=== PATIENT | female | born 1945 | race Caucasian/White ===

== ENCOUNTER → 2016-10-11 | Outpatient (CLI) | payer OTHER ==
[~2016-10-11] MED LIST: ACET-1256 PO; ALBINS/ INH; ALBU0.5N2 NEB; ALBUAER INH; ALBUAER PO; ALPR-411 PO; AMB5 PO; CALC500C70 PO; CHOL100010 PO; CHOL2000 PO; CLTP PO; CYAN100020 PO; DILT120C68 PO; DIPH25CA65 PO; DLTCD/240 PO; DOCU-94 PO; DRGTP12 TD; DULO-24 PO; FURO-85 PO; GUAI1TAB68 PO; HYDR-4717 PO; HYDR100T12 PO; HYDR200T5 PO; LDDP5 TD; MOME200A INH; MULT-506 PO; PRD/1 PO; PRD20 PO; PRVIN525X INH; RANI150T3 PO; SNK PO; TPRSR/25 PO; ULT50X PO; VLTG EXT; VNTHFA/IN INH
[2016-10-11 18:21] LABS: BLOOD UREA NITROGEN 35 mg/dl (7-18); BUN/CREATININE RATIO 24.6 (10-20); CALCIUM 8.6 mg/dl (8.5-10.1); CARBON DIOXIDE 25 mmol/L (21-32); CHLORIDE 104 mmol/L (98-107); GLUCOSE 123 mg/dl (70-99); POTASSIUM 3.5 mmol/L (3.5-5.1); SODIUM 139 mmol/L (136-145)
[2016-10-11 18:22] LABS: PHOSPHORUS 3.4 mg/dl (2.5-4.9)
--- NOTE | 2016-10-17 08:50 | CODING QUERY MEDICAL NECESSITY ---
SUPPORTING DIAGNOSIS NEEDED A supporting diagnosis is required for the test/procedure performed on this patient in order for us to be reimbursed by the patient's insurance. Please provide a supporting diagnosis for the following test/procedure listed below next to the test name along with your signature. *If there is no additional diagnosis for this patient that would support the following test/procedure please document that below next to the test/procedure. Test(s)/Procedure(s) that require a supporting diagnosis: * VIT D 25 HYDROXY DIAGNOSIS: * DOS: 10/11/16 Provider Signature: Date: Thank you Maite Velarde Health Information Management Once completed, please kindly fax back to [phone] For questions please call [phone]
== END | disposition home or self-care (01) ==
LOC: C.LAB1850 14:04
PROVIDERS: ATTEND Internal Medicine Nephrology
DX: E87.1 Hypo-osmolality and hyponatremia (principal); E55.9 Vitamin D deficiency, unspecified

== ENCOUNTER → 2016-10-22 | Outpatient (CLI) | payer OTHER ==
[~2016-10-22] MED LIST changes: +OPTIRAY 320 IV PRN
--- NOTE | 2016-10-22 14:31 | DIAGNOSTIC IMAGING REPORT ---
CT ANGIOGRAPHY OF THE CHEST, PULMONARY EMBOLUS PROTOCOL CLINICAL HISTORY: New onset shortness of breath. Ovarian cancer. COMPARISON STUDY: Chest CT July 27, 2014. TECHNIQUE: Following IV administration of 75 mL of Optiray-320, helical axial images of the chest were obtained utilizing the pulmonary embolus protocol. Maximal intensity projections and sagittal and coronal reformats were viewed on an independent 3D workstation. IV contrast was administered without complication. CT DOSE: 253.41 mGycm FINDINGS: No pulmonary emboli are identified. The heart is moderately enlarged. There is no pericardial effusion. There are no enlarged thoracic lymph nodes. There is a trace right pleural effusion. Associated airspace opacity likely reflects atelectasis. The central airways are patent. There is no pneumothorax. Bony thorax is unremarkable. Mild elevation of the right hemidiaphragm is unchanged. A few hepatic cysts are again noted. There is mild dilatation within visualized portions of the left collecting system. A small hiatal hernia is noted. IMPRESSION: 1. No pulmonary emboli identified. 2. Trace right pleural effusion. 3. No consolidation to suggest pneumonia. 4. Mild dilatation of visualized portions of the left renal collecting system, a nonspecific finding. This could be correlated with left flank pain. Electronically signed by: Dayton Downs M.D. 10/22/2016 2:29 PM Dictated Date/Time: 10/22/2016 2:20 PM
== END | disposition home or self-care (01) ==
LOC: C.CTS 13:23
PROVIDERS: ATTEND Nurse Practitioner
DX: C56.9 Malignant neoplasm of unspecified ovary (principal)

== ENCOUNTER 2016-10-23 13:30 | Observation (INO) | payer OTHER ==
[~2016-10-23] VITALS: Ht 157.5 cm; Wt 61.8 kg
[2016-10-23] VITALS (7 sets, daily range): BP systolic 130–154; BP diastolic 61–76; PULSE 74–79; TEMP 36.3–37.1; O2SAT 93–96; Ht 157.5 cm; Wt 61.8 kg
[~2016-10-23 13:30] MED LIST changes: -ALBINS/ INH; -AMB5 PO; -CALC500C70 PO; -CHOL2000 PO; -DLTCD/240 PO; -DRGTP12 TD; -GUAI1TAB68 PO; -HYDR100T12 PO; -LDDP5 TD; -OPTIRAY 320 IV PRN; -PRD20 PO; -PRVIN525X INH; -SNK PO; -TPRSR/25 PO; -ULT50X PO; -VLTG EXT; -VNTHFA/IN INH
[2016-10-23] MEDS ORDERED: VNTHFA/IN INH (13:59)
[2016-10-23] MEDS ORDERED: ALBINS/ INH (13:59)
[2016-10-23] MEDS ORDERED: CALC500C70 PO (13:59)
[2016-10-23] MEDS ORDERED: CHOL2000 PO (14:04)
[2016-10-23] MEDS ORDERED: PRVIN525X INH (14:04)
--- NOTE | 2016-10-23 15:21 | EMERGENCY ROOM VISIT NOTE ---
History Report prepared by Lavon: Fazal Santos Under the Supervision of: Dr. Jairo Lutz M.D. First contact with patient: 14:30 Chief Complaint: SHORTNESS OF BREATH Stated Complaint: SOB, EDEMA TREMORS Nursing Triage Summary: Triage Note: pt reports she has gained 6 lbs over 3 weeks. pt reports bilat leg edema. pt reports increased shortness of breath over the past several days. pt reports hx of copd. pt reports she is being treated for ovarian cancer - had chemo yesterday. pt reports she also had a ct scan of her chest yesterday to look for a clot and it was negative. History of Present Illness The patient is a 71 year old female who presents to the Emergency Room with complaints of worsening shortness of breath starting about 3 weeks ago. The patient also complains of worsening lower extremity edema. She also reports shakiness. She has a history of COPD. She has been using Albuterol and nebulizer treatment without relief. Her dose of Lasix was recently increased. The patient has one kidney on the left. She has stage IV ovarian cancer. She received chemotherapy yesterday. Her PCP referred her to the Emergency Room. The patient denies chest pain, abdominal pain, or any other complaints. Source of History: patient Onset: about 3 weeks ago Position: other (global) Quality: other (shortness of breath) Timing: worsening Modifying Factors (Relieving): other (Albuterol and nebulizer treatment without relief) Associated Symptoms: No abdominal pain, No chest pain Review of Systems See HPI for pertinent positives & negatives. A total of 10 systems reviewed and were otherwise negative. 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 Surgical Problems: (1) No pertinent past surgical history Family History FH: cancer Hypertension Kidney disease Social History Smoking Status: Never Smoker Alcohol Use: occasionally Marital Status: Housing Status: lives with significant other Occupation Status: unemployed Current/Historical Medications Scheduled Calcium/Vitamin D (Os-Corky 500 Plus D), 2 TAB PO BID Cholecalciferol (Vitamin D3), 1 CAP PO DAILY Cyanocobalamin (Vitamin B12), 1 TAB PO DAILY Diltiazem Hcl Ext Rel (Tiazac), 240 MG PO DAILY Duloxetine HCl (Cymbalta), 20 MG PO BID Furosemide (Lasix), 20 MG PO 3XWK Furosemide (Lasix), 40 MG PO 4XWK Hydralazine Hcl (Apresoline), 75 MG PO QID Hydroxychloroquine Sulfate (Plaquenil), 400 MG PO DAILY Multivitamin (Multivitamin), 1 TABLET PO DAILY Prednisone (Prednisone), 5 MG PO DAILY Ranitidine Hcl (Zantac), 150 MG PO DAILY Scheduled PRN Acetaminophen (Tylenol), 1,000 MG PO for Pain Albuterol Hfa (Ventolin Hfa), 2 PUFFS INH Q6H PRN for Shortness of Breath Albuterol Sulf (Albuterol Sulfate), 1 INHA INH UD PRN for Shortness of Breath Alprazolam (Xanax), 0.5 MG PO DAILY PRN for Anxiety Allergies Coded Allergies: Gemcitabine (Verified Allergy, Severe, drug induced rash, 09/28/16) Lanolin (Verified Allergy, Intermediate, RASH, 09/28/16) Latex (Verified Allergy, Intermediate, RASH, 09/28/16) Chlorhexidine (Verified Allergy, Mild, rash, 09/28/16) Codeine (Verified Allergy, Unknown, grits teeth, 10/23/16) Lactose (Verified Allergy, Unknown, GI SYMPTOMS, 10/23/16) Penicillins (Verified Allergy, Unknown, `, 09/28/16) Adhesives (Verified Adverse Reaction, Intermediate, RASH, 09/28/16) Physical Exam Vital Signs Date Time Temp Pulse Resp B/P Pulse Ox O2 Delivery O2 Flow Rate FiO2 10/23/16 18:50 36.3 78 20 131/75 96 10/23/16 18:35 80 10/23/16 18:33 36.3 79 20 135/72 95 10/23/16 17:59 85 20 132/80 96 Room Air 10/23/16 16:38 78 20 120/62 96 Room Air 10/23/16 15:59 96 Room Air 10/23/16 15:59 96 Room Air 10/23/16 14:35 76 16 129/69 94 Room Air 10/23/16 14:35 94 Room Air 10/23/16 14:32 74 10/23/16 13:40 36.6 79 22 149/82 90 Room Air Physical Exam GENERAL: Patient is a healthy-appearing well-nourished HEAD: Normocephalic atraumatic EYES: Ocular movements intact pupils equal and react to light OROPHARYNX mucous membranes are moist no exudates present no erythema or edema present NECK: Supple no nuchal rigidity CHEST: Good equal expansion LUNGS: Clear and equal to auscultation CARDIAC: Normal S1 and S2 ABDOMEN: Soft nontender no guarding BACK: No CVA tenderness RECTAL: Brown stool, heme negative. EXTREMITIES: No pain upon palpation normal muscle strength in all groups no clubbing cyanosis or edema NEURO: Patient is following commands is answering questions appropriately. Alert and oriented x3 Cranial Nerves 2-12 grossly intact Medical Decision & Procedures ER Provider Diagnostic Interpretation: X-ray results as stated below per my interpretation and radiologist interpretation. US results as stated below per my review and radiologist interpretation: BILATERAL LOWER EXTREMITY VENOUS DOPPLER CLINICAL HISTORY: Bilateral leg swelling. COMPARISON STUDY: Right lower extremity venous Doppler September 09, 2012. TECHNIQUE: Sonography of the deep venous system of the bilateral lower extremity was performed. Compression and augmentation were evaluated. FINDINGS: The bilateral common femoral, superficial femoral and popliteal veins were compressible. Augmentation was normal. Flow was shown within the deep calf vessels. A 10 x 3 x 4.2 cm left popliteal fluid collection with low level internal echoes likely reflects a large popliteal cyst. IMPRESSION: 1. No evidence of deep venous thrombus within the bilateral lower extremities. 2. 10 x 3 x 4.2 cm left popliteal fluid collection. This likely reflects a large popliteal cyst. Electronically signed by: Dayton Downs M.D. 10/23/2016 5:33 PM Dictated Date/Time: 10/23/2016 5:31 PM CHEST ONE VIEW PORTABLE CLINICAL HISTORY: Shortness of breath. COMPARISON STUDY: 06/25/2016 FINDINGS: The heart is normal in size. There is mild elevation right hemidiaphragm. There is no focal pulmonary consolidation. There is no failure. There are no pleural effusions.[ A left-sided A-Port catheter is visualized. IMPRESSION: Mild elevation of the right hemidiaphragm. No evidence of focal pulmonary consolidation. Electronically signed by: Zain Lai M.D. 10/23/2016 3:21 PM Dictated Date/Time: 10/23/2016 3:20 PM Laboratory Results Test 10/23/16 00:00 10/23/16 15:45 10/23/16 16:08 10/23/16 18:00 Urine Color YELLOW Urine Appearance CLEAR (CLEAR) Urine pH 5.0 (4.5-7.5) Urine Specific [place] 1.011 (1.000-1.030) Urine Protein 1+ (NEG) Urine Glucose (UA) NEG (NEG) Urine Ketones NEG (NEG) Urine Occult Blood NEG (NEG) Urine Nitrite NEG (NEG) Urine Bilirubin NEG (NEG) Urine Urobilinogen NEG (NEG) Urine Leukocyte Esterase NEG (NEG) Urine WBC (Auto) 1-5 /hpf (0-5) Urine RBC (Auto) 0-4 /hpf (0-4) Urine Hyaline Casts (Auto) 1-5 /lpf (0-5) Urine Epithelial Cells (Auto) 5-10 /lpf (0-5) Urine Bacteria (Auto) NEG (NEG) Immature Granulocyte % (Auto) 0.3 % White Blood Count 6.26 K/uL (4.8-10.8) Red Blood Count 2.75 M/uL (4.2-5.4) Hemoglobin 8.7 g/dL (12.0-16.0) Hematocrit 25.0 % (37-47) Mean Corpuscular Volume 90.9 fL (80-100) Mean Corpuscular Hemoglobin 31.6 pg (25-34) Mean Corpuscular Hemoglobin Concent 34.8 g/dl (32-36) Platelet Count 271 K/uL (130-400) Mean Platelet Volume 8.7 fL (7.4-10.4) Neutrophils (%) (Auto) 83.5 % Lymphocytes (%) (Auto) 7.3 % Monocytes (%) (Auto) 8.9 % Eosinophils (%) (Auto) 0.0 % Basophils (%) (Auto) 0.0 % Neutrophils # (Auto) 5.22 K/uL (1.4-6.5) Lymphocytes # (Auto) 0.46 K/uL (1.2-3.4) Monocytes # (Auto) 0.56 K/uL (0.11-0.59) Eosinophils # (Auto) 0.00 K/uL (0-0.5) Basophils # (Auto) 0.00 K/uL (0-0.2) Immature Granulocyte # (Auto) 0.02 K/uL (0.00-0.02) Red Blood Cell Morphology Unremarkable Total Bilirubin 0.2 mg/dl (0.2-1) Aspartate Amino Transf (AST/SGOT) 32 U/L (15-37) Alanine Aminotransferase (ALT/SGPT) 45 U/L (12-78) Alkaline Phosphatase 56 U/L (45-117) Total Creatine Kinase 171 U/L (26-192) Creatine Kinase MB 6.1 ng/ml (0.5-3.6) Creatine Kinase MB Ratio 3.6 (0-3.0) Troponin I 0.044 ng/ml (0-0.045) Pro-B-Type Natriuretic Peptide 3302 pg/ml (0-900) Total Protein 5.8 gm/dl (6.4-8.2) Albumin 3.0 gm/dl (3.4-5.0) Globulin 2.8 gm/dl (2.5-4.0) Albumin/Globulin Ratio 1.1 (0.9-2) Bedside Hemoglobin 7.8 g/dl (12.0-16.0) Bedside Hematocrit 23 % (37-47) Bedside Sodium 132 mEq/L (135-144) Bedside Potassium 4.2 mEq/L (3.3-5.0) Bedside Chloride 99 mEq/L (101-112) Bedside Total CO2 22 mEq/l (24-31) Bedside Blood Urea Nitrogen 32 mg/dl (7-18) Bedside Creatinine 1.7 mg/dl (0.6-1.3) Bedside Glucose (other) 101 mg/dl (70-99) Bedside Ionized Calcium (Babak) 1.05 mmol/l (1.12-1.32) Influenza Type A (RT-PCR) Neg for Influ A (NEG) Influenza Type B (RT-PCR) Neg for Influ B (NEG) Labs reviewed by ED physician. ECG Indication: SOB/dyspnea Rate (beats per minute): 75 Rhythm: normal sinus Findings: no acute ischemic change, no ectopy ED Course 1430: Past medical records reviewed. The patient was evaluated in room B05. A complete history and physical examination was performed. 1950: Upon reexamination the patient is resting comfortably. I discussed results and treatment plan with the patient. She verbalizes agreement and understanding. [facility] The patient will be evaluated for further management. Medical Decision Differential diagnosis: Etiologies such as infections, reactive airway disease, pneumonia, pneumothorax , COPD, CHF, cardiac ischemia, pulmonary embolism, musculoskeletal, gastrointestinal, as well as others were entertained. This is a 71-year-old female who presents emergency department complaining of increasing shortness of breath. The patient was sent in by her cancer doctor who also ordered a CAT scan of the chest yesterday which was negative for PE. I will note that the patient needed a blood transfusion 3 weeks ago and her hemoglobin has been declining. She is heme-negative on rectal exam. I did discuss the case with the patient's cancer doctor who felt that the patient can be discharged home. I did discuss the case with the hospitalist service because the patient is adamantly very angry about being sent home. For this reason the patient was admitted to the hospitalist service. Blood consent was obtained and signed by the patient. The patient was ordered 2 units of packed red blood cells. Consults Time Called: 1944 Consulting Physician[facility] Returned Call: [address] Velarde from the [facility]. Impression Primary Impression: Symptomatic anemia Additional Impression: Dyspnea Critical Care I have personally spent greater than 30 minutes of critical care time in the direct management of this patient. This includes bedside care, interpretation of diagnostic studies, and testing, discussion with consultants, patient, and family members, and other required patient management activities. This 30 minutes is in excess of all separately billable procedures. Scribe Attestation The scribe's documentation has been prepared under my direction and personally reviewed by me in its entirety. I confirm that the note above accurately reflects all work, treatment, procedures, and medical decision making performed by me. Departure Information Dispostion Being Evaluated By Hospitalist Referrals Krzysztof Crocker MD (PCP) Patient Instructions [facility] Problem Qualifiers Additional Impression: Dyspnea Dyspnea type: dyspnea on exertion Qualified Codes: R06.09 - Other forms of dyspnea
[2016-10-23 16:22] LABS: MEAN CELL VOLUME 90.9 fL (80-100); MEAN CORPUSCULAR HEMOGLOBIN 31.6 pg (25-34); MEAN CORPUSCULAR HGB CONC 34.8 g/dl (32-36); MEAN PLATELET VOLUME 8.7 fL (7.4-10.4); PLATELET COUNT 271 K/uL (130-400); RED BLOOD COUNT 2.75 M/uL (4.2-5.4); WHITE BLOOD COUNT 6.26 K/uL (4.8-10.8)
[2016-10-23 16:24] LABS: ISTAT CREATININE 1.7 mg/dl (0.6-1.3); ISTAT HEMOGLOBIN 7.8 g/dl (12.0-16.0); ISTAT IONIZED CALCIUM 1.05 mmol/l (1.12-1.32)
[2016-10-23 16:32] LABS: BUN/CREATININE RATIO 19.9 (10-20); CALCIUM 8.5 mg/dl (8.5-10.1); CREATININE 1.7 mg/dl (0.60-1.20); POTASSIUM 4.2 mmol/L (3.5-5.1)
[2016-10-23 16:38] LABS: ALB/GLOB RATIO 1.1 (0.9-2); CKMB/CK RATIO 3.6 (0-3.0)
[2016-10-23 17:03] LABS: COMPLETE YES; IG% 0.3 %; LYMPH % 7.3 %; LYMPH ABS # 0.46 K/uL (1.2-3.4); MONO % 8.9 %; NEUT % 83.5 %
--- NOTE | 2016-10-23 17:35 | DIAGNOSTIC IMAGING REPORT ---
BILATERAL LOWER EXTREMITY VENOUS DOPPLER CLINICAL HISTORY: Bilateral leg swelling. COMPARISON STUDY: Right lower extremity venous Doppler September 09, 2012. TECHNIQUE: Sonography of the deep venous system of the bilateral lower extremity was performed. Compression and augmentation were evaluated. FINDINGS: The bilateral common femoral, superficial femoral and popliteal veins were compressible. Augmentation was normal. Flow was shown within the deep calf vessels. A 10 x 3 x 4.2 cm left popliteal fluid collection with low level internal echoes likely reflects a large popliteal cyst. IMPRESSION: 1. No evidence of deep venous thrombus within the bilateral lower extremities. 2. 10 x 3 x 4.2 cm left popliteal fluid collection. This likely reflects a large popliteal cyst. Electronically signed by: Dayton Downs M.D. 10/23/2016 5:33 PM Dictated Date/Time: 10/23/2016 5:31 PM
[2016-10-23] MEDS ORDERED: ACETAMINOPHEN 325 MG TAB PO PRN (19:00)
[2016-10-23] MEDS ORDERED: ALBUTEROL HFA 8 GM INHALER INH PRN (19:00)
[2016-10-23] MEDS ORDERED: MAGNESIUM HYDROXIDE SUSP 30 ML UDC PO PRN (19:00)
[2016-10-23] MEDS ORDERED: ALBUTEROL 0.5% NEB SOLN 2.5 MG/0.5 ML VIAL INH PRN (19:00)
[2016-10-23] MEDS ORDERED: POLYETHYLENE (MIRALAX) 17 GM PACK PO PRN (19:00)
[2016-10-23] MEDS ORDERED: ALUMINUM/MAGNESIUM/SIMETH (MAALOX MAX) 30 ML UDC PO PRN (19:00)
[2016-10-23] MEDS ORDERED: ONDANSETRON INJ 2 MG/ML 2 ML VIAL IV PRN (19:00)
[2016-10-23] MEDS ORDERED: ALPRAZOLAM 0.5 MG TAB PO PRN (19:00)
--- NOTE | 2016-10-23 19:31 | History and Physical ---
History & Physical Date & Time of Service: Oct 23, 2016 at 18:52 Chief Complaint: Sob, Edema Tremors Primary Care Physician: Krzysztof Crocker MD History of Present Illness Source: patient, caregiver Patient is a pleasant 71 y/o female, with PMHx of HTN, CKD stage III, anemia, serous adenocarcinoma of gynecological origin, COPD/asthma, chronic lower extremity edema, GERD, and RA, who presented to the ED because of worsening SOB at rest. Patient admits to chronic SOB but states that today SOB is occurring at rest. Patient saw Dr. Joyner recently, and was prescribed Dulera x4 weeks. It was also discussed with patient that the cause of her SOB could be to metastatic disease. Patient was unhappy with her care from Dr. Joyner and refuses to follow-up with him. She states she did try Dulera with no improvement in her symptoms. Patient also complains of worsening bilateral lower extremity edema. Per patient edema is starting to travel up her legs. However, patient states her legs look better than baseline for her currently. Patient has been receiving chemotherapy x5 years now for gynecological adenocarcinoma. Her last treatment was yesterday (10/22). According to patient, she received chemo ~3 weeks ago and required 2 units PRBC here in the ED after treatment- she was not admitted at that time. She states her symptoms are "way" worse than any other time she was told she was anemic. +tremor- ongoing issue, seems worse today. +lightheadedness. Patient denies any fever, chills, sweats, dizziness, vision changes, CP, palpitations, wheezing, cough, abdominal pain, nausea, vomiting, diarrhea, urinary symptoms, melena, numbness/tingling, weakness, muscle/joint pain, depression, active bleeding, or new skin discoloration/changes. Past Medical/Surgical History 1. Anemia 2. Serous adenocarcinoma 3. COPD/asthma 4. Anxiety 5. Stage III CKD 6. HTN 7. Chronic lower extremity edema, bilateral 8. RA 9. GERD Family History FH: cancer Hypertension Kidney disease Social History Smoking Status: Former Smoker Marital Status: Housing status: lives with family Occupational Status: unemployed Immunizations History of Influenza Vaccine: Yes History of Tetanus Vaccine?: unknown History of Pneumococcal: Yes History of Hepatitis B Vaccine: No Multi-Drug Resistant Organisms History of MDRO: No Allergies Coded Allergies: Gemcitabine (Verified Allergy, Severe, drug induced rash, 09/28/16) Lanolin (Verified Allergy, Intermediate, RASH, 09/28/16) Latex (Verified Allergy, Intermediate, RASH, 09/28/16) Chlorhexidine (Verified Allergy, Mild, rash, 09/28/16) Codeine (Verified Allergy, Unknown, grits teeth, 10/23/16) Lactose (Verified Allergy, Unknown, GI SYMPTOMS, 10/23/16) Penicillins (Verified Allergy, Unknown, `, 09/28/16) Adhesives (Verified Adverse Reaction, Intermediate, RASH, 09/28/16) Home Medications Scheduled Calcium/Vitamin D (Os-Corky 500 Plus D), 2 TAB PO BID Cholecalciferol (Vitamin D3), 1 CAP PO DAILY Cyanocobalamin (Vitamin B12), 1 TAB PO DAILY Diltiazem Hcl Ext Rel (Tiazac), 240 MG PO DAILY Duloxetine HCl (Cymbalta), 20 MG PO BID Furosemide (Lasix), 20 MG PO 3XWK Furosemide (Lasix), 40 MG PO 4XWK Hydralazine Hcl (Apresoline), 75 MG PO QID Hydroxychloroquine Sulfate (Plaquenil), 400 MG PO DAILY Multivitamin (Multivitamin), 1 TABLET PO DAILY Prednisone (Prednisone), 5 MG PO DAILY Ranitidine Hcl (Zantac), 150 MG PO DAILY Scheduled PRN Acetaminophen (Tylenol), 1,000 MG PO for Pain Albuterol Hfa (Ventolin Hfa), 2 PUFFS INH Q6H PRN for Shortness of Breath Albuterol Sulf (Albuterol Sulfate), 1 INHA INH UD PRN for Shortness of Breath Alprazolam (Xanax), 0.5 MG PO DAILY PRN for Anxiety Physical Exam Vital Signs Date Time Temp Pulse Resp B/P Pulse Ox O2 Delivery O2 Flow Rate FiO2 10/23/16 18:50 36.3 78 20 131/75 96 10/23/16 18:35 80 10/23/16 18:33 36.3 79 20 135/72 95 10/23/16 17:59 85 20 132/80 96 Room Air 10/23/16 16:38 78 20 120/62 96 Room Air 10/23/16 15:59 96 Room Air 10/23/16 15:59 96 Room Air 10/23/16 14:35 76 16 129/69 94 Room Air 10/23/16 14:35 94 Room Air 10/23/16 14:32 74 10/23/16 13:40 36.6 79 22 149/82 90 Room Air General Appearance: no apparent distress Head: normocephalic, atraumatic Eyes: normal inspection, PERRL ENT: hearing grossly normal Neck: supple Respiratory/Chest: lungs clear, no respiratory distress, no accessory muscle use Cardiovascular: regular rate, rhythm, normal peripheral pulses Abdomen/GI: normal bowel sounds, non tender, soft Back: normal inspection Extremities/Musculoskelatal: no calf tenderness, + swelling (+2 pitting edema of bilteral lower extremity from knee to distal foot ) Neurologic/Psych: alert, normal mood/affect, oriented x 3, + pertinent finding (tremor ) Skin: normal color, warm/dry, no rash Diagnostics Laboratory Results Results Past 24 Hours Test 10/23/16 15:45 10/23/16 16:08 10/23/16 18:00 Range/Units White Blood Count 6.26 4.8-10.8 K/uL Red Blood Count 2.75 4.2-5.4 M/uL Hemoglobin 8.7 12.0-16.0 g/dL Hematocrit 25.0 37-47 % Mean Corpuscular Volume 90.9 80-100 fL Mean Corpuscular Hemoglobin 31.6 25-34 pg Mean Corpuscular Hemoglobin Concent 34.8 32-36 g/dl Platelet Count 271 130-400 K/uL Mean Platelet Volume 8.7 7.4-10.4 fL Neutrophils (%) (Auto) 83.5 % Lymphocytes (%) (Auto) 7.3 % Monocytes (%) (Auto) 8.9 % Eosinophils (%) (Auto) 0.0 % Basophils (%) (Auto) 0.0 % Neutrophils # (Auto) 5.22 1.4-6.5 K/uL Lymphocytes # (Auto) 0.46 1.2-3.4 K/uL Monocytes # (Auto) 0.56 0.11-0.59 K/uL Eosinophils # (Auto) 0.00 0-0.5 K/uL Basophils # (Auto) 0.00 0-0.2 K/uL RDW Standard Deviation 52.1 36.4-46.3 fL RDW Coefficient of Variation 15.6 11.5-14.5 % Immature Granulocyte % (Auto) 0.3 % Immature Granulocyte # (Auto) 0.02 0.00-0.02 K/uL Red Blood Cell Morphology Unremarkable Sodium Level 136 136-145 mmol/L Potassium Level 4.2 3.5-5.1 mmol/L Chloride Level 99 98-107 mmol/L Carbon Dioxide Level 22 21-32 mmol/L Anion Gap 15.0 16.0 16-25 mmol/L Blood Urea Nitrogen 34 7-18 mg/dl Creatinine 1.70 0.60-1.20 mg/dl Est Creatinine Clear Calc Drug Dose 25.7 ml/min Estimated GFR () 34.1 Estimated GFR (Non- 29.4 BUN/Creatinine Ratio 19.9 10-20 Random Glucose 98 70-99 mg/dl Calcium Level 8.5 8.5-10.1 mg/dl Total Bilirubin 0.2 0.2-1 mg/dl Aspartate Amino Transf (AST/SGOT) 32 15-37 U/L Alanine Aminotransferase (ALT/SGPT) 45 12-78 U/L Alkaline Phosphatase 56 45-117 U/L Total Creatine Kinase 171 26-192 U/L Creatine Kinase MB 6.1 0.5-3.6 ng/ml Creatine Kinase MB Ratio 3.6 0-3.0 Troponin I 0.044 0-0.045 ng/ml Pro-B-Type Natriuretic Peptide 3302 0-900 pg/ml Total Protein 5.8 6.4-8.2 gm/dl Albumin 3.0 3.4-5.0 gm/dl Globulin 2.8 2.5-4.0 gm/dl Albumin/Globulin Ratio 1.1 0.9-2 Bedside Hemoglobin 7.8 12.0-16.0 g/dl Bedside Hematocrit 23 37-47 % Bedside Sodium 132 135-144 mEq/L Bedside Potassium 4.2 3.3-5.0 mEq/L Bedside Chloride 99 101-112 mEq/L Bedside Total CO2 22 24-31 mEq/l Bedside Blood Urea Nitrogen 32 7-18 mg/dl Bedside Creatinine 1.7 0.6-1.3 mg/dl Bedside Glucose (other) 101 70-99 mg/dl Bedside Ionized Calcium (Babak) 1.05 1.12-1.32 mmol/l Microbiology Results 10/23/16 Blood Culture, Received Pending 10/23/16 Blood Culture, Received Pending Diagnostic Radiology CHEST ONE VIEW PORTABLE CLINICAL HISTORY: Shortness of breath. COMPARISON STUDY: 06/25/2016 FINDINGS: The heart is normal in size. There is mild elevation right hemidiaphragm. There is no focal pulmonary consolidation. There is no failure. There are no pleural effusions.[ A left-sided A-Port catheter is visualized. IMPRESSION: Mild elevation of the right hemidiaphragm. No evidence of focal pulmonary consolidation. Electronically signed by: Zain Lai M.D. 10/23/2016 3:21 PM Dictated Date/Time: 10/23/2016 3:20 PM The status of this report is Signed. Draft = Not yet reviewed or approved by Radiologist. Signed = Reviewed and approved by Radiologist. BILATERAL LOWER EXTREMITY VENOUS DOPPLER CLINICAL HISTORY: Bilateral leg swelling. COMPARISON STUDY: Right lower extremity venous Doppler September 09, 2012. TECHNIQUE: Sonography of the deep venous system of the bilateral lower extremity was performed. Compression and augmentation were evaluated. FINDINGS: The bilateral common femoral, superficial femoral and popliteal veins were compressible. Augmentation was normal. Flow was shown within the deep calf vessels. A 10 x 3 x 4.2 cm left popliteal fluid collection with low level internal echoes likely reflects a large popliteal cyst. IMPRESSION: 1. No evidence of deep venous thrombus within the bilateral lower extremities. 2. 10 x 3 x 4.2 cm left popliteal fluid collection. This likely reflects a large popliteal cyst. Electronically signed by: Dayton Downs M.D. 10/23/2016 5:33 PM Dictated Date/Time: 10/23/2016 5:31 PM The status of this report is Signed. Draft = Not yet reviewed or approved by Radiologist. Signed = Reviewed and approved by Radiologist. EKG ROCCO SHELTON ID:[id number] 23-OCT-2016 16:18:28 [facility] Normal sinus rhythm Incomplete right bundle branch block Borderline ECG When compared with ECG of 29-JUN-2016 00:13, Incomplete right bundle branch block is now Present Confirmed by RADHIKA MARTÍNEZ ([id number]) on 10/23/2016 7:10:02 PM 25mm/s 10mm/mV 150Hz 8.0 SP2 12SL 241 HD LEANNE: 12 Referred by: Referred Self Confirmed By: RADHIKA MARTÍNEZ Vent. rate 75 BPM ID interval 184 ms QRS duration 118 ms QT/QTc 436/486 ms P-R-T axes 75 -8 1945 (71 yr) Female 1lb Room:B05 Loc:15 Drain Tile Machine Operator:Karoline Morgan ind: Impression Assessment and Plan 71 y/o female, with PMHx of HTN, CKD stage III, anemia, serous adenocarcinoma, COPD/asthma, chronic lower extremity edema, GERD, and RA, who presented to the ED because of worsening SOB at rest. Anemia, likely secondary to chemotherapy, with hgb of 8.7 - Admit to tele observation - Transfuse 1 unit PRBC - Stool heme occult negative in ED - Pending blood cultures - Follow CBC and PRP - Influenza pending - Of note, patient received chemotherapy ~3 weeks ago and required 2 units PRBC. COPD/asthma: - Continue Ventolin and DuoNebs PRN - Patient followed with Dr. Joyner who recommended trying Dulera x4 weeks. Patient states she saw no improvement in symptoms. She refuses to see Dr. Joyner as she was not happy with his care. - CT on 10/22- No pulmonary emboli identified. Trace right pleural effusion. No consolidation to suggest pneumonia. Mild dilatation of visualized portions of the left renal collecting system, a nonspecific finding. - CXR on 10/23- Mild elevation of the right hemidiaphragm. No evidence of focal pulmonary consolidation. CKD stage III- acquired single kidney: - Kidney function stable - Follow PRP - Follows with Dr. Lo Serous carcinoma of gynecologic origin: - Follows with Dr. Louis - Continue Plaquenil - Receiving chemotherapy x5 years, last treatment was on 10/23. HTN: - Continue Hydralazine 75 mg PO QID - Continue Diltiazem 240 mg PO daily Chronic lower extremity edema, bilateral: - Currently better than baseline per patient - Continue Lasix 40 mg PO 4XWK and 20 mg PO 3XWK - Bilateral lower extremity U/S- No evidence of deep venous thrombus within the bilateral lower extremities. 10 x 3 x 4.2 cm left popliteal fluid collection. This likely reflects a large popliteal cyst. - ECHO on 06/26/16- Left ventricular systolic function is normal. No regional wall motion abnormalities noted. Ejection Fraction = 60-65%. There is mild concentric left ventricular hypertrophy. Grade I diastolic dysfunction, ( abnormal relaxation pattern). No significant valvular pathology. - Follows with cardiology, Dr. Ortez RA: - Continue Prednisone 5 mg PO PRN for pain Anxiety: - Continue Cymbalta 20 mg PO BID - Continue Xanax 0.5 mg PO PRN GERD: - Continue Zantac 150 mg PO daily GI Prophylaxis: - Maalox PRN - IV Zofran PRN - Colace and/or Milk of Mag PRN DVT prophylaxis: - Anticoagulation contraindicated due to anemia - RUBEN and SCDs Code Status: - LEVEL I FULL Dispo: - Lives at home with . Has home health Saturday-Saturday 9-5 Level of Care Telemetry Resuscitation Status FULL RESUSCITATION VTE Prophylaxis VTE Risk Assessment Done? Y/N: Yes Risk Level: Moderate Given or contraindicated: T.E.D. Stockings, SCD's, Contraindicated
[2016-10-23] MEDS ORDERED: IV FLUIDS COMPLETED PRN (19:45)
[2016-10-23 20:13] LABS: INFLUENZA A PCR Neg for Influ A (NEG); INFLUENZA B PCR Neg for Influ B (NEG)
[2016-10-23 20:40] LABS: URINE APPEARANCE CLEAR (CLEAR); URINE BILIRUBIN NEG (NEG); URINE COLOR YELLOW; URINE NITRITE NEG (NEG); URINE SPECIFIC GRAVITY 1.011 (1.000-1.030); UROBILINOGEN NEG (NEG)
[2016-10-23 20:45] LABS: MANUAL MICROSCOPIC REQUIRED? NO; REVIEW REQ? NO
[2016-10-23] MEDS: DULOXETINE HCL 20 MG CAP PO SCH (21:26)
[2016-10-23] MEDS: CALCIUM 600MG + VIT D 400 IU TAB PO SCH (21:26)
[2016-10-23] MEDS ORDERED: NURSING VERBAL MED ORDER ONE (21:30)
[2016-10-23] MEDS ORDERED: ALBUTEROL 0.083% NEBU SOLN 3 ML VIAL INH PRN (22:00)
[2016-10-24] VITALS (7 sets, daily range): BP systolic 106–135; BP diastolic 67–75; PULSE 68–88; TEMP 36.5–37; O2SAT 88–95
[2016-10-24 05:32] LABS: HEMATOCRIT 26.4 % (37-47); MEAN CELL VOLUME 90.7 fL (80-100); MEAN CORPUSCULAR HGB CONC 35.2 g/dl (32-36); MEAN PLATELET VOLUME 8.4 fL (7.4-10.4); PLATELET COUNT 236 K/uL (130-400); RED BLOOD COUNT 2.91 M/uL (4.2-5.4)
[2016-10-24 06:07] LABS: BUN/CREATININE RATIO 21.7 (10-20); CALCIUM 8.1 mg/dl (8.5-10.1); CREATININE 1.6 mg/dl (0.60-1.20); POTASSIUM 4.3 mmol/L (3.5-5.1)
[2016-10-24] MEDS ORDERED: MULTIVITAMIN TAB PO SCH (09:00)
[2016-10-24] MEDS ORDERED: DILTIAZEM HCL 120 MG EXT REL CAP PO SCH (09:00)
[2016-10-24] MEDS ORDERED: HYDROXYCHLOROQUINE SULFATE 200 MG TAB PO SCH (09:00)
[2016-10-24] MEDS ORDERED: FUROSEMIDE 20 MG TAB PO SCH (09:00)
[2016-10-24] MEDS ORDERED: RANITIDINE HCL 150 MG TAB PO SCH (09:00)
[2016-10-24] MEDS: CALCIUM 600MG + VIT D 400 IU TAB PO SCH (09:55)
[2016-10-24] MEDS: DULOXETINE HCL 20 MG CAP PO SCH (09:56)
--- NOTE | 2016-10-24 10:26 | Discharge Instructions ---
Discharge Instructions Admission Reason for Admission: Symptomatic Anemia Discharge Discharge Diagnosis / Problem: Symptomatic anemia Discharge Goals Goal(s): Decrease discomfort, Diagnostic testing, Therapeutic intervention Activity Recommendations Activity Limitations: resume your previous activity (as tolerated) . Instructions / Follow-Up Instructions / Follow-Up You were admitted to the hospital for overnight observation due to worsening shortness of breath and fatigue. Your hemoglobin was found to be low at 8.7, whereas your baseline level appears to be around 10, indicating acute on chronic symptomatic anemia. Your stool was checked for blood, which was negative. Your shortness of breath was worked up to rule out other causes besides anemia. A CT of your chest did not show any pulmonary emboli (clots in your lungs) or pneumonia. A recent echocardiogram (ultrasound of your heart) did not show any significant abnormalities. An ultrasound of your legs was negative for clots. Your anemia and symptoms are likely caused by your chemotherapy, and you will need to follow up with oncology as an outpatient. You did receive 1 unit of blood while in the hospital, which improved your hemoglobin to 9.3. Your vital signs have remained stable. No changes have been made to your medications, so please continue to take these as prescribed. Please follow up with your oncologist as soon as possible regarding your hospital stay. Please seek medical attention if you experience fevers, chills, sweats, chest pain, severe shortness of breath, nausea, vomiting, red hot painful extremities , lightheadedness or loss of consciousness. Current Hospital Diet Patient's current hospital diet: Regular Diet Discharge Diet Recommended Diet: Regular Diet Pending Studies Studies pending at discharge: yes List of pending studies: Blood cultures Medical Emergencies . Who to Call and When: Medical Emergencies: If at any time you feel your situation is an emergency, please call 911 immediately. . Non-Emergent Contact Non-Emergency issues call your: Primary Care Provider, Oncologist Call Non-Emergent contact if: you have a fever, you have any medication questions . Past History Medical & Surgical History: (1) Symptomatic anemia (2) Shortness of breath (3) Serous adenocarcinoma . "Provider Documentation" section prepared by Jennifer Webb. VTE Core Measure Inpt VTE Proph given/why not?: Pinky Raza, JAMES's
--- NOTE | 2016-10-24 11:11 | Discharge Summary ---
Discharge Summary Admission Date: Oct 23, 2016 at 18:52 Discharge Date: Oct 24, 2016 Discharge Disposition: Home with services Principal Diagnosis: Symptomatic anemia Problems/Secondary Diagnoses: (1) Anemia Status: Chronic Immunizations: Have You Had Influenza Vaccine: Yes History of Tetanus Vaccine?: unknown History of Pneumococcal: Yes History of Hepatitis B Vaccine: No (Jennifer Webb, GERMAN) Medication Reconciliation Continued Medications: Acetaminophen (Tylenol) 500 Mg Tab 1000 MG PO PRN for Pain, TAB Albuterol Hfa (Ventolin Hfa) 200 Puffs/84321 Mcg Aers 2 PUFFS INH Q6H PRN for Shortness of Breath, #1 INHALER Albuterol Sulf (Albuterol Sulfate) 2.5 Mg/0.5 Ml Nebu 1 INHA INH UD PRN for Shortness of Breath Alprazolam (Xanax) 0.5 Mg Tab 0.5 MG PO DAILY PRN for Anxiety, TAB Calcium/Vitamin D (Os-Corky 500 Plus D) Tab 2 TAB PO BID, TAB Cholecalciferol (Vitamin D3) 2,000 Unit Cap 1 CAP PO DAILY for 90 Days, #90 CAP 3 Refills Cyanocobalamin (Vitamin B12) 1,000 Mcg Tab 1 TAB PO DAILY Diltiazem Hcl Ext Rel (Tiazac) 120 Mg Capcr 240 MG PO DAILY, CAP Duloxetine HCl (Cymbalta) 20 Mg Cap 20 MG PO BID for 30 Days, #60 CAP Furosemide (Lasix) 20 Mg Tab 20 MG PO 3XWK, TAB mon, wed, fri Furosemide (Lasix) 20 Mg Tab 40 MG PO 4XWK, TAB sat, , sat, sun Hydralazine Hcl (Apresoline) 50 Mg Tab 75 MG PO QID, TAB Hydroxychloroquine Sulfate (Plaquenil) 200 Mg Tab 400 MG PO DAILY, TAB Multivitamin (Multivitamin) Tab 1 TABLET PO DAILY, 0 Refills Prednisone (Prednisone) 1 Mg Tab 5 MG PO DAILY for joint pain, TAB Ranitidine Hcl (Zantac) 150 Mg Tab 150 MG PO DAILY, TAB Referrals At Discharge Follow up Referrals: Oncology/Hematology Referral - First Available with Clarisa Johnson CRNP Discharge Exam The patient reports feeling slightly better today than yesterday. She states that she still has shortness of breath at rest as well as with exertion, but states that it has improved somewhat since she first arrived. She was able to walk around in the hallway this morning with less difficulty compared to yesterday. The swelling in her legs is unchanged. The patient states that she is ready to go home and that she will go see her oncologist, Clarisa Johnson, later today. Review of Systems: Constitutional: + fatigue, No chills, No fever, No sweats, No weakness Eyes: No diplopia, No eye pain, No worsening of vision ENT: No hearing loss, No sore throat, No trouble swallowing Respiratory: + dyspnea on exertion, + shortness of breath, No cough, No wheezing Cardiovascular: No chest pain, No claudication, No palpitations Abdomen: No nausea, No pain, No vomiting Musculoskeletal: No calf pain, No joint pain, No muscle pain Genitourinary - Female: No dysuria, No hematuria, No urinary retention Neurologic: + numbness/tingling (chronic in LLE), No paralysis, No weakness Integumentary: No color change, No itch, No rash Physical Exam: General Appearance: WD/WN, no apparent distress, + pertinent finding ( appears chronically ill) Eyes: normal inspection, PERRL, EOMI ENT: normal ENT inspection, hearing grossly normal, pharynx normal Neck: supple, no JVD, trachea midline Respiratory/Chest: lungs clear, normal breath sounds, no respiratory distress, + decreased breath sounds Cardiovascular: regular rate, rhythm, no gallop, no murmur Abdomen / GI: normal bowel sounds, non tender, soft Extremities: normal inspection, no calf tenderness, + swelling (2+ pitting edema of lower extremities from ankles to knees with minimal swelling in distal thighs bilaterally) Neurologic/Psychiatric: alert, normal mood/affect, oriented x 3 Skin: normal color, warm/dry, no rash (Jennifer Webb ., EKATERINA-C) Hospital Course 71 y/o female with a history of HTN, CKD stage III, anemia, serous adenocarcinoma, COPD/asthma, chronic lower extremity edema, GERD, and RA, who presented to the ED on 10/24 with worsening SOB at rest. Pt has history of symptomatic anemia following chemotherapy treatments, at times requiring blood transfusions. Last treatment 10/22. CTA done one day prior to arrival negative for PE and pneumonia. CXR no acute disease. EKG no ischemic changes. Anemia, likely secondary to chemotherapy, with hgb of 8.7 - Admit to tele observation - Transfuse 1 unit PRBC - Stool heme occult negative in ED - Pending blood cultures - Influenza negative - Of note, patient received chemotherapy ~3 weeks ago and required 2 units PRBC at that time. -Hgb 9.3 10/24 after receiving blood COPD/asthma: - Continue Ventolin and DuoNebs PRN - Patient followed with Dr. Joyner who recommended trying Dulera x4 weeks. Patient states she saw no improvement in symptoms. She refuses to see Dr. Joyner as she was not happy with his care. - CT on 10/22- No pulmonary emboli identified. Trace right pleural effusion. No consolidation to suggest pneumonia. Mild dilatation of visualized portions of the left renal collecting system, a nonspecific finding. - CXR on 10/23- Mild elevation of the right hemidiaphragm. No evidence of focal pulmonary consolidation. CKD stage III- acquired single kidney: - Kidney function stable. Baseline creatinine around 1.5, was 1.7 upon arrival - Creatinine improved to 1.6 on 10/24 - Follows with Dr. Lo Serous carcinoma of gynecologic origin: - Follows with Dr. Louis and GERA Leija - Continue Plaquenil - Receiving chemotherapy x5 years, last treatment was on 10/22. - Pt states that she has already called Clarisa Johnson and will see her later today after discharge HTN: - Continue Hydralazine 75 mg PO QID - Continue Diltiazem 240 mg PO daily Chronic lower extremity edema, bilateral: - Currently better than baseline per patient - Continue Lasix 40 mg PO 4XWK and 20 mg PO 3XWK - Bilateral lower extremity U/S- No evidence of deep venous thrombus within the bilateral lower extremities. 10 x 3 x 4.2 cm left popliteal fluid collection. This likely reflects a large popliteal cyst. - ECHO on 06/26/16- Left ventricular systolic function is normal. No regional wall motion abnormalities noted. Ejection Fraction = 60-65%. There is mild concentric left ventricular hypertrophy. Grade I diastolic dysfunction, ( abnormal relaxation pattern). No significant valvular pathology. - Follows with cardiology, Dr. Ortez RA: - Continue Prednisone 5 mg PO PRN for pain Anxiety: - Continue Cymbalta 20 mg PO BID - Continue Xanax 0.5 mg PO PRN GERD: - Continue Zantac 150 mg PO daily GI Prophylaxis: - Maalox PRN - IV Zofran PRN - Colace and/or Milk of Mag PRN DVT prophylaxis: - RUBEN and SCDs Code Status: - LEVEL I FULL Dispo: - Lives at home with who has dementia and cannot drive. Has home health Saturday-Saturday 9-5. Pt medically stable for discharge, home health caregiver at bedside to take pt home. Total Time Spent: Greater than 30 minutes This includes examination of the patient, discharge planning, medication reconciliation, and communication with other providers. (Jennifer Webb PA-C) Discharge Instructions Please refer to the electronic Patient Visit Report (Discharge Instructions) for additional information. (Jennifer Webb PA-C) Additional Copies To Clarisa Johnson CRNP; Krzysztof Crocker MD Reviewed: Pt Seen/Exam by Me (Migdalia Maya DO) History Pt states her SOB is at baseline and LE swelling is still present, but improved. Tolerating PO without issue. Would like to go home. Denies chest pain. Agree with HPI/ROS as noted. (Migdalia Maya DO) General Appearance: WD/WN, no apparent distress Respiratory: normal breath sounds, no respiratory distress Cardiovascular: normal peripheral pulses, regular rate, rhythm Gastrointestinal: non tender, soft Extremities: non-tender, pedal edema (1+ pitting) Neurologic/Psychiatric: alert, normal mood/affect Skin Characteristics: normal color, warm/dry (Migdalia Maya DO) Assessment/Plan Agree with plan as outlined above Hb improved s/p PRBC b/l LE US neg for DVT CTA day prior to admission was neg Flu neg Ongoing chemo Advised pt to establish with new pulm provider and CM was helping her to schedule with Dr. Carcamo at pt's preference (Migdalia Maya DO)
[2016-10-25] MEDS ORDERED: FUROSEMIDE 20 MG TAB PO SCH (09:00)
[2016-11-21] MEDS ORDERED: HYDR100T12 PO (12:18)
[2017-01-05] MEDS ORDERED: SNK PO (13:01)
[2017-01-05] MEDS ORDERED: LDDP5 TD (13:01)
[2017-01-05] MEDS ORDERED: GUAI1TAB68 PO (13:01)
[2017-01-05] MEDS ORDERED: AMB5 PO (13:01)
[2017-01-05] MEDS ORDERED: DRGTP12 TD (13:01)
[2017-01-05] MEDS ORDERED: PRD20 PO (13:01)
[2017-01-05] MEDS ORDERED: ULT50X PO (13:01)
[2017-01-05] MEDS ORDERED: VLTG EXT (13:01)
== END 2016-10-24 12:41 | disposition home or self-care (01) ==
LOC: ENRESERVTM → ENRESERVDT → C.EDB 13:31 → C.2T 18:52
PROVIDERS: ADMIT Internal Medicine; ATTEND Family Medicine
DX: D64.81 Anemia due to antineoplastic chemotherapy (principal); C56.9 Malignant neoplasm of unspecified ovary; N18.3 Chronic kidney disease, stage 3 (moderate); J44.9 Chronic obstructive pulmonary disease, unspecified; I12.9 Hypertensive chronic kidney disease with stage 1 through stage 4 chronic kidney disease, or unspecified chronic kidney disease; K21.9 Gastro-esophageal reflux disease without esophagitis; M06.9 Rheumatoid arthritis, unspecified; F41.9 Anxiety disorder, unspecified; Z84.1 Family history of disorders of kidney and ureter; Z82.49 Family history of ischemic heart disease and other diseases of the circulatory system; Z90.5 Acquired absence of kidney; Z87.891 Personal history of nicotine dependence

== ENCOUNTER → 2016-11-13 | Outpatient (CLI) | payer OTHER ==
[~2016-11-13] MED LIST changes: -ALBU0.5N2 NEB; -ALBUAER INH; -ALBUAER PO; +AMB5 PO; +CALC500C70 PO; -CHOL100010 PO; +CHOL2000 PO; -CLTP PO; -DIPH25CA65 PO; +DLTCD/240 PO; +DRGTP12 TD; +GUAI1TAB68 PO; +HYDR100T12 PO; +LDDP5 TD; -MOME200A INH; +PRD20 PO; +PRVIN525X INH; +SNK PO; +TPRSR/25 PO; +ULT50X PO; +VLTG EXT; +VNTHFA/IN INH
--- NOTE | 2016-11-13 11:33 | DIAGNOSTIC IMAGING REPORT ---
ULTRASOUND KIDNEYS AND BLADDER CLINICAL HISTORY: Elevated serum creatinine. History of ovarian cancer and right nephrectomy. COMPARISON STUDY: Abdominal CT dated 06/24/2015. Abdominal ultrasound dated 06/27/2016. Chest CT dated 10/22/2016. TECHNIQUE: Real-time, grayscale, and color flow sonography of the kidneys and bladder is performed. Images are reviewed in the transverse and longitudinal planes. FINDINGS: Kidneys: The right kidney is surgically absent. No soft tissue lesion is seen in the right renal fossa. The left kidney demonstrates mild cortical atrophy and measures 12.0 x 5.6 x 4.4 cm. There is mild left-sided hydronephrosis. This is likely related to obstruction secondary to a large solid and cystic mass lesion in the left periaortic region. This measures approximately 10 x 10 x 9.5 cm. No shadowing renal calculi are identified. There is no sonographic evidence of solid left renal mass lesion. No perinephric fluid is identified. Bladder: The bladder is normal as visualized. The left jet was not seen. IMPRESSION: 1. The right kidney is surgically absent. 2. There is mild left-sided hydronephrosis, likely related to a large obstructing mass lesion. Follow-up with urology is recommended. 3. The periaortic mass lesion is solid and cystic, and was also seen on the 06/27/2016 ultrasound. This is of indeterminant etiology and could potentially represent peritoneal disease from ovarian cancer or possibly necrotic lymphadenopathy. 4. The bladder was normal as visualized. Electronically signed by: Luca Douglas M.D. 11/13/2016 11:32 AM Dictated Date/Time: 11/13/2016 11:25 AM
== END | disposition home or self-care (01) ==
LOC: C.ULTR 10:31
PROVIDERS: ATTEND Nurse Practitioner
DX: C56.9 Malignant neoplasm of unspecified ovary (principal); Z90.5 Acquired absence of kidney; N13.2 Hydronephrosis with renal and ureteral calculous obstruction

== ENCOUNTER → 2016-11-16 | Outpatient (CLI) | payer OTHER ==
[2016-11-16 17:09] LABS: BLOOD UREA NITROGEN 32 mg/dl (7-18); BUN/CREATININE RATIO 13.5 (10-20); CALCIUM 9.4 mg/dl (8.5-10.1); CARBON DIOXIDE 27 mmol/L (21-32); CHLORIDE 98 mmol/L (98-107); GLUCOSE 109 mg/dl (70-99); PHOSPHORUS 4.1 mg/dl (2.5-4.9); POTASSIUM 3.3 mmol/L (3.5-5.1); SODIUM 138 mmol/L (136-145)
== END | disposition home or self-care (01) ==
LOC: C.LAB1850 15:47
PROVIDERS: ATTEND Internal Medicine Nephrology
DX: N13.30 Unspecified hydronephrosis (principal)

== ENCOUNTER → 2016-11-20 | Outpatient (CLI) | payer OTHER | END | disposition home or self-care (01) | LOC: C.LABSPEC 10:47 | PROVIDERS: ATTEND Urology | DX: N13.30 Unspecified hydronephrosis (principal) ==

== ENCOUNTER 2016-11-22 09:29 | Day surgery (SDC) | payer OTHER ==
[2016-11-21 12:18] VITALS: BMI 23.0
[~2016-11-22] VITALS: Ht 158.8 cm; Wt 60.0 kg
[~2016-11-22 09:29] MED LIST changes: +ACETAMINOPHEN 325 MG TAB ONE; +ACETAMINOPHEN 325 MG TAB PO SCH; -AMB5 PO; -DLTCD/240 PO; -DOCU-94 PO; -DRGTP12 TD; -GUAI1TAB68 PO; -HYDR-4717 PO; -LDDP5 TD; +LEVOFLOXACIN 250MG / D5W IV SCH; -PRD/1 PO; -PRD20 PO; -SNK PO; +SODIUM CHLORIDE 0.9% 1000ML 1,000 ML IV SCH; -TPRSR/25 PO; -ULT50X PO; -VLTG EXT
[2016-11-22 09:40] VITALS: BP 146/69; PULSE 75; TEMP 36.8; O2SAT 97; BMI 23.0
[2016-11-22 10:21] VITALS: Ht 158.8 cm; Wt 60.0 kg
[2016-11-22 10:29] LABS: HEMATOCRIT 30.7 % (37-47); MEAN CORPUSCULAR HEMOGLOBIN 30.5 pg (25-34); MEAN PLATELET VOLUME 8.5 fL (7.4-10.4); PLATELET COUNT 279 K/uL (130-400); RED BLOOD COUNT 3.41 M/uL (4.2-5.4); WHITE BLOOD COUNT 6.29 K/uL (4.8-10.8)
[2016-11-22 10:32] LABS: MEAN CORPUSCULAR HGB CONC 33.9 g/dl (32-36)
[2016-11-22 10:33] VITALS: BP 146/69; PULSE 75; TEMP 36.9
[2016-11-22 10:51] LABS: BUN/CREATININE RATIO 20.4 (10-20); CALCIUM 8.4 mg/dl (8.5-10.1); CREATININE 1.9 mg/dl (0.60-1.20); POTASSIUM 3.6 mmol/L (3.5-5.1)
[2016-11-22] MEDS ORDERED: MIDAZOLAM HCL 1 MG/ML 2ML VIAL ONE (11:19)
[2016-11-22] MEDS ORDERED: FENTANYL CITRATE INJ 50 MCG/1 ML 2 ML VIAL ONE (11:20)
--- NOTE | 2016-11-22 11:40 | History & Physical Bridge Note ---
H&P Re-Evaluation Bridge Note: I have examined the patient, reviewed the History & Physical and in the interval since the performance of the History & Physical I have noted the following changes of clinical significance: No changes noted
[2016-11-22] MEDS ORDERED: PROPOFOL IV EMULSION 10 MG/ML 20 ML VIAL IV ONE (11:46)
[2016-11-22] MEDS ORDERED: LIDOCAINE HCL 2% 2 ML VIAL (20MG/ML) ONE (11:46)
[2016-11-22] MEDS ORDERED: ONDANSETRON INJ 2 MG/ML 2 ML VIAL ONE (12:31)
[2016-11-22] MEDS ORDERED: CONRAY 60% 50 ML VIAL INSTIL ONE (12:59)
--- NOTE | 2016-11-22 12:59 | DIAGNOSTIC IMAGING REPORT ---
FLUOROSCOPIC IMAGES FROM LEFT RETROGRADE EXAM CLINICAL HISTORY: Stent insertion COMPARISON STUDY: Renal ultrasound November 13, 2016. Fluoroscopy time: 33 seconds. FINDINGS: 2 fluoroscopic images from a left retrograde exam demonstrate moderate left hydronephrosis with caliber change at the left ureteropelvic junction with apparent mass effect upon the renal pelvis and proximal left ureter. The second image demonstrates placement of a ureteral stent. The proximal aspect of the stent is within the left renal pelvis. The distal aspect was not imaged. IMPRESSION: Fluoroscopic images from left retrograde exam with ureteral stent insertion. Electronically signed by: Dayton Downs M.D. 11/22/2016 12:57 PM Dictated Date/Time: 11/22/2016 12:55 PM
--- NOTE | 2016-11-22 13:13 | [facility] Post Operative Brief Note ---
Immediate Operative Summary Operative Date Nov 22, 2016. Pre-Operative Diagnosis Left Ureteral Obstruction Post-Operative Diagnosis Left Ureteral Obstruction Procedure(s) Performed Left Cystoscopy; Stent Surgeon Dr. Mallory Supervisor Edging Surgeon(s) none Estimated Blood Loss 0ml Findings proximal ureteral obstruction Specimens none per surgeon Drains 5 by 26 cm stent Disposition Recovery Room / PACU
--- NOTE | 2016-11-22 13:14 | Discharge Instructions ---
Discharge Instructions Visit Reason for Visit: Hydronephrosis Discharge Discharge Diagnosis / Problem: left hydronephrosis Discharge Goals Goal(s): Decrease discomfort, Improve function, Improve disease control Activity Recommendations Activity Limitations: resume your previous activity Anesthesia . Post Anesthesia Instructions: If you have had General Anesthesia or IV Sedation: * Do not drive today. * Resume driving when surgeon permits. * Do not make important decisions or sign legal documents today. * Call surgeon for: 1. Temperature elevations greater than 101 degrees F. 2. Uncontrollable pain. 3. Excessive bleeding. 4. Persistent nausea and vomiting. 5. Medication intolerance (nausea, vomiting or rash). * For nausea and vomiting use only clear liquids such as: tea, soda, bouillon until nausea subsides, then gradually increase diet as tolerated. * If you have any concerns or questions, call your surgeon's office. If physician is unavailable and it is an emergency, call 911 or go to the nearest emergency room. . Diet Recommendations Recommended Home Diet: resume previous diet Procedures Procedures Performed: Left Cystoscopy; Stent Medical Emergencies . Who to Call and When: Medical Emergencies: If at any time you feel your situation is an emergency, please call 911 immediately. . Non-Emergent Contact Non-Emergency issues call your: Oncologist, Urologist . . "Provider Documentation" section prepared by Roberto Mallory.
--- NOTE | 2016-11-22 13:32 | OPERATIVE REPORT ---
DATE OF OPERATION: 11/22/2016 PREOPERATIVE DIAGNOSIS: Left ureteral obstruction, solitary kidney. POSTOPERATIVE DIAGNOSIS: Same. PROCEDURES PERFORMED: Cystoscopy, left stent placement. SURGEON: Dr. Mallory. ANESTHESIA: Sedation. INDICATIONS: The patient is a 71-year-old female with longstanding cancer who has an abdominal mass that is obstructing the left ureter. She had previously a right nephrectomy, presents now with a slowly rising creatinine, for stent placement to prevent renal failure. DESCRIPTION OF THE PROCEDURE: The patient was taken to the cystoscopy suite where sedation was given. She had been given preoperative Levaquin and had Venodyne stockings placed. She was placed in dorsal lithotomy position and prepped and draped in usual sterile fashion. A 22-Angolan cystoscope was passed per urethra. There was no evidence of any abnormalities of the bladder. Left ureteral orifice was gaping, a 5-Angolan open-ended catheter was placed into this and retrograde was attempted. There was clearly obstruction in the proximal ureter, above the iliac crest which prevented contrast from easily going beyond this. For this reason, I had to pass a dual-flex guidewire through the open-ended catheter up into what I perceived to be the renal pelvis. I advanced the 5-Angolan open-ended catheter over this and then injected contrast into the renal pelvis. After this had been done, the mass appeared to be pushing the proximal ureter laterally and proximally. I initially attempted to place a 5 x 24 cm stent as the patient was quite short but because of the amount of stretching of the ureter, I had to replace this with a 5 x 26 cm stent. At the end of the procedure, patient's bladder was emptied and she was transferred to the recovery room in stable condition. There was contrast in the proximal renal pelvis which confirmed the position of the stent. There was a good curl in the renal pelvis and a good curl in the bladder. I attest to the content of the Intraoperative Record and any orders documented therein. Any exceptio ns are noted below.
--- NOTE | 2016-11-22 13:33 | Anesthesiology Progress Note ---
Anesthesia Post Op Note Date & Time Nov 22, 2016 at 13:34 Vital Signs Pain Intensity: 0 Vital Signs Past 12 Hours Date Time Temp Pulse Resp B/P Pulse Ox O2 Delivery O2 Flow Rate FiO2 11/22/16 13:26 36.8 81 17 141/66 97 Nasal Cannula 2 11/22/16 13:14 134/68 11/22/16 13:13 83 21 94 11/22/16 13:13 83 21 11/22/16 13:09 136/67 11/22/16 13:08 82 20 98 11/22/16 13:08 83 20 11/22/16 13:04 127/73 11/22/16 13:03 81 16 11/22/16 13:03 80 16 98 11/22/16 12:59 134/64 11/22/16 12:58 84 21 11/22/16 12:58 84 21 96 11/22/16 12:58 36.7 83 12 113/60 19 Nasal Cannula 2 11/22/16 10:33 36.9 75 20 146/69 11/22/16 10:21 Room Air 11/22/16 09:40 36.8 75 20 146/69 97 Room Air Notes Mental Status: alert / awake / arousable, participated in evaluation Pt Amnestic to Procedure: Yes Nausea / Vomiting: adequately controlled Pain: adequately controlled Airway Patency, RR, SpO2: stable & adequate BP & HR: stable & adequate Hydration State: stable & adequate Anesthetic Complications: no major complications apparent
[2016-11-22] MEDS ORDERED: EpHEDrine SULFATE INJ 50 MG/ML AMP IV PRN (13:45)
[2016-11-22] MEDS ORDERED: ATROPINE SULFATE 0.1 MG/ML 5ML SYR IV PRN (13:45)
[2016-11-22 13:47] VITALS: BP 138/65; PULSE 81; TEMP 36.9; O2SAT 90
[2016-11-22 14:15] VITALS: BP 167/74; PULSE 90; TEMP 36.9; O2SAT 94
[2016-11-22 14:35] VITALS: BP 164/72; PULSE 88; TEMP 36.7; O2SAT 92
[2016-11-22] MEDS ORDERED: CONRAY 30% 150ML BOTTLE INSTIL ONE (15:13)
[2017-01-05] MEDS ORDERED: LDDP5 TD (13:01)
[2017-01-05] MEDS ORDERED: SNK PO (13:01)
[2017-01-05] MEDS ORDERED: AMB5 PO (13:01)
[2017-01-05] MEDS ORDERED: PRD20 PO (13:01)
[2017-01-05] MEDS ORDERED: DRGTP12 TD (13:01)
[2017-01-05] MEDS ORDERED: GUAI1TAB68 PO (13:01)
[2017-01-05] MEDS ORDERED: ULT50X PO (13:01)
[2017-01-05] MEDS ORDERED: VLTG EXT (13:01)
== END 2016-11-22 14:43 | disposition home or self-care (01) ==
LOC: C.ACU 09:29
PROVIDERS: ATTEND Urology
DX: N20.0 Calculus of kidney (principal); N13.5 Crossing vessel and stricture of ureter without hydronephrosis

== ENCOUNTER → 2016-12-04 | Outpatient (CLI) | payer OTHER ==
[~2016-12-04] MED LIST changes: -ACETAMINOPHEN 325 MG TAB ONE; -ACETAMINOPHEN 325 MG TAB PO SCH; +AMB5 PO; +DLTCD/240 PO; +DOCU-94 PO; +DRGTP12 TD; +GUAI1TAB68 PO; +LDDP5 TD; -LEVOFLOXACIN 250MG / D5W IV SCH; +PRD20 PO; +SNK PO; -SODIUM CHLORIDE 0.9% 1000ML 1,000 ML IV SCH; +TPRSR/25 PO; +ULT50X PO; +VLTG EXT
== END | disposition home or self-care (01) ==
LOC: C.LABSPEC 16:51
PROVIDERS: ATTEND Urology
DX: N13.30 Unspecified hydronephrosis (principal); R31.29 Other microscopic hematuria

== ENCOUNTER → 2016-12-17 | Outpatient (CLI) | payer OTHER ==
--- NOTE | 2016-12-17 16:59 | DIAGNOSTIC IMAGING REPORT ---
CT SCAN OF THE ABDOMEN AND PELVIS WITHOUT CONTRAST CLINICAL HISTORY: KIDNEY DISEASE OVARIAN CARCINOMA. HISTORY OF RIGHT NEPHRECTOMY. COMPARISON STUDY: 06/24/2017 TECHNIQUE: CT scan of the abdomen and pelvis was performed from the lung bases to the proximal femurs. Images are reviewed in the axial, sagittal, and coronal planes. IV contrast was not administered for this examination. CT DOSE: 316.77 mGycm FINDINGS: Lower chest: There are right basilar atelectatic changes. There is elevation of the right hemidiaphragm. Liver: There is a 12 mm left lobe hepatic cyst. Gallbladder: Unremarkable. Spleen: Normal in size and attenuation. Pancreas: Unremarkable. Adrenal glands: Unremarkable. Kidneys: The right kidney is absent. There is mild left-sided hydronephrosis. There is residual a left-sided nephroureteral stent. Bowel: Evaluation the bowel is limited given the lack of intravenous and oral contrast. There are no transition zones indicate bowel obstruction. There is colonic diverticulosis. There are no acute peridiverticular inflammatory changes. There are postsurgical changes within the bowel. There is fecal retention. Peritoneum: There is no intraperitoneal free air or abdominal ascites. Vasculature: The abdominal aorta is normal in course and caliber. Adenopathy: There is a 13 cm retroperitoneal left para-aortic mass, likely representing metastatic adenopathy. Pelvic viscera: The uterus appears surgically absent. Skeletal structures: No destructive osseous lesions are seen. IMPRESSION: 1. Somewhat limited study given the absence of intravenous and oral contrast 2. 13 cm retroperitoneal (aortic mass, likely representing metastatic adenopathy. 3. Left-sided nephroureteral stent. Mild left-sided hydronephrosis 4. No evidence of bowel obstruction. No evidence of free air. Fecal retention. Electronically signed by: Zain Lai M.D. 12/17/2016 4:58 PM Dictated Date/Time: 12/17/2016 4:52 PM
== END | disposition home or self-care (01) ==
LOC: C.CTS 16:25
PROVIDERS: ATTEND Nurse Practitioner Family
DX: N18.3 Chronic kidney disease, stage 3 (moderate) (principal); C56.9 Malignant neoplasm of unspecified ovary; D63.8 Anemia in other chronic diseases classified elsewhere; D48.9 Neoplasm of uncertain behavior, unspecified; N28.9 Disorder of kidney and ureter, unspecified; E53.8 Deficiency of other specified B group vitamins; G58.9 Mononeuropathy, unspecified

== ENCOUNTER 2016-12-31 16:45 | Inpatient (IN) | payer OTHER ==
[~2016-12-31] VITALS: Ht 157.5 cm; Wt 64.0 kg
[~2016-12-31 16:45] MED LIST changes: -AMB5 PO; -DLTCD/240 PO; -DOCU-94 PO; -DRGTP12 TD; -GUAI1TAB68 PO; -LDDP5 TD; -PRD20 PO; -SNK PO; -TPRSR/25 PO; -ULT50X PO; -VLTG EXT
[2016-12-31] MEDS ORDERED: TPRSR/25 PO (17:18)
[2016-12-31] MEDS ORDERED: DLTCD/240 PO (17:18)
[2016-12-31] MEDS ORDERED: DOCU-94 PO (17:19)
--- NOTE | 2016-12-31 18:06 | EMERGENCY ROOM VISIT NOTE ---
History First contact with patient: 17:12 Chief Complaint: SHORTNESS OF BREATH Nursing Triage Summary: Pt was receiving chemo therapy this am. Pt became short of breath around 1030 this morning. Pt then went to cancer center to receive a blood transfusion. Pt received 1 bag out of the2 bags of blood. Pts SOB worsened. A chest xray was done and the doctor wanted the pt seen in the ED. Pt Pulse ox is 92% on room air. Pt has bilateral wheezing. Pts BP is also elevated. History of Present Illness The patient is a 71 year old female with hx of ovarian cancer on chemotherapy, Hx of ureteral obstruction due to malignancy s/p nephrectomy who presents to the Emergency Room with complaints of acute worsening of SOB. Patient went to chemotherapy this morning, followed by transfusion. Following Transfusion of 1 bag, patient became increasingly short of breath. Dr. Freedman was notified by nurse and CXR was ordered showing Rt Pleural effusion, and Rt LL opacity. Patient also reports cough <1wk and Left LE pain in addition to ongoing fatigue , weakness, lightheadedness + N/V and chronic LE Edema . She denies CP, Palpitation, syncope, fevers/chills. Review of Systems See HPI for pertinent positives & negatives. A total of 10 systems reviewed and were otherwise negative. 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 Surgical Problems: (1) No pertinent past surgical history Family History FH: cancer Hypertension Kidney disease Social History Smoking Status: Former Smoker Alcohol Use: occasionally Marital Status: Housing Status: lives with significant other Occupation Status: unemployed Current/Historical Medications Scheduled Calcium/Vitamin D (Os-Corky 500 Plus D), 2 TAB PO BID Cholecalciferol (Vitamin D3), 1 CAP PO QAM Cyanocobalamin (Vitamin B12), 1 TAB PO QAM Diltiazem Hcl (Diltiazem Cd), 240 MG PO BID Docusate Sodium (Colace), 1 CAP PO DAILY Duloxetine HCl (Cymbalta), 20 MG PO BID Furosemide (Lasix), 20 MG PO 3XWK Furosemide (Lasix), 40 MG PO 4XWK Hydralazine Hcl (Apresoline), 75 MG PO QID Hydroxychloroquine Sulfate (Plaquenil), 200 MG PO BID Metoprolol Succinate (Metoprolol Succinate ER), 12.5 MG PO QAM Multivitamin (Multivitamin), 1 TABLET PO QAM Ranitidine Hcl (Zantac), 150 MG PO QAM Scheduled PRN Albuterol Hfa (Ventolin Hfa), 2 PUFFS INH Q6H PRN for Shortness of Breath Albuterol Sulf (Albuterol Sulfate), 1 INHA INH UD PRN for Shortness of Breath Alprazolam (Xanax), 0.5 MG PO DAILY PRN for Anxiety Allergies Coded Allergies: Gemcitabine (Verified Allergy, Severe, drug induced rash, 12/31/16) Lanolin (Verified Allergy, Intermediate, RASH, 12/31/16) Latex (Verified Allergy, Intermediate, RASH, 12/31/16) Chlorhexidine (Verified Allergy, Mild, rash, 12/31/16) Penicillins (Verified Allergy, Mild, WHEN SHE WAS YOUNG, 12/31/16) Codeine (Verified Allergy, Unknown, grits teeth, 12/31/16) Lactose (Verified Allergy, Unknown, GI SYMPTOMS, 12/31/16) Adhesives (Verified Adverse Reaction, Intermediate, RASH, 12/31/16) Physical Exam Vital Signs Date Time Temp Pulse Resp B/P Pulse Ox O2 Delivery O2 Flow Rate FiO2 01/01/17 00:07 78 18 184/93 96 Nasal Cannula 2.0 12/31/16 22:43 75 12/31/16 22:12 82 20 171/110 95 Nasal Cannula 2.0 12/31/16 19:56 88 24 200/94 94 3.0 12/31/16 18:59 83 20 190/101 94 Nasal Cannula 2.0 12/31/16 17:47 92 Room Air 12/31/16 17:47 92 Room Air 12/31/16 17:00 92 Room Air 12/31/16 17:00 36.7 84 22 184/103 92 Room Air Medical Decision & Procedures Laboratory Results 12/31/16 18:30 Red Blood Count 2.82, Mean Corpuscular Volume 91.5, Mean Corpuscular Hemoglobin 31.2, Mean Corpuscular Hemoglobin Concent 34.1, Mean Platelet Volume 8.1, Neutrophils (%) (Auto) 94.3, Lymphocytes (%) (Auto) 4.4, Monocytes (%) (Auto) 0.8, Eosinophils (%) (Auto) 0.0, Basophils (%) (Auto) 0.1, Neutrophils # (Auto) 7.13, Lymphocytes # (Auto) 0.33, Monocytes # (Auto) 0.06, Eosinophils # (Auto) 0.00, Basophils # (Auto) 0.01 12/31/16 18:30 Test 12/31/16 18:30 12/31/16 18:44 White Blood Count 7.56 K/uL (4.8-10.8) Red Blood Count 2.82 M/uL (4.2-5.4) Hemoglobin 8.8 g/dL (12.0-16.0) Hematocrit 25.8 % (37-47) Mean Corpuscular Volume 91.5 fL (80-100) Mean Corpuscular Hemoglobin 31.2 pg (25-34) Mean Corpuscular Hemoglobin Concent 34.1 g/dl (32-36) Platelet Count 361 K/uL (130-400) Mean Platelet Volume 8.1 fL (7.4-10.4) Neutrophils (%) (Auto) 94.3 % Lymphocytes (%) (Auto) 4.4 % Monocytes (%) (Auto) 0.8 % Eosinophils (%) (Auto) 0.0 % Basophils (%) (Auto) 0.1 % Neutrophils # (Auto) 7.13 K/uL (1.4-6.5) Lymphocytes # (Auto) 0.33 K/uL (1.2-3.4) Monocytes # (Auto) 0.06 K/uL (0.11-0.59) Eosinophils # (Auto) 0.00 K/uL (0-0.5) Basophils # (Auto) 0.01 K/uL (0-0.2) RDW Standard Deviation 51.6 fL (36.4-46.3) RDW Coefficient of Variation 15.4 % (11.5-14.5) Immature Granulocyte % (Auto) 0.4 % Immature Granulocyte # (Auto) 0.03 K/uL (0.00-0.02) Red Blood Cell Morphology Unremarkable Prothrombin Time 10.4 SECONDS (9.0-12.0) Prothromb Time International Ratio 1.0 (0.9-1.1) Activated Partial Thromboplast Time 21.2 SECONDS (21.0-31.0) Partial Thromboplastin Ratio 0.8 Anion Gap 9.0 mmol/L (3-11) Est Creatinine Clear Calc Drug Dose 27.3 ml/min Estimated GFR () 36.7 Estimated GFR (Non- 31.6 BUN/Creatinine Ratio 17.7 (10-20) Calcium Level 8.1 mg/dl (8.5-10.1) Total Bilirubin 0.3 mg/dl (0.2-1) Aspartate Amino Transf (AST/SGOT) 34 U/L (15-37) Alanine Aminotransferase (ALT/SGPT) 33 U/L (12-78) Alkaline Phosphatase 71 U/L (45-117) Total Creatine Kinase 95 U/L (26-192) Creatine Kinase MB 2.6 ng/ml (0.5-3.6) Creatine Kinase MB Ratio 2.7 (0-3.0) Troponin I 0.039 ng/ml (0-0.045) Pro-B-Type Natriuretic Peptide 3866 pg/ml (0-900) Total Protein 6.0 gm/dl (6.4-8.2) Albumin 2.6 gm/dl (3.4-5.0) Globulin 3.4 gm/dl (2.5-4.0) Albumin/Globulin Ratio 0.8 (0.9-2) Urine Color YELLOW Urine Appearance CLOUDY (CLEAR) Urine pH 5.0 (4.5-7.5) Urine Specific [place] 1.021 (1.000-1.030) Urine Protein 2+ (NEG) Urine Glucose (UA) NEG (NEG) Urine Ketones NEG (NEG) Urine Occult Blood 2+ (NEG) Urine Nitrite NEG (NEG) Urine Bilirubin NEG (NEG) Urine Urobilinogen NEG (NEG) Urine Leukocyte Esterase SMALL (NEG) Urine WBC (Auto) 10-30 /hpf (0-5) Urine RBC (Auto) >30 /hpf (0-4) Urine Hyaline Casts (Auto) 5-10 /lpf (0-5) Urine Epithelial Cells (Auto) >30 /lpf (0-5) Urine Bacteria (Auto) NEG (NEG) Urine Renal Epithelial Cells 0-5 /lpf (0-5) Medications Administered Medications (Trade) Dose Ordered Sig/Sascha Route Start Time Stop Time Status Last Admin Dose Admin Levofloxacin (Levaquin / D5W) 750 mg NOW STAT IV 12/31/16 18:17 12/31/16 18:18 DC 12/31/16 18:57 750 MG Acetaminophen (Tylenol Tab) 1,000 mg NOW STAT PO 12/31/16 21:54 12/31/16 21:55 DC 12/31/16 22:09 1,000 MG Medical Decision Differential diagnoses includes but is not limited to pneumonia, bronchitis, COPD/Asthma exacerbation, pneumothorax, pulmonary embolism, congestive heart failure, acute coronary syndrome 71 yo F w. hx of Ovarian Cancer currently on Chemotherapy , Hx of nephrectomy secondary to ureteral obstruction, COPD/Asthma ,Anemia, Chronic LE Edema p/w acute worsening of SOB following transfusion in Cancer center, and Left LE Pain , CXR from Cancer clinic CBC H/H: 8.8/25.8 (range:7.7-12.3), WBC ct 7.56 BMP BUN 28, Cr 1.6 ProBnp 3866 ( 3302) EKG: Echo in 05/2016: * Left ventricular systolic function is normal. * No regional wall motion abnormalities noted. * Ejection Fraction = 60-65%. * There is mild concentric left ventricular hypertrophy. * Grade I diastolic dysfunction, (abnormal relaxation pattern). UA: 2+ occult blood small Leukocyte esterase, 5-10 Hyaline casts Dyspnea: -Suspected Pneumonia vs. Pleural Effusion vs. COPD exacerbation vs. PE -Given Levofloxacin 750 mg dose for cover Pneumonia -Cardiac marker negatives, Elevated BNP, so cardiomyopathy, CHF should be considered in Differential -Doppler U/S performed on LLE but was negative. CT PE study was considered but due to Cr of 1.6, it was not attempted -Patient was later admitted to inpatient service after discussion with Dr. Beck Impression Primary Impression: Acute dyspnea Departure Information Dispostion Admitted as an inpatient Referrals Krzysztof Crocker MD (PCP) Patient Instructions My [facility] Resident Tracking Resident Involvement: Resident Care Provided Care Provided: Adult ED
[2016-12-31] MEDS ORDERED: LEVAQUIN 750MG / 150ML D5W IV STA (18:17)
[2016-12-31 18:39] LABS: BASO % 0.1 %; BASO ABS # 0.01 K/uL (0-0.2); HEMATOCRIT 25.8 % (37-47); IG% 0.4 %; LYMPH % 4.4 %; LYMPH ABS # 0.33 K/uL (1.2-3.4); MEAN CELL VOLUME 91.5 fL (80-100); MEAN CORPUSCULAR HEMOGLOBIN 31.2 pg (25-34); MEAN CORPUSCULAR HGB CONC 34.1 g/dl (32-36); MEAN PLATELET VOLUME 8.1 fL (7.4-10.4); MONO % 0.8 %; NEUT % 94.3 %; PLATELET COUNT 361 K/uL (130-400); RED BLOOD COUNT 2.82 M/uL (4.2-5.4); WHITE BLOOD COUNT 7.56 K/uL (4.8-10.8)
[2016-12-31 18:49] LABS: PARTIAL THROMBOPLASTIN RATIO 0.8; PROTHROMBIN TIME (PATIENT) 10.4 SECONDS (9.0-12.0)
[2016-12-31 19:07] LABS: URINE APPEARANCE CLOUDY (CLEAR); URINE BILIRUBIN NEG (NEG); URINE COLOR YELLOW; URINE EPITHELIAL CELL AUTO >30 /lpf (0-5); URINE NITRITE NEG (NEG); URINE SPECIFIC GRAVITY 1.021 (1.000-1.030); UROBILINOGEN NEG (NEG)
[2016-12-31 19:09] LABS: MANUAL MICROSCOPIC REQUIRED? NO; REVIEW REQ? YES
[2016-12-31 19:15] LABS: COMPLETE YES
[2016-12-31 19:21] LABS: ALB/GLOB RATIO 0.8 (0.9-2); BUN/CREATININE RATIO 17.7 (10-20); CALCIUM 8.1 mg/dl (8.5-10.1); CKMB/CK RATIO 2.7 (0-3.0); CREATININE 1.6 mg/dl (0.60-1.20); POTASSIUM 4.7 mmol/L (3.5-5.1)
--- NOTE | 2016-12-31 20:39 | DIAGNOSTIC IMAGING REPORT ---
LEFT LOWER EXTREMITY VENOUS DOPPLER CLINICAL HISTORY: Left leg pain. COMPARISON STUDY: Bilateral lower extremity venous Doppler October 23, 2016. TECHNIQUE: Sonography of the deep venous system of the left lower extremity was performed. Compression and augmentation were evaluated. FINDINGS: The left common femoral, superficial femoral and popliteal veins were compressible. Augmentation was normal. Flow was shown within the deep calf vessels. Note was made of a 9.8 cm complex left popliteal fluid collection which is similar to exam of October 23, 2016. This contains low level echoes or debris. IMPRESSION: 1. No evidence of deep venous thrombus within the left lower extremity. 2. No change in the suspected complex large left popliteal cyst since ultrasound of October 23, 2016. Electronically signed by: Dayton Downs M.D. 12/31/2016 8:38 PM Dictated Date/Time: 12/31/2016 8:37 PM
[2016-12-31] MEDS ORDERED: ACETAMINOPHEN 500 MG TAB PO STA (21:54)
--- NOTE | 2016-12-31 22:41 | DIAGNOSTIC IMAGING REPORT ---
RIGHT LOWER EXTREMITY VENOUS DOPPLER CLINICAL HISTORY: Right leg swelling. COMPARISON STUDY: Bilateral lower extremity venous Doppler October 23, 2016. TECHNIQUE: Sonography of the deep venous system of the right lower extremity was performed. Compression and augmentation were evaluated. FINDINGS: The right common femoral, superficial femoral and popliteal veins were compressible. Augmentation was normal. Flow was shown within the deep calf vessels. IMPRESSION: No evidence of deep venous thrombus within the right lower extremity. Electronically signed by: Dayton Downs M.D. 12/31/2016 10:39 PM Dictated Date/Time: 12/31/2016 10:39 PM
[2017-01-01] VITALS (8 sets, daily range): BP systolic 128–164; BP diastolic 64–79; PULSE 66–78; TEMP 36.6–37; O2SAT 91–98; Ht 157.5 cm; Wt 64.0 kg
--- NOTE | 2017-01-01 00:13 | EMERGENCY ROOM VISIT NOTE ---
History Report prepared by Lavon: Debbie Galloway Under the Supervision of: Dr. Jorge Fox M.D. First contact with patient: 17:11 Chief Complaint: SHORTNESS OF BREATH Nursing Triage Summary: Pt was receiving chemo therapy this am. Pt became short of breath around 1030 this morning. Pt then went to cancer center to receive a blood transfusion. Pt received 1 bag out of the2 bags of blood. Pts SOB worsened. A chest xray was done and the doctor wanted the pt seen in the ED. Pt Pulse ox is 92% on room air. Pt has bilateral wheezing. Pts BP is also elevated. History of Present Illness The patient is a 71 year old female who presents to the Emergency Room with complaints of worsening shortness of breath that started this morning. She states that she has been experiencing shortness of breath for "quite some time. " She has ovarian cancer. Cancer has also been found in a lymph node in her neck as well as a lymph node on her left arterial artery. The patient states that she received chemotherapy this morning followed by a blood transfusion. She was supposed to receive 2 bags of blood during the transfusion, but after the first one her shortness of breath worsened. The patient received a chest x- ray at that time, which revealed a pleural effusion so they advised her to come into the ED for further evaluation. The patient states that she has received blood transfusions in the past without any complications. She is also experiencing a cough that started about one week ago. Additionally, she is experiencing fatigue and generalized weakness. She adds that her lower extremities are edematous, but that is somewhat chronic. Pt denies LOC, headache, fevers, chills, diaphoresis, visual changes, neck pain, chest pain, nausea, vomiting, abdominal pain, back pain, melena, hematochezia, urinary symptoms, numbness, lymphadenopathy, rash, or other complaints. She denies any history of blood clots and adds that she is checked for them regularly. The patient also denies any history of heart problems. Source of History: patient Onset: this morning Position: chest Quality: other (shortness of breath) Timing: worsening Associated Symptoms: + cough, + fatigue, + weakness (generalized) Note: lower extremity edema Review of Systems See HPI for pertinent positives and negatives. A total of ten systems were reviewed and were otherwise negative. 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 Surgical Problems: (1) No pertinent past surgical history Family History FH: cancer Hypertension Kidney disease Social History Smoking Status: Former Smoker Alcohol Use: occasionally Marital Status: Housing Status: lives with significant other Occupation Status: unemployed Current/Historical Medications Scheduled Calcium/Vitamin D (Os-[place]y 500 Plus D), 2 TAB PO BID Cholecalciferol (Vitamin D3), 1 CAP PO QAM Cyanocobalamin (Vitamin B12), 1 TAB PO QAM Diltiazem Hcl (Diltiazem Cd), 240 MG PO BID Docusate Sodium (Colace), 1 CAP PO DAILY Duloxetine HCl (Cymbalta), 20 MG PO BID Furosemide (Lasix), 20 MG PO 3XWK Furosemide (Lasix), 40 MG PO 4XWK Hydralazine Hcl (Apresoline), 75 MG PO QID Hydroxychloroquine Sulfate (Plaquenil), 200 MG PO BID Metoprolol Succinate (Metoprolol Succinate ER), 12.5 MG PO QAM Multivitamin (Multivitamin), 1 TABLET PO QAM Ranitidine Hcl (Zantac), 150 MG PO QAM Scheduled PRN Albuterol Hfa (Ventolin Hfa), 2 PUFFS INH Q6H PRN for Shortness of Breath Albuterol Sulf (Albuterol Sulfate), 1 INHA INH UD PRN for Shortness of Breath Alprazolam (Xanax), 0.5 MG PO DAILY PRN for Anxiety Allergies Coded Allergies: Gemcitabine (Verified Allergy, Severe, drug induced rash, 12/31/16) Lanolin (Verified Allergy, Intermediate, RASH, 12/31/16) Latex (Verified Allergy, Intermediate, RASH, 12/31/16) Chlorhexidine (Verified Allergy, Mild, rash, 12/31/16) Penicillins (Verified Allergy, Mild, WHEN SHE WAS YOUNG, 12/31/16) Codeine (Verified Allergy, Unknown, grits teeth, 12/31/16) Lactose (Verified Allergy, Unknown, GI SYMPTOMS, 12/31/16) Adhesives (Verified Adverse Reaction, Intermediate, RASH, 12/31/16) Physical Exam Vital Signs Date Time Temp Pulse Resp B/P Pulse Ox O2 Delivery O2 Flow Rate FiO2 01/01/17 00:07 78 18 184/93 96 Nasal Cannula 2.0 12/31/16 22:43 75 12/31/16 22:12 82 20 171/110 95 Nasal Cannula 2.0 12/31/16 19:56 88 24 200/94 94 3.0 12/31/16 18:59 83 20 190/101 94 Nasal Cannula 2.0 12/31/16 17:47 92 Room Air 12/31/16 17:47 92 Room Air 12/31/16 17:00 92 Room Air 12/31/16 17:00 36.7 84 22 184/103 92 Room Air Physical Exam GENERAL: Awake, alert, dyspneic-appearing, in no distress HENT: Normocephalic, atraumatic. Oropharynx unremarkable. EYES: Pale conjunctiva. Sclera non-icteric. NECK: Supple. No nuchal rigidity. FROM. No JVD. RESPIRATORY: Clear to auscultation. CARDIAC: Regular rate, normal rhythm. Extremities warm and well perfused. Pulses equal. ABDOMEN: Soft, non-distended. No tenderness to palpation. No rebound or guarding. No masses. RECTAL: Deferred. MUSCULOSKELETAL: Chest examination reveals no tenderness. The back is symmetrical on inspection without obvious abnormality. There is no CVA tenderness to palpation. No joint edema. LOWER EXTREMITIES: Calves are equal size bilaterally and non-tender. 2+ pitting edema. No discoloration. NEURO: Normal sensorium. No sensory or motor deficits noted. SKIN: No rash or jaundice noted. Medical Decision & Procedures ER Provider Diagnostic Interpretation: US results as stated below per my review and radiologist interpretation LEFT LOWER EXTREMITY VENOUS DOPPLER IMPRESSION: 1. No evidence of deep venous thrombus within the left lower extremity. 2. No change in the suspected complex large left popliteal cyst since ultrasound of October 23, 2016. Electronically signed by: Dayton Downs M.D. 12/31/2016 8:38 PM Dictated Date/Time: 12/31/2016 8:37 PM RIGHT LOWER EXTREMITY VENOUS DOPPLER IMPRESSION: No evidence of deep venous thrombus within the right lower extremity. Electronically signed by: Dayton Downs M.D. 12/31/2016 10:39 PM Dictated Date/Time: 12/31/2016 10:39 PM Laboratory Results 12/31/16 18:30 Red Blood Count 2.82, Mean Corpuscular Volume 91.5, Mean Corpuscular Hemoglobin 31.2, Mean Corpuscular Hemoglobin Concent 34.1, Mean Platelet Volume 8.1, Neutrophils (%) (Auto) 94.3, Lymphocytes (%) (Auto) 4.4, Monocytes (%) (Auto) 0.8, Eosinophils (%) (Auto) 0.0, Basophils (%) (Auto) 0.1, Neutrophils # (Auto) 7.13, Lymphocytes # (Auto) 0.33, Monocytes # (Auto) 0.06, Eosinophils # (Auto) 0.00, Basophils # (Auto) 0.01 12/31/16 18:30 Test 12/31/16 18:30 12/31/16 18:44 White Blood Count 7.56 K/uL (4.8-10.8) Red Blood Count 2.82 M/uL (4.2-5.4) Hemoglobin 8.8 g/dL (12.0-16.0) Hematocrit 25.8 % (37-47) Mean Corpuscular Volume 91.5 fL (80-100) Mean Corpuscular Hemoglobin 31.2 pg (25-34) Mean Corpuscular Hemoglobin Concent 34.1 g/dl (32-36) Platelet Count 361 K/uL (130-400) Mean Platelet Volume 8.1 fL (7.4-10.4) Neutrophils (%) (Auto) 94.3 % Lymphocytes (%) (Auto) 4.4 % Monocytes (%) (Auto) 0.8 % Eosinophils (%) (Auto) 0.0 % Basophils (%) (Auto) 0.1 % Neutrophils # (Auto) 7.13 K/uL (1.4-6.5) Lymphocytes # (Auto) 0.33 K/uL (1.2-3.4) Monocytes # (Auto) 0.06 K/uL (0.11-0.59) Eosinophils # (Auto) 0.00 K/uL (0-0.5) Basophils # (Auto) 0.01 K/uL (0-0.2) RDW Standard Deviation 51.6 fL (36.4-46.3) RDW Coefficient of Variation 15.4 % (11.5-14.5) Immature Granulocyte % (Auto) 0.4 % Immature Granulocyte # (Auto) 0.03 K/uL (0.00-0.02) Red Blood Cell Morphology Unremarkable Prothrombin Time 10.4 SECONDS (9.0-12.0) Prothromb Time International Ratio 1.0 (0.9-1.1) Activated Partial Thromboplast Time 21.2 SECONDS (21.0-31.0) Partial Thromboplastin Ratio 0.8 Anion Gap 9.0 mmol/L (3-11) Est Creatinine Clear Calc Drug Dose 27.3 ml/min Estimated GFR () 36.7 Estimated GFR (Non- 31.6 BUN/Creatinine Ratio 17.7 (10-20) Calcium Level 8.1 mg/dl (8.5-10.1) Total Bilirubin 0.3 mg/dl (0.2-1) Aspartate Amino Transf (AST/SGOT) 34 U/L (15-37) Alanine Aminotransferase (ALT/SGPT) 33 U/L (12-78) Alkaline Phosphatase 71 U/L (45-117) Total Creatine Kinase 95 U/L (26-192) Creatine Kinase MB 2.6 ng/ml (0.5-3.6) Creatine Kinase MB Ratio 2.7 (0-3.0) Troponin I 0.039 ng/ml (0-0.045) Pro-B-Type Natriuretic Peptide 3866 pg/ml (0-900) Total Protein 6.0 gm/dl (6.4-8.2) Albumin 2.6 gm/dl (3.4-5.0) Globulin 3.4 gm/dl (2.5-4.0) Albumin/Globulin Ratio 0.8 (0.9-2) Urine Color YELLOW Urine Appearance CLOUDY (CLEAR) Urine pH 5.0 (4.5-7.5) Urine Specific [place] 1.021 (1.000-1.030) Urine Protein 2+ (NEG) Urine Glucose (UA) NEG (NEG) Urine Ketones NEG (NEG) Urine Occult Blood 2+ (NEG) Urine Nitrite NEG (NEG) Urine Bilirubin NEG (NEG) Urine Urobilinogen NEG (NEG) Urine Leukocyte Esterase SMALL (NEG) Urine WBC (Auto) 10-30 /hpf (0-5) Urine RBC (Auto) >30 /hpf (0-4) Urine Hyaline Casts (Auto) 5-10 /lpf (0-5) Urine Epithelial Cells (Auto) >30 /lpf (0-5) Urine Bacteria (Auto) NEG (NEG) Urine Renal Epithelial Cells 0-5 /lpf (0-5) Laboratory results reviewed by me Medications Administered Medications (Trade) Dose Ordered Sig/Sascha Route Start Time Stop Time Status Last Admin Dose Admin Levofloxacin (Levaquin / D5W) 750 mg NOW STAT IV 12/31/16 18:17 12/31/16 18:18 DC 12/31/16 18:57 750 MG Acetaminophen (Tylenol Tab) 1,000 mg NOW STAT PO 12/31/16 21:54 12/31/16 21:55 DC 12/31/16 22:09 1,000 MG ECG Indication: SOB/dyspnea Rate (beats per minute): 79 Rhythm: sinus rhythm Findings: nonspecific-ST abn, T-wave inversion (Anterior), left axis deviation , other (low voltage QRS) ED Course 1716: The family practice medical doctor, Dr. Javi Contreras, evaluated the patient. We discussed his findings and potential treatment plans. 1749: The patient was evaluated in room B7. A complete history and physical exam was performed. 1816: Ordered Levofloxacin 750 mg IV 3: I reassessed the patient. She was resting comfortably and waiting to go to ultrasound. 1937: Dr. Contreras reevaluated the patient. She is still resting comfortably. 2146: Upon reexamination, the patient was resting comfortably. I discussed the test results and treatment plan with her. The patient will be evaluated for further management. 2153: Ordered Tylenol Tab 1000 mg PO 2211: Discussed the patient's case with Dr. Andres Yeboah [facility]. The patient will be evaluated for further treatment and disposition. Medical Decision Triage Nursing notes reviewed. The patient's presentation and history were concerning for shortness of breath. Etiologies such as pneumonia, COPD, reactive airway disease, CHF, cardiac ischemia, pulmonary embolism, pneumothorax, musculoskeletal, infections, gastrointestinal, as well as others were entertained. The patient was evaluated. She was pale. She did have a moderate anemia. She received 1 unit of blood. She has had worsening symptoms with her breathing and a cough recently. Chest imaging was concerning for pleural effusion but also possible pneumonia. She had cultures and blood work obtained. IV Levaquin was started. Ultrasound imaging was performed. She had bilateral ultrasound of the legs performed and these were negative for DVT. Her BNP is mildly elevated so that does raise some concerns about a cardiac etiology. Her creatinine is mildly elevated at 1.[address] PE study could not be performed. The patient's LFTs and cardiac markers were negative. The patient was reassessed and was doing relatively well under the circumstances. Further evaluation and management will be necessary. Consultation was made with internal medicine. The patient was evaluated in the Emergency Room for further treatment. The patient was seen and examined with Dr. Contreras, resident physician. We discussed the case and treatments ordered, reviewed the results, and determine the disposition. Please refer to the resident's note for additional details. I have been directly involved with the management and disposition as well as independently evaluated the patient as documented in this note. The chart was completed utilizing [employer] Speech voice recognition software. Grammatical errors, random word insertions, pronoun errors, and incomplete sentences are an occasional consequence of this system due to software limitations, ambient noise, and hardware issues. Any formal questions or concerns about the content, text, or information contained within the body of this dictation should be directly addressed to the physician for clarification. Consults Time Called: -- Consulting Physician: Dr. Andres MURRAY Returned Call: [phone] Discussed the patient's case with Dr. Andres MURRAY. The patient will be evaluated for further treatment and disposition. Impression Primary Impression: Pneumonia Additional Impressions: Anemia Primary cancer of ovary with widespread metastatic disease Bilateral lower extremity edema Scribe Attestation The scribe's documentation has been prepared under my direction and personally reviewed by me in its entirety. I confirm that the note above accurately reflects all work, treatment, procedures, and medical decision making performed by me. Departure Information Dispostion Being Evaluated By Hospitalist Referrals Krzysztof Crocker MD (PCP) Patient Instructions My [facility] Problem Qualifiers Primary Impression: Pneumonia Pneumonia type: due to unspecified organism Additional Impressions: Anemia Anemia type: unspecified type Qualified Codes: D64.9 - Anemia, unspecified
[2017-01-01] MEDS ORDERED: ALPRAZOLAM 0.5 MG TAB PO PRN (01:15)
[2017-01-01] MEDS ORDERED: ZOLPIDEM TARTRATE 5 MG TAB PO PRN (01:15)
[2017-01-01] MEDS ORDERED: NITROGLYCERIN 0.4 MG SL PER TAB CHARGE SL PRN (01:15)
[2017-01-01] MEDS ORDERED: VANCOMYCIN INJ 1,000 MG in SODIUM CHLORIDE 0.9% 250ML 250 ML IV STA (01:20)
[2017-01-01] MEDS ORDERED: LEVALBUTEROL 1.25MG/0.5ML NEB INH PRN (01:30)
[2017-01-01] MEDS ORDERED: IPRATROPIUM BROMIDE NEB SOLN 0.02% 2.5 ML VIAL INH PRN (01:30)
[2017-01-01] MEDS ORDERED: LEVOFLOXACIN / D5W 500 MG in PREMIXED IN D5W 100 ML IV SCH (01:30)
[2017-01-01] MEDS ORDERED: VANCOMYCIN INJ 1,350 MG in SODIUM CHLORIDE 0.9% 250ML 250 ML IV SCH (02:00)
[2017-01-01] MEDS ORDERED: LEVALBUTEROL/IPRATROPIUM NEB INH SCH (03:00)
[2017-01-01] MEDS ORDERED: INVANZ~PHARMACY CONSULT IN PROGRESS PRN (03:15)
[2017-01-01] MEDS ORDERED: LEVOFLOXACIN CONSULT ACTIVE PRN (03:15)
[2017-01-01] MEDS: IPRATROPIUM BROMIDE NEB SOLN 0.02% 2.5 ML VIAL INH SCH ×4 (03:24→19:11)
[2017-01-01] MEDS: LEVALBUTEROL 1.25MG/0.5ML NEB INH SCH ×4 (03:24→19:11)
[2017-01-01] MEDS ORDERED: TRAMADOL HCL 50 MG TAB PO STA (03:43)
[2017-01-01] MEDS ORDERED: NURSING VERBAL MED ORDER ONE (03:45)
[2017-01-01] MEDS ORDERED: TRAMADOL HCL 50 MG TAB ONE (03:49)
[2017-01-01] MEDS ORDERED: ERTAPENEM IV 1 GM in SODIUM CHLOR 0.9% AD-VAN 50ML 50 ML IV SCH (04:00)
[2017-01-01] MEDS: ERTAPENEM IV 500 MG in SODIUM CHLORIDE 0.9% 50 ML IV SCH (04:10)
[2017-01-01] MEDS: DULOXETINE HCL 20 MG CAP PO SCH ×3 (04:49→20:06)
[2017-01-01] MEDS: GUAIFENESIN 200 MG TAB PO SCH ×2 (05:20→17:15)
--- NOTE | 2017-01-01 05:28 | History and Physical ---
History & Physical Date & Time of Service: Jan 01, 2017 at 05:10 Chief Complaint: Anemia,Pneumonia Primary Care Physician: Krzysztof Crocker MD History of Present Illness Source: patient, family The patient is a 71-year-old female who reports chronic shortness of breath over the past year, [facility] for chemotherapy followed by a planned blood transfusion of 2 units packed red blood cells, but was stopped after the first unit due to worsening shortness of breath. A chest x-ray at that time revealed a pleural effusion, and the patient was advised to come to the emergency department for further evaluation. She also complains of fatigue and generalized weakness. She has tolerated transfusions in the past without incident. Past Medical/Surgical History Medical Problems: (1) Anemia Status: Chronic (2) Ovarian cancer Status: Chronic (3) Serous adenocarcinoma Status: Chronic (4) Shortness of breath Status: Chronic Family History FH: cancer Hypertension Kidney disease Social History Smoking Status: Unknown if Ever Smoked Smokeless Tobacco Use: No Alcohol Use: none Drug Use: none Marital Status: Housing status: lives with family Occupational Status: unemployed Immunizations History of Influenza Vaccine: Yes History of Tetanus Vaccine?: unknown History of Pneumococcal: Yes History of Hepatitis B Vaccine: No Multi-Drug Resistant Organisms History of MDRO: No Allergies Coded Allergies: Gemcitabine (Verified Allergy, Severe, drug induced rash, 12/31/16) Lanolin (Verified Allergy, Intermediate, RASH, 12/31/16) Latex (Verified Allergy, Intermediate, RASH, 12/31/16) Chlorhexidine (Verified Allergy, Mild, rash, 12/31/16) Penicillins (Verified Allergy, Mild, WHEN SHE WAS YOUNG, 12/31/16) Codeine (Verified Allergy, Unknown, grits teeth, 12/31/16) Lactose (Verified Allergy, Unknown, GI SYMPTOMS, 12/31/16) Adhesives (Verified Adverse Reaction, Intermediate, RASH, 12/31/16) Home Medications Scheduled Calcium/Vitamin D (Os-Corky 500 Plus D), 2 TAB PO BID Cholecalciferol (Vitamin D3), 1 CAP PO QAM Cyanocobalamin (Vitamin B12), 1 TAB PO QAM Diltiazem Hcl (Diltiazem Cd), 240 MG PO BID Docusate Sodium (Colace), 1 CAP PO DAILY Duloxetine HCl (Cymbalta), 20 MG PO BID Furosemide (Lasix), 20 MG PO 3XWK Furosemide (Lasix), 40 MG PO 4XWK Hydralazine Hcl (Apresoline), 75 MG PO QID Hydroxychloroquine Sulfate (Plaquenil), 200 MG PO BID Metoprolol Succinate (Metoprolol Succinate ER), 12.5 MG PO QAM Multivitamin (Multivitamin), 1 TABLET PO QAM Ranitidine Hcl (Zantac), 150 MG PO QAM Scheduled PRN Albuterol Hfa (Ventolin Hfa), 2 PUFFS INH Q6H PRN for Shortness of Breath Albuterol Sulf (Albuterol Sulfate), 1 INHA INH UD PRN for Shortness of Breath Alprazolam (Xanax), 0.5 MG PO DAILY PRN for Anxiety Review of Systems The patient denies chest pain, palpitations, lower extremity swelling, vision change, hearing change, sore throat, fevers, chills, sweats, weight change, nausea, vomiting, abdominal pain, pelvic pain, blood in urine or stool, dysuria , urinary frequency or urgency, lightheadedness, dizziness, headache, memory loss, rash, imbalance, focal weakness, numbness or tingling in arms or legs, arthralgias or myalgias, back or neck pain, night sweats, or allergy symptoms. The review of systems is otherwise negative other than for that already noted above, and at least 10 systems have been reviewed. Physical Exam Vital Signs Date Time Temp Pulse Resp B/P Pulse Ox O2 Delivery O2 Flow Rate FiO2 01/01/17 03:24 66 16 98 Nasal Cannula 3.0 01/01/17 02:44 36.6 74 22 164/64 97 Nasal Cannula 2.0 01/01/17 02:07 73 18 160/98 94 Nasal Cannula 2.0 01/01/17 00:07 78 18 184/93 96 Nasal Cannula 2.0 12/31/16 22:43 75 12/31/16 22:12 82 20 171/110 95 Nasal Cannula 2.0 12/31/16 19:56 88 24 200/94 94 3.0 12/31/16 18:59 83 20 190/101 94 Nasal Cannula 2.0 12/31/16 17:47 92 Room Air 12/31/16 17:47 92 Room Air 12/31/16 17:00 92 Room Air 12/31/16 17:00 36.7 84 22 184/103 92 Room Air The patient is awake, well-developed and adequately nourished, alert and oriented 3, normocephalic and atraumatic, lying in bed and is mildly short of breath while talking. HEENT--PERRL, EOMI, mucous membranes and oropharynx dry. Neck--supple, no JVD or bruits, thyroid normal, trachea midline, no adenopathy. Heart--normal S1 and S2, no extra beats, no murmurs, rubs or gallops. Lungs--decreased breath sounds at the bases bilaterally, no respiratory distress , no accessory muscle use. Abdomen--normal bowel sounds and soft, nontender and nondistended, no hernias or masses, no organomegaly. Extremities--no cyanosis, clubbing. Trace bilateral pitting edema. There are good distal pulses b/l. Dermatologic--normal skin turgor, normal color, warm and dry, no abnormal lymph nodes, no rash. Neurologic--cranial nerves II through XII grossly intact, motor and sensory examination normal. Rheumatologic--normal range of motion, nontender, muscles and joints. Psychiatric--normal affect. Diagnostics Laboratory Results Results Past 24 Hours Test 12/31/16 18:30 12/31/16 18:44 Range/Units White Blood Count 7.56 4.8-10.8 K/uL Red Blood Count 2.82 4.2-5.4 M/uL Hemoglobin 8.8 12.0-16.0 g/dL Hematocrit 25.8 37-47 % Mean Corpuscular Volume 91.5 80-100 fL Mean Corpuscular Hemoglobin 31.2 25-34 pg Mean Corpuscular Hemoglobin Concent 34.1 32-36 g/dl Platelet Count 361 130-400 K/uL Mean Platelet Volume 8.1 7.4-10.4 fL Neutrophils (%) (Auto) 94.3 % Lymphocytes (%) (Auto) 4.4 % Monocytes (%) (Auto) 0.8 % Eosinophils (%) (Auto) 0.0 % Basophils (%) (Auto) 0.1 % Neutrophils # (Auto) 7.13 1.4-6.5 K/uL Lymphocytes # (Auto) 0.33 1.2-3.4 K/uL Monocytes # (Auto) 0.06 0.11-0.59 K/uL Eosinophils # (Auto) 0.00 0-0.5 K/uL Basophils # (Auto) 0.01 0-0.2 K/uL RDW Standard Deviation 51.6 36.4-46.3 fL RDW Coefficient of Variation 15.4 11.5-14.5 % Immature Granulocyte % (Auto) 0.4 % Immature Granulocyte # (Auto) 0.03 0.00-0.02 K/uL Red Blood Cell Morphology Unremarkable Prothrombin Time 10.4 9.0-12.0 SECONDS Prothromb Time International Ratio 1.0 0.9-1.1 Activated Partial Thromboplast Time 21.2 21.0-31.0 SECONDS Partial Thromboplastin Ratio 0.8 Sodium Level 140 136-145 mmol/L Potassium Level 4.7 3.5-5.1 mmol/L Chloride Level 106 98-107 mmol/L Carbon Dioxide Level 25 21-32 mmol/L Anion Gap 9.0 3-11 mmol/L Blood Urea Nitrogen 28 7-18 mg/dl Creatinine 1.60 0.60-1.20 mg/dl Est Creatinine Clear Calc Drug Dose 27.3 ml/min Estimated GFR () 36.7 Estimated GFR (Non- 31.6 BUN/Creatinine Ratio 17.7 10-20 Random Glucose 154 70-99 mg/dl Calcium Level 8.1 8.5-10.1 mg/dl Total Bilirubin 0.3 0.2-1 mg/dl Aspartate Amino Transf (AST/SGOT) 34 15-37 U/L Alanine Aminotransferase (ALT/SGPT) 33 12-78 U/L Alkaline Phosphatase 71 45-117 U/L Total Creatine Kinase 95 26-192 U/L Creatine Kinase MB 2.6 0.5-3.6 ng/ml Creatine Kinase MB Ratio 2.7 0-3.0 Troponin I 0.039 0-0.045 ng/ml Pro-B-Type Natriuretic Peptide 3866 0-900 pg/ml Total Protein 6.0 6.4-8.2 gm/dl Albumin 2.6 3.4-5.0 gm/dl Globulin 3.4 2.5-4.0 gm/dl Albumin/Globulin Ratio 0.8 0.9-2 Urine Color YELLOW Urine Appearance CLOUDY CLEAR Urine pH 5.0 4.5-7.5 Urine Specific Warren 1.021 1.000-1.030 Urine Protein 2+ NEG Urine Glucose (UA) NEG NEG Urine Ketones NEG NEG Urine Occult Blood 2+ NEG Urine Nitrite NEG NEG Urine Bilirubin NEG NEG Urine Urobilinogen NEG NEG Urine Leukocyte Esterase SMALL NEG Urine WBC (Auto) 10-30 0-5 /hpf Urine RBC (Auto) >30 0-4 /hpf Urine Hyaline Casts (Auto) 5-10 0-5 /lpf Urine Epithelial Cells (Auto) >30 0-5 /lpf Urine Bacteria (Auto) NEG NEG Urine Renal Epithelial Cells 0-5 0-5 /lpf Microbiology Results 12/31/16 Blood Culture, Received Pending 12/31/16 Blood Culture, Received Pending Diagnostic Radiology Patient Name: ROCCO SHELTON Unit Number: [id number] Dictated: 12/31/162036 Transcribed: 12/31/162036 CELIO Printed Date/Time: [~ rep prt dt]/[~ rep prt tm] [~ rep ct labl] - [~ rep ct ivnm] [facility] [place] [address] Dictated: 12/31/162036 Transcribed: 12/31/162036 CELIO Printed Date/Time: [~ rep prt dt]/[~ rep prt tm] [~ rep ct labl] - [~ rep ct ivnm] LEFT LOWER EXTREMITY VENOUS DOPPLER CLINICAL HISTORY: Left leg pain. COMPARISON STUDY: Bilateral lower extremity venous Doppler October 23, 2016. TECHNIQUE: Sonography of the deep venous system of the left lower extremity was performed. Compression and augmentation were evaluated. FINDINGS: The left common femoral, superficial femoral and popliteal veins were compressible. Augmentation was normal. Flow was shown within the deep calf vessels. Note was made of a 9.8 cm complex left popliteal fluid collection which is similar to exam of October 23, 2016. This contains low level echoes or debris. IMPRESSION: 1. No evidence of deep venous thrombus within the left lower extremity. 2. No change in the suspected complex large left popliteal cyst since ultrasound of October 23, 2016. Electronically signed by: Dayton Downs M.D. 12/31/2016 8:38 PM Dictated Date/Time: 12/31/2016 8:37 PM The status of this report is Signed. Draft = Not yet reviewed or approved by Radiologist. Signed = Reviewed and approved by Radiologist. <AttendingPhy></AttendingPhy> <FamilyPhy>Krzysztof Crocker MD</FamilyPhy> < PrimaryPhy>Krzysztof Crocker MD</PrimaryPhy> <UnitNumber>[id number]</UnitNumber > <VisitNumber>[id number]</VisitNumber> <PatientName>ROCCO SHELTON</ PatientName> <DateOfBirth>1945</DateOfBirth> <Location>[facility]B</Location> < ServiceDate>12/31/16</ServiceDate> <MNE>ESINDI</MNE> <OrderingPhy>Javi Contreras MD</OrderingPhy> <OrderingPhyMNE>f rep ord dr li</OrderingPhyMNE> < DictatingPhyMNE>f rep dict dr li</DictatingPhyMNE> <CCListMNE>f rep ct mne</ CCListMNE> <AdmittingPhyMNE>f pt admit dr li</AdmittingPhyMNE> <AttendingPhyMNE >f pt attend dr li</AttendingPhyMNE> <ConsultingPhyMNE>f pt consult dr il</ConsultingPhyMNE> <FamilyPhyMNE>f pt fam dr li</FamilyPhyMNE> <OtherPhyMNE>f pt other dr li</OtherPhyMNE> < PrimaryPhyMNE>f pt prim care dr li</PrimaryPhyMNE> <ReferringPhyMNE>f pt referring dr li</ReferringPhyMNE> Patient Name: ROCCO SHELTON Unit Number: [id number] Dictated: 12/31/162238 Transcribed: 12/31/162238 CELIO Printed Date/Time: [~ rep prt dt]/[~ rep prt tm] [~ rep ct labl] - [~ rep ct ivnm] [facility] [place] [address] Dictated: 12/31/162238 Transcribed: 12/31/162238 CELIO Printed Date/Time: [~ rep prt dt]/[~ rep prt tm] [~ rep ct labl] - [~ rep ct ivnm] RIGHT LOWER EXTREMITY VENOUS DOPPLER CLINICAL HISTORY: Right leg swelling. COMPARISON STUDY: Bilateral lower extremity venous Doppler October 23, 2016. TECHNIQUE: Sonography of the deep venous system of the right lower extremity was performed. Compression and augmentation were evaluated. FINDINGS: The right common femoral, superficial femoral and popliteal veins were compressible. Augmentation was normal. Flow was shown within the deep calf vessels. IMPRESSION: No evidence of deep venous thrombus within the right lower extremity. Electronically signed by: Dayton Downs M.D. 12/31/2016 10:39 PM Dictated Date/Time: 12/31/2016 10:39 PM The status of this report is Signed. Draft = Not yet reviewed or approved by Radiologist. Signed = Reviewed and approved by Radiologist. <AttendingPhy></AttendingPhy> <FamilyPhy>Krzysztof Crocker MD</FamilyPhy> < PrimaryPhy>Krzysztof Crocker MD</PrimaryPhy> <UnitNumber>[id number]</UnitNumber > <VisitNumber>[id number]</VisitNumber> <PatientName>NIKITAROCCO</ PatientName> <DateOfBirth>1945</DateOfBirth> <Location>[facility]</Location> < ServiceDate>12/31/16</ServiceDate> <MNE>ESINDI</MNE> <OrderingPhy>Jorge Fox MD</OrderingPhy> <OrderingPhyMNE>f rep ord dr li</OrderingPhyMNE> < DictatingPhyMNE>f rep dict dr li</DictatingPhyMNE> <CCListMNE>f rep ct guillermo</ CCListMNE> <AdmittingPhyMNE>f pt admit dr li</AdmittingPhyMNE> <AttendingPhyMNE >f pt attend dr li</AttendingPhyMNE> <ConsultingPhyMNE>f pt consult dr li</ConsultingPhyMNE> <FamilyPhyMNE>f pt fam dr li</FamilyPhyMNE> <OtherPhyMNE>f pt other dr li</OtherPhyMNE> < PrimaryPhyMNE>f pt prim care dr li</PrimaryPhyMNE> <ReferringPhyMNE>f pt referring dr li</ReferringPhyMNE> Patient Name: ROCCO SHELTON Unit Number: [id number] Dictated: 12/31/161641 Transcribed: 12/31/161641 JA Printed Date/Time: [~ rep prt dt]/[~ rep prt tm] [~ rep ct labl] - [~ rep ct ivnm] [facility] Radiology Department [place], [place] [id number] Dictated: 12/31/161641 Transcribed: 12/31/161641 JA Printed Date/Time: [~ rep prt dt]/[~ rep prt tm] [~ rep ct labl] - [~ rep ct ivnm] [~ rep ct add3]] CHEST ONE VIEW PORTABLE CLINICAL HISTORY: Increased shortness of breath. Ovarian cancer. COMPARISON STUDY: Chest CT October 22, 2016 and chest radiograph October 23, 2016. FINDINGS: A left subclavian Vhyrtu-l-Oncq is in place. A small right pleural effusion is present. Right hilar fullness is noted. There is pulmonary vascular congestion with possible mild edema. IMPRESSION: 1. Small right pleural effusion with hazy right basilar opacity which may reflect atelectasis or consolidation. 2. Pulmonary vascular congestion with suspected mild pulmonary edema. 3. Right hilar fullness which is likely due to pulmonary vessels. Electronically signed by: Dayton Downs M.D. 12/31/2016 4:44 PM Dictated Date/Time: 12/31/2016 4:42 PM The status of this report is Signed. Draft = Not yet reviewed or approved by Radiologist. Signed = Reviewed and approved by Radiologist. <AttendingPhy>Clarisa Johnson CRNP</AttendingPhy> <FamilyPhy>Krzysztof Crocker MD </FamilyPhy> <PrimaryPhy>Krzysztof Crocker MD</PrimaryPhy> <UnitNumber> [id number]</UnitNumber> <VisitNumber>[id number]</VisitNumber> <PatientName> ROCCO SHELTON</PatientName> <DateOfBirth>1945</DateOfBirth> <Location> C.MTU</Location> <ServiceDate>12/31/16</ServiceDate> <MNE>ESINDI</MNE> < OrderingPhy>Helio Freedman P. D.O.</OrderingPhy> <OrderingPhyMNE>f rep ord dr li</OrderingPhyMNE> <DictatingPhyMNE>f rep dict dr li</DictatingPhyMNE> < CCListMNE>f rep ct michaele</CCListMNE> <AdmittingPhyMNE>f pt admit dr li</ AdmittingPhyMNE> <AttendingPhyMNE>f pt attend dr li</AttendingPhyMNE> <ConsultingPhyMNE>f pt consult dr li</ConsultingPhyMNE> <FamilyPhyMNE>f pt fam dr li</FamilyPhyMNE> <OtherPhyMNE>f pt other dr li</OtherPhyMNE> < PrimaryPhyMNE>f pt prim care dr li</PrimaryPhyMNE> <ReferringPhyMNE>f pt referring dr li</ReferringPhyMNE> EKG EKG shows normal sinus rhythm at 79 bpm, left axis deviation, incomplete right bundle branch block, premature supraventricular complexes. Impression Assessment and Plan Pneumonia involving right lower lobe, pleural effusion, hypoxia--the patient will be admitted to the oncology suite. She'll be placed on vancomycin IV per renal dosing, ertapenem 1 g IV daily, levofloxacin 500 mg IV every 24 hours, guaifenesin extended release 600 mg by mouth twice a day, Xopenex with Atrovent nebulizers to use every 6 hours while awake to 2 hours when necessary, and Pulmicort Respules 0.5 mg inhaled twice a day. Nasal cannula 2 L O2 titrated to keep pulse ox greater than or equal to 92%. Bilateral lower extremities were negative for DVT. Due to her creatinine of 1.6, the CT angiography of chest cannot be ordered to assess her pulmonary embolism, so therefore, a ventilation/perfusion scan will be ordered for the morning. Hypertension/venous insufficiency/chronic kidney disease stage III--continue metoprolol succinate ER 12.5 mg by mouth every morning, hydralazine 75 mg by mouth 4 times a day, diltiazem CD 240 mg by mouth twice a day. We will hold furosemide. Arthritis--continue hydroxychloroquine sulfate 200 mg by mouth twice a day, and duloxetine 20 mg by mouth twice a day. GERD--continue ranitidine 150 mg by mouth every morning. Vitamin B12 deficiency--continue supplement daily. Anxiety--continue alprazolam 0.5 mg by mouth daily when necessary. 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 Y/N: Yes Risk Level: Moderate Given or contraindicated: SCD's Social Service Consult Cancer Patient Under [place]
[2017-01-01] MEDS: BUDESONIDE 0.5 MG/2 ML VIAL (PULMICORT) INH SCH ×2 (06:58→19:11)
[2017-01-01] MEDS: DOCUSATE SODIUM 100 MG CAP PO SCH (08:25)
[2017-01-01] MEDS: RANITIDINE HCL 150 MG TAB PO SCH (08:25)
[2017-01-01] MEDS: CALCIUM 600MG + VIT D 400 IU TAB PO SCH ×2 (08:25→20:05)
[2017-01-01] MEDS: CYANOCOBALAMIN 500 MCG TAB (VIT B-12) PO SCH (08:25)
[2017-01-01] MEDS: DILTIAZEM HCL 240 MG CAPCR PO SCH ×2 (08:25→20:08)
[2017-01-01] MEDS: MULTIVITAMIN TAB PO SCH (08:26)
[2017-01-01] MEDS: HYDROXYCHLOROQUINE SULFATE 200 MG TAB PO SCH ×2 (08:26→20:07)
[2017-01-01] MEDS: METOPROLOL SUCC 25MG EXT REL TAB PO SCH (08:26)
[2017-01-01] MEDS: CHOLECALCIFEROL 1000 INTER.UNIT TAB PO SCH (08:28)
[2017-01-01] MEDS: ACETAMINOPHEN 325 MG TAB PO PRN (08:33)
[2017-01-01] MEDS ORDERED: VANCOMYCIN CONSULT ACTIVE PRN (09:00)
--- NOTE | 2017-01-01 09:17 | Pharmacy Progress Note ---
Pharmacy Antibiotic Consult Date of Service: Jan 01, 2017. Pharmacy Dosing Scope Pharmacy is consulted to initiate Vancomycin/Levofloxacin/Ertapenem IV dosing therapy, order appropriate labs and adjust drug dose/frequency. Subjective The patient is a 71 year old female admitted on Jan 01, 2017 at 01:18 with pleural effusion, s/p chemotherapy on 12/31, empirically starting broad spectrum antibiotics for possible pneumonia. Objective Height (Feet): 5 Height (Inches): 2.00 Weight (Kilograms): 61.800 Lab Results (24hrs): Laboratory Tests Test 12/31/16 18:30 BUN/Creatinine Ratio 17.7 Blood Urea Nitrogen 28 mg/dl Creatinine 1.60 mg/dl White Blood Count 7.56 K/uL Red Blood Count 2.82 M/uL Hemoglobin 8.8 g/dL Hematocrit 25.8 % Mean Corpuscular Volume 91.5 fL Mean Corpuscular Hemoglobin 31.2 pg Mean Corpuscular Hemoglobin Concent 34.1 g/dl Platelet Count 361 K/uL Mean Platelet Volume 8.1 fL Neutrophils (%) (Auto) 94.3 % Lymphocytes (%) (Auto) 4.4 % Monocytes (%) (Auto) 0.8 % Eosinophils (%) (Auto) 0.0 % Basophils (%) (Auto) 0.1 % Neutrophils # (Auto) 7.13 K/uL Lymphocytes # (Auto) 0.33 K/uL Monocytes # (Auto) 0.06 K/uL Eosinophils # (Auto) 0.00 K/uL Basophils # (Auto) 0.01 K/uL Micro Results: Item Value Date Time Blood Culture Received 12/31/165 Blood Pending Blood Culture Received 12/31/16 1807 Blood Pending Recent Pertinent Medications Item Value Date Time Ertapenem 500 mg/ 55 ml @ 110 mls/hr 01/01/17 0400 Sodium Chloride DAILY@0400/IV 01/01/17 0410 Vancomycin HCl 277 ml @ 125 mls/hr 01/01/17 0200 1350 mg/Sodium TODAY@0200/IV 01/01/17 0216 Chloride Levofloxacin 750 mg 12/31/16 1817 (Levaquin / D5W) NOW STAT/IV 12/31/16 1857 Levofloxacin 750 150 ml @ 100 mls/hr 01/02/17 1800 mg/Prmx Q48H/IV Assessment & Plan [age] yo female, empirically starting broad spectrum antibiotics for possible pulmonary infection, s/p chemotherapy yesterday. Patient with CrCl less than 30 ml/min thus will widen dosing interval to optimize Vancomycin clearance. Blood cultures pending. Loading dose: Vancomycin 1350mg (~22 mg/kg) IV X 1 dose then: Vancomycin 950 mg (~15.4 mg/kg) IV every 24 hours. Goal peak level estimate: between 30 - 40 mcg/mL. Goal trough level estimate: between 15 - 20 mcg/mL. Vancomycin trough level has been ordered for: 01/04/2017 prior to the 1400 hours dose. Levofloxacin renally dosed at 750mg IV q48 hours Ertapenem renally dosed at 500 mg IV q 24 hours Pharmacy will continue to follow and will adjust dose/frequency as necessary. Thank you
--- NOTE | 2017-01-01 09:54 | DIAGNOSTIC IMAGING REPORT ---
NUCLEAR MEDICINE PULMONARY VENTILATION/PERFUSION STUDY CLINICAL HISTORY: hypoxia, tachypnea COMPARISON STUDY: Chest x-ray dated 12/31/2016 FINDINGS: The patient was ventilated utilizing 33 mCi of technetium 99m DTPA aerosol. The patient was perfused lysing 5.5 mCi of technetium 99m MAA. Multiprojectional imaging was performed. There is a ventilation pattern suggesting underlying airway disease. The perfusion pattern is slightly heterogeneous. There is a matched defect within the right lower lobe which is likely secondary to the patient's elevated right hemidiaphragm and right basilar atelectasis. No moderate or large decubitus matter is are visualized. This study would be characterized as low probably for pulmonary embolism (less than 10% probability). IMPRESSION: Low probability scan. Electronically signed by: Zain Lai M.D. 01/01/2017 9:52 AM Dictated Date/Time: 01/01/2017 9:39 AM
--- NOTE | 2017-01-01 09:59 | DIAGNOSTIC IMAGING REPORT ---
CHEST 2 VIEWS ROUTINE CLINICAL HISTORY: pleural effusion COMPARISON STUDY: 12/31/2016 FINDINGS: There is elevation right hemidiaphragm. There are small bilateral pleural effusions. There is a left-sided A-Port catheter unchanged in position. There is no lobar consolidation. There is no current evidence of overt failure. There is a pigtail catheter visualized in the left upper quadrant. This is consistent with the patient's known nephroureteral stent.[ IMPRESSION: Elevation right hemidiaphragm. Small bilateral pleural effusions. Mild basilar atelectasis. Electronically signed by: Zain Lai M.D. 01/01/2017 9:58 AM Dictated Date/Time: 01/01/2017 9:57 AM
--- NOTE | 2017-01-01 12:54 | Oncology Consultation ---
Oncology/Heme Consultation Date of Consultation: Jan 01, 2017. Attending Physician: Igor Zapata D.O. Reason for Consultation: Metastatic ovarian cancer History of Present Illness Ms. Burgess is a 71 year old woman with a long-standing history of metastatic ovarian cancer. She has received multiple lines of therapy and her care has been split between our center, [facility], and [facility]. Most recently, she has been receiving paclitaxel. She was in our infusion room for treatment yesterday when she became short of breath. Dr. Freedman sent her over her for admission. She apparently responded well to bronchodilators and is feeling much better today. Unknown to us, she apparently was seen by Urology due to worsening creatinine. They ordered an abdominal CT that revealed a 13 cm RP todd mass. Her last PET/ CT, from before her paclitaxel started, measured this mass as ~8 cm, suggesting marked progression. She has also developed hydronephrosis and is considering a percutaneous nephrostomy tube. Past Medical/Surgical History Medical Problems: (1) Acute dyspnea Status: Acute (2) Anemia Status: Chronic (3) Bilateral lower extremity edema Status: Acute (4) Change in mental status Status: Acute (5) Chest pressure Status: Acute (6) Dehydration Status: Acute (7) Dyspnea Status: Acute (8) Elevated troponin Status: Acute (9) Pneumonia Status: Acute (10) Primary cancer of ovary with widespread metastatic disease Status: Acute (11) SOB (shortness of breath) Status: Acute (12) Symptomatic anemia Status: Acute Family History FH: cancer Hypertension Kidney disease Social History Smoking Status: Unknown if Ever Smoked Smokeless Tobacco Use: No Alcohol Use: none Drug Use: none Marital Status: Housing Status: lives with significant other Occupation Status: unemployed Allergies Coded Allergies: Gemcitabine (Verified Allergy, Severe, drug induced rash, 12/31/16) Lanolin (Verified Allergy, Intermediate, RASH, 12/31/16) Latex (Verified Allergy, Intermediate, RASH, 12/31/16) Chlorhexidine (Verified Allergy, Mild, rash, 12/31/16) Penicillins (Verified Allergy, Mild, WHEN SHE WAS YOUNG, 12/31/16) Codeine (Verified Allergy, Unknown, grits teeth, 12/31/16) Lactose (Verified Allergy, Unknown, GI SYMPTOMS, 12/31/16) Adhesives (Verified Adverse Reaction, Intermediate, RASH, 12/31/16) Home Medications Scheduled Calcium/Vitamin D (Os-[place] 500 Plus D), 2 TAB PO BID Cholecalciferol (Vitamin D3), 1 CAP PO QAM Cyanocobalamin (Vitamin B12), 1 TAB PO QAM Diltiazem Hcl (Diltiazem Cd), 240 MG PO BID Docusate Sodium (Colace), 1 CAP PO DAILY Duloxetine HCl (Cymbalta), 20 MG PO BID Furosemide (Lasix), 20 MG PO 3XWK Furosemide (Lasix), 40 MG PO 4XWK Hydralazine Hcl (Apresoline), 75 MG PO QID Hydroxychloroquine Sulfate (Plaquenil), 200 MG PO BID Metoprolol Succinate (Metoprolol Succinate ER), 12.5 MG PO QAM Multivitamin (Multivitamin), 1 TABLET PO QAM Ranitidine Hcl (Zantac), 150 MG PO QAM Scheduled PRN Albuterol Hfa (Ventolin Hfa), 2 PUFFS INH Q6H PRN for Shortness of Breath Albuterol Sulf (Albuterol Sulfate), 1 INHA INH UD PRN for Shortness of Breath Alprazolam (Xanax), 0.5 MG PO DAILY PRN for Anxiety Current Inpatient Medications Current Inpatient Medications Medications (Trade) Dose Ordered Sig/Sascha Route Start Time Stop Time Status Last Admin Dose Admin Acetaminophen (Tylenol Tab) 650 mg Q4H PRN PO 01/01/17 01:15 01/31/17 01:14 01/01/17 08:33 650 MG Zolpidem Tartrate (Ambien Tab) 5 mg HSZ PRN PO 01/01/17 01:15 01/31/17 01:14 Nitroglycerin (Nitrostat Tab) 0.4 mg UD PRN SL 01/01/17 01:15 01/31/17 01:14 Alprazolam (Xanax Tab) 0.5 mg DAILY PRN PO 01/01/17 01:15 01/31/17 01:14 Calcium/Vitamin D (Caltrate Plus Tab) 2 tab BID PO 01/01/17 08:00 01/31/17 08:59 01/01/17 08:25 2 TAB Diltiazem HCl (Cardizem Cd Cap) 240 mg BID PO 01/01/17 08:00 01/31/17 08:59 01/01/17 08:25 240 MG Docusate Sodium (coLACE CAP) 100 mg DAILY PO 01/01/17 08:00 01/31/17 08:59 01/01/17 08:25 100 MG Duloxetine HCl (Cymbalta Cap) 20 mg BID PO 01/01/17 08:00 01/31/17 08:59 01/01/17 09:39 20 MG Hydralazine HCl (Apresoline Tab) 75 mg QID PO 01/01/17 08:00 01/31/17 08:59 01/01/17 08:26 75 MG Hydroxychloroquine Sulfate (Plaquenil Tab) 200 mg BID PO 01/01/17 08:00 01/31/17 08:59 01/01/17 08:26 200 MG Metoprolol Succinate (Toprol Xl Tab) 12.5 mg QAM PO 01/01/17 08:00 01/31/17 08:59 01/01/17 08:26 12.5 MG Multivitamins (Multivitamin Tab) 1 tab QAM PO 01/01/17 08:00 01/31/17 08:59 01/01/17 08:26 1 TAB Ranitidine HCl (zANTac TAB) 150 mg QAM PO 01/01/17 08:00 01/31/17 08:59 01/01/17 08:25 150 MG Cholecalciferol (Vitamin D Tab) 2,000 inter.unit QAM PO 01/01/17 08:00 01/31/17 08:59 01/01/17 08:28 2,000 INTER.UNIT Cyanocobalamin (Vitamin B-12 Tab) 1,000 mcg QAM PO 01/01/17 08:00 01/31/17 08:59 01/01/17 08:25 1,000 MCG Guaifenesin (Organidin Nr Tab) 600 mg Q12H PO 01/01/17 06:00 01/31/17 05:59 01/01/17 05:20 600 MG Budesonide (Pulmicort Respules 0.5MG/ 2ML Neb Soln) 0.5 mg BIDR INH 01/01/17 08:00 01/31/17 07:59 01/01/17 06:58 0.5 MG Ondansetron HCl (Zofran Inj) 4 mg Q6H PRN IV 01/01/17 01:30 01/31/17 01:29 Ipratropium [place] (Atrovent 0.02% 0.5MG/2.5ML Neb) 0.5 mg Q6R INH 01/01/17 03:00 01/31/17 02:59 01/01/17 06:58 0.5 MG Levalbuterol (Xopenex 1.25MG/ 0.5ML Neb) 1.25 mg Q6R INH 01/01/17 03:00 01/31/17 02:59 01/01/17 06:58 1.25 MG Ipratropium [place] (Atrovent 0.02% 0.5MG/2.5ML Neb) 0.5 mg Q2H PRN INH 01/01/17 01:30 01/31/17 01:29 Levalbuterol 1.25 mg 1.25 mg Q2H PRN INH 01/01/17 01:30 01/31/17 01:29 Ertapenem/Sodium Chloride (Invanz Iv/Nss 50ml) 55 ml @ 110 mls/hr DAILY@0400 IV 01/01/17 04:00 01/08/17 03:59 01/01/17 04:10 110 MLS/HR Miscellaneous Information 1 ea UD PRN N/A 01/01/17 03:15 01/31/17 03:14 Levofloxacin 1 ea 1 ea UD PRN N/A 01/01/17 03:15 01/31/17 03:14 Levofloxacin/Prmx (Levaquin / D5W/ Premixed D5W) 150 ml @ 100 mls/hr Q48H IV 01/02/17 18:00 01/06/17 23:00 Heparin Sodium (Porcine) 5 ml 5 ml PRN PRN IV 01/01/17 05:30 01/31/17 05:29 01/01/17 11:19 5 ML Vancomycin HCl/ Sodium Chloride (Vancomycin Inj/ Nss 250ml) 269 ml @ 125 mls/hr Q30H IV 01/02/17 02:00 01/08/17 01:59 Vancomycin HCl (Consult) 1 ea UD PRN N/A 01/01/17 09:00 01/08/17 01:59 Review of Systems Constitutional: + fatigue, + weakness, No chills, No fever ENT: No trouble swallowing, No unusual epistaxis Respiratory: + shortness of breath (now resolved ), No cough, No hemoptysis Cardiovascular: No chest pain, No edema Abdomen: No nausea, No pain, No vomiting Musculoskeletal: No joint pain, No muscle pain Genitourinary - Female: No dysuria Neurologic: No numbness/tingling, No weakness Hematologic / Lymphatic: No abnormal bleeding/bruising, No night sweats Integumentary: No rash Physical Exam Date Time Temp Pulse Resp B/P Pulse Ox O2 Delivery O2 Flow Rate FiO2 01/01/17 09:30 Nasal Cannula 2.0 01/01/17 08:27 36.7 71 20 149/79 91 Nasal Cannula 2.0 01/01/17 07:02 68 16 91 Room Air 01/01/17 03:24 66 16 98 Nasal Cannula 3.0 01/01/17 02:44 36.6 74 22 164/64 97 Nasal Cannula 2.0 01/01/17 02:07 73 18 160/98 94 Nasal Cannula 2.0 01/01/17 00:07 78 18 184/93 96 Nasal Cannula 2.0 12/31/16 22:43 75 12/31/16 22:12 82 20 171/110 95 Nasal Cannula 2.0 12/31/16 19:56 88 24 200/94 94 3.0 12/31/16 18:59 83 20 190/101 94 Nasal Cannula 2.0 12/31/16 17:47 92 Room Air 12/31/16 17:47 92 Room Air 12/31/16 17:00 92 Room Air 12/31/16 17:00 36.7 84 22 184/103 92 Room Air General Appearance: no apparent distress, + thin, + pertinent finding ( chronically ill-appearing, but comfortable) Eyes: EOMI ENT: pharynx normal, + pertinent finding (mucous membranes moist) Respiratory/Chest: lungs clear, no respiratory distress Cardiovascular: regular rate, rhythm, no murmur Abdomen/GI: normal bowel sounds, non tender, soft Extremities/Musculoskelatal: no pedal edema, non-tender Neurologic/Psych: no motor/sensory deficits, alert, oriented x 3 Skin: no rash Laboratory Results Last 24 Hours Test 12/31/16 18:30 12/31/16 18:44 White Blood Count 7.56 K/uL Red Blood Count 2.82 M/uL Hemoglobin 8.8 g/dL Hematocrit 25.8 % Mean Corpuscular Volume 91.5 fL Mean Corpuscular Hemoglobin 31.2 pg Mean Corpuscular Hemoglobin Concent 34.1 g/dl Platelet Count 361 K/uL Mean Platelet Volume 8.1 fL Neutrophils (%) (Auto) 94.3 % Lymphocytes (%) (Auto) 4.4 % Monocytes (%) (Auto) 0.8 % Eosinophils (%) (Auto) 0.0 % Basophils (%) (Auto) 0.1 % Neutrophils # (Auto) 7.13 K/uL Lymphocytes # (Auto) 0.33 K/uL Monocytes # (Auto) 0.06 K/uL Eosinophils # (Auto) 0.00 K/uL Basophils # (Auto) 0.01 K/uL RDW Standard Deviation 51.6 fL RDW Coefficient of Variation 15.4 % Immature Granulocyte % (Auto) 0.4 % Immature Granulocyte # (Auto) 0.03 K/uL Red Blood Cell Morphology Unremarkable Prothrombin Time 10.4 SECONDS Prothromb Time International Ratio 1.0 Activated Partial Thromboplast Time 21.2 SECONDS Partial Thromboplastin Ratio 0.8 Sodium Level 140 mmol/L Potassium Level 4.7 mmol/L Chloride Level 106 mmol/L Carbon Dioxide Level 25 mmol/L Anion Gap 9.0 mmol/L Blood Urea Nitrogen 28 mg/dl Creatinine 1.60 mg/dl Est Creatinine Clear Calc Drug Dose 27.3 ml/min Estimated GFR () 36.7 Estimated GFR (Non- 31.6 BUN/Creatinine Ratio 17.7 Random Glucose 154 mg/dl Calcium Level 8.1 mg/dl Total Bilirubin 0.3 mg/dl Aspartate Amino Transf (AST/SGOT) 34 U/L Alanine Aminotransferase (ALT/SGPT) 33 U/L Alkaline Phosphatase 71 U/L Total Creatine Kinase 95 U/L Creatine Kinase MB 2.6 ng/ml Creatine Kinase MB Ratio 2.7 Troponin I 0.039 ng/ml Pro-B-Type Natriuretic Peptide 3866 pg/ml Total Protein 6.0 gm/dl Albumin 2.6 gm/dl Globulin 3.4 gm/dl Albumin/Globulin Ratio 0.8 Urine Color YELLOW Urine Appearance CLOUDY Urine pH 5.0 Urine Specific [place] 1.021 Urine Protein 2+ Urine Glucose (UA) NEG Urine Ketones NEG Urine Occult Blood 2+ Urine Nitrite NEG Urine Bilirubin NEG Urine Urobilinogen NEG Urine Leukocyte Esterase SMALL Urine WBC (Auto) 10-30 /hpf Urine RBC (Auto) >30 /hpf Urine Hyaline Casts (Auto) 5-10 /lpf Urine Epithelial Cells (Auto) >30 /lpf Urine Bacteria (Auto) NEG Urine Renal Epithelial Cells 0-5 /lpf Assessment & Plan Ms. Burgess was admitted with shortness of breath. Her chest x-ray shows some basilar atelectasis and small bilateral effusions. She was put empirically on broad-spectrum antibiotics and was given bronchodilators. She feels much better today. Would continue with supportive care as per primary team. However, unbeknownst to our team, she had a CT abdomen/pelvis 2 weeks ago that appears to reveal progression of her RP todd mass causing left hydronephrosis. This would suggest that she is not responding to the paclitaxel. I will review her situation with Dr. Freedman and Clarisa Johnson, who know her better. However, given that she has been on multiple prior lines of chemotherapy, I suspect hospice may be in her future. She was uncertain about this and wants to proceed with the nephrostomy regardless, to prevent uremia. However, she did express that she is not sure she wants to try another line of chemotherapy. While we sort out her other issues, I would suggest consulting palliative care to meet with her to review her options.
--- NOTE | 2017-01-01 16:46 | Palliative Care Consultation ---
Consultation Date of Consultation: Jan 01, 2017. Requesting Physician: Dr. Zapata Attending Physician: Dr. Zapata Reason for Consultation: Goals of care History of Present Illness This 71 year old female patient presented to the ED yesterday with c/o SOB which started during her Paclitaxel infusion at the cancer center. She has been battling metastatic ovarian cancer for the last 5 years. She's received treatment here at our cancer center, at [facility] in [place], and in [place]. History obtained from patient and record. About 5 years ago patient was diagnosed with ovarian cancer, underwent surgery and chemotherapy, and was in remission for some time. Unfortunately, the cancer returned and she states at that time she knew treatment was no longer curative but geared toward keeping the cancer "under control." She has done relatively well, having remarried and now caring for her senile . About a month and a half ago, she had a PET/ CT scan which showed an 8cm retroperitoneal mass. She underwent ureteral stenting as the tumor was compressing. On 12/17, she had a CT scan which showed the tumor had grown to 13cm. I have not personally seen the results of the last PET/CT, but I did read the report from the abdominal CT on 12/17. Patient's next PET was actually scheduled for tomorrow but of course will need to be rescheduled. Yesterday, she was receiving her Paclitaxel infusion and suddenly became short of breath. CXR showed basilar atelectasis and small bilateral pleural effusions-- started on antibiotics and bronchodilators which she has responded well to. Dr. Pendleton, oncologist, saw patient today and stated that hospice is likely in the patient's near future as the Paclitaxel does not seem to be working. He will touch base with patient's regular oncology team: Dr. Freedman and GERA Leija. Palliative care consulted to discuss goals of care and provide support. The patient, her daughter Lucero Pastor, and I talked in room 402. Patient state that she knows she is "near terminal." Patient explained her understanding of her current condition and states that she really does not wish to continue with any sort of chemotherapy at this point. The most important thing to her is spending quality time with her family. However, she is concerned about complications of the growing tumor, such as bowel obstruction. Her goal is for comfort and good quality of life, she'd like to move closer to her family who live in [facility], and [place]. However, she takes care of her and knows that she likely needs to have him placed at a facility. I did express my concern that planning for her future should happen very soon, she and her daughter agreed and understand. At this point, patient still plans to continue to follow up with oncology and have her next PET scan to see if the cancer has progressed and hopefully get a better understanding of prognosis. I did discuss hospice- their philosophy and services provided in the home. Patient agrees that she certainly would like hospice at some point, but would really like to move closer to family and sign on with an agency in that area. Patient then stated that she was extremely tired and was "about to break," and respectfully asked if we could continue this conversation tomorrow. She did ask that I stop in again tomorrow. Her daughter Lucero was very appreciative as well. Physical assessment not done at this time per patient's request. She did state that her abdomen was sore since she had the stent placed, but she did not feel that she needed any pain medication. Past Medical/Surgical History Medical History: Metastatic ovarian CA Serous adenocarcinoma Retroperitoneal mass Pneumonia Social History Smoking Status: Unknown if Ever Smoked History of Alcohol Use: No Drug Use: none Marital Status: Housing Status: lives with family Occupation Status: unemployed Review of Systems Constitutional: No chills, No fever Respiratory: No cough, No shortness of breath Cardiac: No chest pain Abdomen: + pain, No nausea, No vomiting Female : No problem reported Psychiatric: No depression symptoms Allergies Coded Allergies: Gemcitabine (Verified Allergy, Severe, drug induced rash, 12/31/16) Lanolin (Verified Allergy, Intermediate, RASH, 12/31/16) Latex (Verified Allergy, Intermediate, RASH, 12/31/16) Chlorhexidine (Verified Allergy, Mild, rash, 12/31/16) Penicillins (Verified Allergy, Mild, WHEN SHE WAS YOUNG, 12/31/16) Codeine (Verified Allergy, Unknown, grits teeth, 12/31/16) Lactose (Verified Allergy, Unknown, GI SYMPTOMS, 12/31/16) Adhesives (Verified Adverse Reaction, Intermediate, RASH, 12/31/16) Medications Current Inpatient Medications Medications (Trade) Dose Ordered Sig/Sascha Route Start Time Stop Time Status Last Admin Dose Admin Acetaminophen (Tylenol Tab) 650 mg Q4H PRN PO 01/01/17 01:15 01/31/17 01:14 01/01/17 08:33 650 MG Zolpidem Tartrate (Ambien Tab) 5 mg HSZ PRN PO 01/01/17 01:15 01/31/17 01:14 Nitroglycerin (Nitrostat Tab) 0.4 mg UD PRN SL 01/01/17 01:15 01/31/17 01:14 Alprazolam (Xanax Tab) 0.5 mg DAILY PRN PO 01/01/17 01:15 01/31/17 01:14 Calcium/Vitamin D (Caltrate Plus Tab) 2 tab BID PO 01/01/17 08:00 01/31/17 08:59 01/01/17 08:25 2 TAB Diltiazem HCl (Cardizem Cd Cap) 240 mg BID PO 01/01/17 08:00 01/31/17 08:59 01/01/17 08:25 240 MG Docusate Sodium (coLACE CAP) 100 mg DAILY PO 01/01/17 08:00 01/31/17 08:59 01/01/17 08:25 100 MG Duloxetine HCl (Cymbalta Cap) 20 mg BID PO 01/01/17 08:00 01/31/17 08:59 01/01/17 09:39 20 MG Hydralazine HCl (Apresoline Tab) 75 mg QID PO 01/01/17 08:00 01/31/17 08:59 01/01/17 08:26 75 MG Hydroxychloroquine Sulfate (Plaquenil Tab) 200 mg BID PO 01/01/17 08:00 01/31/17 08:59 01/01/17 08:26 200 MG Metoprolol Succinate (Toprol Xl Tab) 12.5 mg QAM PO 01/01/17 08:00 01/31/17 08:59 01/01/17 08:26 12.5 MG Multivitamins (Multivitamin Tab) 1 tab QAM PO 01/01/17 08:00 01/31/17 08:59 01/01/17 08:26 1 TAB Ranitidine HCl (zANTac TAB) 150 mg QAM PO 01/01/17 08:00 01/31/17 08:59 01/01/17 08:25 150 MG Cholecalciferol (Vitamin D Tab) 2,000 inter.unit QAM PO 01/01/17 08:00 01/31/17 08:59 01/01/17 08:28 2,000 INTER.UNIT Cyanocobalamin (Vitamin B-12 Tab) 1,000 mcg QAM PO 01/01/17 08:00 01/31/17 08:59 01/01/17 08:25 1,000 MCG Guaifenesin (Organidin Nr Tab) 600 mg Q12H PO 01/01/17 06:00 01/31/17 05:59 01/01/17 05:20 600 MG Budesonide (Pulmicort Respules 0.5MG/ 2ML Neb Soln) 0.5 mg BIDR INH 01/01/17 08:00 01/31/17 07:59 01/01/17 06:58 0.5 MG Ondansetron HCl (Zofran Inj) 4 mg Q6H PRN IV 01/01/17 01:30 01/31/17 01:29 [address] [place] (Atrovent 0.02% 0.5MG/2.5ML Neb) 0.5 mg Q6R INH 01/01/17 03:00 01/31/17 02:59 01/01/17 14:00 0.5 MG Levalbuterol (Xopenex 1.25MG/ 0.5ML Neb) 1.25 mg Q6R INH 01/01/17 03:00 01/31/17 02:59 01/01/17 14:00 1.25 MG Ipratropium [place] (Atrovent 0.02% 0.5MG/2.5ML Neb) 0.5 mg Q2H PRN INH 01/01/17 01:30 01/31/17 01:29 Levalbuterol 1.25 mg 1.25 mg Q2H PRN INH 01/01/17 01:30 01/31/17 01:29 Ertapenem/Sodium Chloride (Invanz Iv/Nss 50ml) 55 ml @ 110 mls/hr DAILY@0400 IV 01/01/17 04:00 01/08/17 03:59 01/01/17 04:10 110 MLS/HR Miscellaneous Information 1 ea UD PRN N/A 01/01/17 03:15 01/31/17 03:14 Levofloxacin 1 ea 1 ea UD PRN N/A 01/01/17 03:15 01/31/17 03:14 Levofloxacin/Prmx (Levaquin / D5W/ Premixed D5W) 150 ml @ 100 mls/hr Q48H IV 01/02/17 18:00 01/06/17 23:00 Heparin Sodium (Porcine) 5 ml 5 ml PRN PRN IV 01/01/17 05:30 01/31/17 05:29 01/01/17 11:19 5 ML Vancomycin HCl/ Sodium Chloride (Vancomycin Inj/ Nss 250ml) 269 ml @ 125 mls/hr Q30H IV 01/02/17 02:00 01/08/17 01:59 Vancomycin HCl (Consult) 1 ea UD PRN N/A 01/01/17 09:00 01/08/17 01:59 Physical Exam Date Time Temp Pulse Resp B/P Pulse Ox O2 Delivery O2 Flow Rate FiO2 01/01/17 14:17 74 16 92 Nasal Cannula 2.0 01/01/17 09:30 Nasal Cannula 2.0 01/01/17 08:27 36.7 71 20 149/79 91 Nasal Cannula 2.0 01/01/17 07:02 68 16 91 Room Air 01/01/17 03:24 66 16 98 Nasal Cannula 3.0 01/01/17 02:44 36.6 74 22 164/64 97 Nasal Cannula 2.0 01/01/17 02:07 73 18 160/98 94 Nasal Cannula 2.0 01/01/17 00:07 78 18 184/93 96 Nasal Cannula 2.0 12/31/16 22:43 75 12/31/16 22:12 82 20 171/110 95 Nasal Cannula 2.0 12/31/16 19:56 88 24 200/94 94 3.0 12/31/16 18:59 83 20 190/101 94 Nasal Cannula 2.0 12/31/16 17:47 92 Room Air 12/31/16 17:47 92 Room Air 12/31/16 17:00 92 Room Air 12/31/16 17:00 36.7 84 22 184/103 92 Room Air General Appearance: no apparent distress ENT: hearing grossly normal Neck: no JVD Respiratory: no respiratory distress, no accessory muscle use Neurologic/Psychiatric: alert, normal mood/affect, oriented x 3 Skin: + pallor Laboratory Results Last 24 Hours Test 12/31/16 18:30 12/31/16 18:44 White Blood Count 7.56 K/uL Red Blood Count 2.82 M/uL Hemoglobin 8.8 g/dL Hematocrit 25.8 % Mean Corpuscular Volume 91.5 fL Mean Corpuscular Hemoglobin 31.2 pg Mean Corpuscular Hemoglobin Concent 34.1 g/dl Platelet Count 361 K/uL Mean Platelet Volume 8.1 fL Neutrophils (%) (Auto) 94.3 % Lymphocytes (%) (Auto) 4.4 % Monocytes (%) (Auto) 0.8 % Eosinophils (%) (Auto) 0.0 % Basophils (%) (Auto) 0.1 % Neutrophils # (Auto) 7.13 K/uL Lymphocytes # (Auto) 0.33 K/uL Monocytes # (Auto) 0.06 K/uL Eosinophils # (Auto) 0.00 K/uL Basophils # (Auto) 0.01 K/uL RDW Standard Deviation 51.6 fL RDW Coefficient of Variation 15.4 % Immature Granulocyte % (Auto) 0.4 % Immature Granulocyte # (Auto) 0.03 K/uL Red Blood Cell Morphology Unremarkable Prothrombin Time 10.4 SECONDS Prothromb Time International Ratio 1.0 Activated Partial Thromboplast Time 21.2 SECONDS Partial Thromboplastin Ratio 0.8 Sodium Level 140 mmol/L Potassium Level 4.7 mmol/L Chloride Level 106 mmol/L Carbon Dioxide Level 25 mmol/L Anion Gap 9.0 mmol/L Blood Urea Nitrogen 28 mg/dl Creatinine 1.60 mg/dl Est Creatinine Clear Calc Drug Dose 27.3 ml/min Estimated GFR () 36.7 Estimated GFR (Non- 31.6 BUN/Creatinine Ratio 17.7 Random Glucose 154 mg/dl Calcium Level 8.1 mg/dl Total Bilirubin 0.3 mg/dl Aspartate Amino Transf (AST/SGOT) 34 U/L Alanine Aminotransferase (ALT/SGPT) 33 U/L Alkaline Phosphatase 71 U/L Total Creatine Kinase 95 U/L Creatine Kinase MB 2.6 ng/ml Creatine Kinase MB Ratio 2.7 Troponin I 0.039 ng/ml Pro-B-Type Natriuretic Peptide 3866 pg/ml Total Protein 6.0 gm/dl Albumin 2.6 gm/dl Globulin 3.4 gm/dl Albumin/Globulin Ratio 0.8 Urine Color YELLOW Urine Appearance CLOUDY Urine pH 5.0 Urine Specific [place] 1.021 Urine Protein 2+ Urine Glucose (UA) NEG Urine Ketones NEG Urine Occult Blood 2+ Urine Nitrite NEG Urine Bilirubin NEG Urine Urobilinogen NEG Urine Leukocyte Esterase SMALL Urine WBC (Auto) 10-30 /hpf Urine RBC (Auto) >30 /hpf Urine Hyaline Casts (Auto) 5-10 /lpf Urine Epithelial Cells (Auto) >30 /lpf Urine Bacteria (Auto) NEG Urine Renal Epithelial Cells 0-5 /lpf Assessment & Plan Problem list: SOB- resolved Ovarian cancer, metastatic Retroperitoneal mass- 13cm per most recent CT scan Pain, abdominal- declines pain medication at this time. Goals of care (Z51.5) Palliative care plan: -Goal is to be out of the hospital and be comfortable. -Patient wants to spend time with family, wants to move to [facility] to be closer to them. She first needs to find placement for her . -Eventually would like to sign on with hospice, but would like to wait until she knows what her permanent plans are as far as where she will live. -Does have some abdominal soreness but declined medication at this time-- I will revisit this. -Code status not broached yet, patient became overcome by emotion and asked that we continue this conversation tomorrow. I will gladly follow along with this very nice patient during her hospital stay.
[2017-01-02] VITALS (11 sets, daily range): BP systolic 121–145; BP diastolic 64–76; PULSE 68–82; TEMP 36.8–37.4; O2SAT 91–98
[2017-01-02] MEDS ORDERED: VANCOMYCIN INJ 950 MG in SODIUM CHLORIDE 0.9% 250ML 250 ML IV SCH (02:00)
[2017-01-02] MEDS: IPRATROPIUM BROMIDE NEB SOLN 0.02% 2.5 ML VIAL INH SCH ×4 (02:04→19:47)
[2017-01-02] MEDS: LEVALBUTEROL 1.25MG/0.5ML NEB INH SCH ×4 (02:04→19:47)
[2017-01-02] MEDS: ERTAPENEM IV 500 MG in SODIUM CHLORIDE 0.9% 50 ML IV SCH (04:47)
[2017-01-02] MEDS: GUAIFENESIN 200 MG TAB PO SCH ×2 (06:07→18:24)
[2017-01-02 06:27] LABS: BASO % 0.1 %; BASO ABS # 0.01 K/uL (0-0.2); EOS % 0.6 %; HEMATOCRIT 24.2 % (37-47); IG% 0.2 %; LYMPH % 9.5 %; LYMPH ABS # 0.81 K/uL (1.2-3.4); MEAN CELL VOLUME 89.6 fL (80-100); MEAN CORPUSCULAR HGB CONC 33.5 g/dl (32-36); MONO % 4.5 %; NEUT % 85.1 %; PLATELET COUNT 304 K/uL (130-400); WHITE BLOOD COUNT 8.53 K/uL (4.8-10.8)
[2017-01-02 06:45] LABS: PROTHROMBIN TIME (PATIENT) 10.6 SECONDS (9.0-12.0)
[2017-01-02 07:12] LABS: ALKALINE PHOSPHATASE 58 U/L (45-117); ALT/SGPT 32 U/L (12-78); AST/SGOT 21 U/L (15-37); BLOOD UREA NITROGEN 35 mg/dl (7-18); BUN/CREATININE RATIO 23.6 (10-20); CALCIUM 8.6 mg/dl (8.5-10.1); CARBON DIOXIDE 25 mmol/L (21-32); CHLORIDE 107 mmol/L (98-107); GLUCOSE 89 mg/dl (70-99); MAGNESIUM 1.9 mg/dl (1.8-2.4); POTASSIUM 3.7 mmol/L (3.5-5.1); SODIUM 142 mmol/L (136-145)
[2017-01-02 07:43] LABS: COMPLETE YES
[2017-01-02] MEDS: BUDESONIDE 0.5 MG/2 ML VIAL (PULMICORT) INH SCH ×2 (07:52→19:47)
[2017-01-02] MEDS: TRAMADOL HCL 50 MG TAB PO PRN ×2 (07:58→18:29)
[2017-01-02] MEDS: METOPROLOL SUCC 25MG EXT REL TAB PO SCH (08:00)
[2017-01-02] MEDS: HYDROXYCHLOROQUINE SULFATE 200 MG TAB PO SCH ×2 (08:00→20:37)
[2017-01-02] MEDS: DULOXETINE HCL 20 MG CAP PO SCH ×2 (08:00→20:41)
[2017-01-02] MEDS: RANITIDINE HCL 150 MG TAB PO SCH (08:00)
[2017-01-02] MEDS: DILTIAZEM HCL 240 MG CAPCR PO SCH ×2 (08:00→20:42)
[2017-01-02] MEDS: DOCUSATE SODIUM 100 MG CAP PO SCH (08:01)
--- NOTE | 2017-01-02 08:43 | Clinical Documentation Query ---
[facility] : CLINICAL DOCUMENTATION QUERY Patient is a 71 year old female admitted for the treatment and evaluation of shortness of breath associated with a RLL pneumonia and pleural effusion. Treatment includes Vancomycin, Ertapenem, and Levaquin, in addition to nebulizers and supplemental oxygen. As appropriate, consider documentation as suggested below as this directly impacts DRG assignment. Thank you. In your clinical opinion is this patient being managed for: ( X ) Pneumonia due to possible MRSA and/or gram-negative bacteria ( ) Other explanation of clinical findings (Please Explain) ( ) Unable to determine (Please Define) ( ) Need to Discuss ( ) Not Agree The medical record reflects the following clinical findings, treatment, and risk factors. Clinical Indicators: As above Treatment: Treatment includes Vancomycin, Ertapenem, and Levaquin, in addition to nebulizers and supplemental oxygen Risk Factors: Age, metastatic ovarian CA, chemotherapy, frequent hospital encounters. Please clarify and document your clinical opinion in the progress notes and discharge summary. Terms such as "probable", "suspected", "likely", "questionable", "possible", or "still to be ruled out" are acceptable. IF IN AGREEMENT, YOU MUST DOCUMENT ABOVE DIAGNOSTIC STATEMENT IN DAILY PROGRESS NOTES AND DISCHARGE SUMMARY. This document is not part of the patient's record. Thank You, Brijesh Tam RN [phone]
[2017-01-02] MEDS ORDERED: BISACODYL 5 MG TABEC PO ONE (10:00)
--- NOTE | 2017-01-02 10:52 | DIAGNOSTIC IMAGING REPORT ---
[facility] CLINICAL HISTORY: abd pain COMPARISON STUDY: CT scan dated 12/17/2016 FINDINGS: Postsurgical changes are evident. There are scattered surgical clips present. There is a left-sided double pigtail nephroureteral stent. There are no transition zones indicate bowel obstruction. There are suspected elevation right hemidiaphragm. IMPRESSION: Postsurgical changes. No evidence of bowel obstruction on this single projection. Electronically signed by: Zain Lai M.D. 01/02/2017 10:51 AM Dictated Date/Time: 01/02/2017 10:49 AM
[2017-01-02] MEDS: MULTIVITAMIN TAB PO SCH (10:55)
[2017-01-02] MEDS: CHOLECALCIFEROL 1000 INTER.UNIT TAB PO SCH (10:55)
[2017-01-02] MEDS: CALCIUM 600MG + VIT D 400 IU TAB PO SCH ×2 (10:55→20:40)
[2017-01-02] MEDS: CYANOCOBALAMIN 500 MCG TAB (VIT B-12) PO SCH (10:55)
[2017-01-02] MEDS ORDERED: GI COCKTAIL PO ONE (11:00)
[2017-01-02] MEDS ORDERED: ALUMINUM/MAGNESIUM SUSP 18 ML, LIDOCAINE HCL 2% VISCOUS SOLN 6 ML, BARCODE IDENTIFIER 1 EA PO SCH ×2 (11:15)
--- NOTE | 2017-01-02 11:16 | Progress Note ---
Subjective Date of Service: Jan 02, 2017. Subjective Pt evaluation today including: conversation w/ patient, conversation w/ family , physical exam, chart review, lab review, review of studies, review of inpatient medication list States not anxious but having difficulty with breathing at rest no fevers or chills abd discomfort more epigastric No BM reported Spoke with at length regarding discharge plans Problem List Medical Problems: (1) Acute dyspnea Status: Acute (2) Anemia Status: Chronic (3) Bilateral lower extremity edema Status: Acute (4) Change in mental status Status: Acute (5) Chest pressure Status: Acute (6) Dehydration Status: Acute (7) Dyspnea Status: Acute (8) Elevated troponin Status: Acute (9) Pneumonia Status: Acute (10) Primary cancer of ovary with widespread metastatic disease Status: Acute (11) SOB (shortness of breath) Status: Acute (12) Symptomatic anemia Status: Acute Review of Systems Constitutional: No chills, No fever Eyes: No eye pain, No worsening of vision Respiratory: No cough, No shortness of breath, No sputum, No wheezing Cardiac: No PND, No chest pain, No edema, No orthopnea Abdomen: + constipation, No nausea, No pain, No vomiting Musculoskeletal: + muscle pain, No joint pain Female : No dysuria, No urinary frequency Objective Vital Signs Date Time Temp Pulse Resp B/P Pulse Ox O2 Delivery O2 Flow Rate FiO2 01/02/17 08:04 36.8 68 16 134/71 95 Nasal Cannula 2.0 01/02/17 07:52 82 16 96 Nasal Cannula 2.0 01/02/17 04:13 36.8 74 20 122/64 95 Nasal Cannula 2.0 01/02/17 02:04 72 16 96 Nasal Cannula 2.0 01/02/17 00:22 37.2 75 18 123/70 96 Nasal Cannula 2.0 01/02/17 00:10 Nasal Cannula 2.0 01/01/17 20:06 37.0 78 20 128/68 95 Nasal Cannula 2.0 01/01/17 19:12 71 16 96 Nasal Cannula 2.0 01/01/17 16:30 Room Air 2.0 01/01/17 16:26 36.6 77 18 148/74 96 Room Air 01/01/17 14:17 74 16 92 Nasal Cannula 2.0 Physical Exam General Appearance: WD/WN, no apparent distress Eyes: PERRL, EOMI Respiratory/Chest: lungs clear, normal breath sounds Cardiovascular: no edema, no gallop Abdomen: non tender, soft Neurologic/Psychiatric: alert, normal mood/affect, oriented x 3 Laboratory Results Last 24 Hours Test 01/02/17 06:10 White Blood Count 8.53 K/uL Red Blood Count 2.70 M/uL Hemoglobin 8.1 g/dL Hematocrit 24.2 % Mean Corpuscular Volume 89.6 fL Mean Corpuscular Hemoglobin 30.0 pg Mean Corpuscular Hemoglobin Concent 33.5 g/dl Platelet Count 304 K/uL Mean Platelet Volume 8.0 fL Neutrophils (%) (Auto) 85.1 % Lymphocytes (%) (Auto) 9.5 % Monocytes (%) (Auto) 4.5 % Eosinophils (%) (Auto) 0.6 % Basophils (%) (Auto) 0.1 % Neutrophils # (Auto) 7.26 K/uL Lymphocytes # (Auto) 0.81 K/uL Monocytes # (Auto) 0.38 K/uL Eosinophils # (Auto) 0.05 K/uL Basophils # (Auto) 0.01 K/uL RDW Standard Deviation 51.9 fL RDW Coefficient of Variation 16.2 % Immature Granulocyte % (Auto) 0.2 % Immature Granulocyte # (Auto) 0.02 K/uL Red Blood Cell Morphology Unremarkable Prothrombin Time 10.6 SECONDS Prothromb Time International Ratio 1.0 Activated Partial Thromboplast Time 25.9 SECONDS Partial Thromboplastin Ratio 1.0 Sodium Level 142 mmol/L Potassium Level 3.7 mmol/L Chloride Level 107 mmol/L Carbon Dioxide Level 25 mmol/L Anion Gap 10.0 mmol/L Blood Urea Nitrogen 35 mg/dl Creatinine 1.50 mg/dl Est Creatinine Clear Calc Drug Dose 28.9 ml/min Estimated GFR () 39.6 Estimated GFR (Non- 34.2 BUN/Creatinine Ratio 23.6 Random Glucose 89 mg/dl Calcium Level 8.6 mg/dl Magnesium Level 1.9 mg/dl Total Bilirubin 0.3 mg/dl Direct Bilirubin < 0.1 mg/dl Aspartate Amino Transf (AST/SGOT) 21 U/L Alanine Aminotransferase (ALT/SGPT) 32 U/L Alkaline Phosphatase 58 U/L Total Protein 5.3 gm/dl Albumin 2.5 gm/dl Assessment and Plan Shortness of breath - No evidence of PNA on CXR, vanc ertapenem and levaquin discontinued, cont xopenex with atrovent nebulizers to use every 6 hours while awake to 2 hours when necessary, and pulmicort Respules 0.5 mg inhaled twice a day. Nasal cannula 2 L O2 titrated to keep pulse ox greater than or equal to 92 %. Bilateral lower extremities were negative for DVT. Due to her creatinine of 1.6, the CT angiography of chest cannot be ordered to assess her pulmonary embolism, so therefore, a ventilation/perfusion scan was low probability for DVT Abdominal CT that revealed a 13 cm RP todd mass. Her last PET/CT, from before her paclitaxel started, measured this mass as ~8 cm, suggesting marked progression. Failed numerous treatments in the past. Palliative care consulted, pt remins full code Hypertension/venous insufficiency/chronic kidney disease stage III--continue metoprolol succinate ER 12.5 mg by mouth every morning, hydralazine 75 mg by mouth 4 times a day, diltiazem CD 240 mg by mouth twice a day. We will hold furosemide. Arthritis--continue hydroxychloroquine sulfate 200 mg by mouth twice a day, and duloxetine 20 mg by mouth twice a day. GERD--continue ranitidine 150 mg by mouth every morning. Vitamin B12 deficiency--continue supplement daily. Anxiety--continue alprazolam 0.5 mg by mouth daily when necessary. Pt is FULL CODE
[2017-01-02] MEDS: LIDODERM (LIDOCAINE) PATCH 5% TD SCH (11:40)
[2017-01-02] MEDS: ACETAMINOPHEN 325 MG TAB PO PRN (11:43)
[2017-01-02] MEDS: ONDANSETRON INJ 2 MG/ML 2 ML VIAL IV PRN (13:01)
[2017-01-02] MEDS ORDERED: LEVOFLOXACIN 750MG / D5W IV SCH (18:00)
[2017-01-02] MEDS ORDERED: NURSING VERBAL MED ORDER ONE (20:30)
[2017-01-02] MEDS ORDERED: KETOROLAC TROMETHAMINE 15 MG/ML VIAL IV. PRN (20:30)
[2017-01-02] MEDS ORDERED: KETOROLAC TROMETHAMINE 30 MG/ML VIAL ONE (20:31)
[2017-01-02] MEDS: BENZONATATE 100MG CAP PO PRN (20:47)
[2017-01-03] VITALS (10 sets, daily range): BP systolic 109–127; BP diastolic 57–74; PULSE 71–84; TEMP 36.7–37.5; O2SAT 90–95
[2017-01-03] MEDS: IPRATROPIUM BROMIDE NEB SOLN 0.02% 2.5 ML VIAL INH SCH ×4 (02:05→19:05)
[2017-01-03] MEDS: LEVALBUTEROL 1.25MG/0.5ML NEB INH SCH ×4 (02:05→19:05)
[2017-01-03] MEDS ORDERED: COUGH DROP (SUGAR FREE) LOZ 24 LOZ/1 BOX ONE (03:45)
[2017-01-03] MEDS ORDERED: NURSING DECISION MEDICATION ORDER SCH (03:45)
[2017-01-03] MEDS ORDERED: COUGH DROP (SUGAR FREE) LOZ 24 LOZ/1 BOX PO PRN (04:15)
[2017-01-03] MEDS: GUAIFENESIN 200 MG TAB PO SCH ×2 (06:26→17:20)
[2017-01-03] MEDS: DULOXETINE HCL 20 MG CAP PO SCH ×2 (07:40→19:39)
[2017-01-03] MEDS: HYDROXYCHLOROQUINE SULFATE 200 MG TAB PO SCH ×2 (07:40→19:39)
[2017-01-03] MEDS: DILTIAZEM HCL 240 MG CAPCR PO SCH ×2 (07:40→19:39)
[2017-01-03] MEDS: RANITIDINE HCL 150 MG TAB PO SCH (07:40)
[2017-01-03] MEDS: BENZONATATE 100MG CAP PO PRN (07:40)
[2017-01-03] MEDS: DOCUSATE SODIUM 100 MG CAP PO SCH (07:40)
[2017-01-03] MEDS: BUDESONIDE 0.5 MG/2 ML VIAL (PULMICORT) INH SCH ×2 (07:40→19:05)
[2017-01-03] MEDS: METOPROLOL SUCC 25MG EXT REL TAB PO SCH (07:40)
[2017-01-03] MEDS: TRAMADOL HCL 50 MG TAB PO PRN ×3 (07:55→19:38)
[2017-01-03] MEDS: CALCIUM 600MG + VIT D 400 IU TAB PO SCH ×2 (08:00→19:38)
[2017-01-03] MEDS: CHOLECALCIFEROL 1000 INTER.UNIT TAB PO SCH (08:00)
[2017-01-03] MEDS: MULTIVITAMIN TAB PO SCH (08:00)
[2017-01-03] MEDS: CYANOCOBALAMIN 500 MCG TAB (VIT B-12) PO SCH (08:00)
[2017-01-03] MEDS: LIDODERM (LIDOCAINE) PATCH 5% TD SCH (08:01)
[2017-01-03 10:31] LABS: MEAN CELL VOLUME 91.9 fL (80-100); MEAN CORPUSCULAR HEMOGLOBIN 31.1 pg (25-34); MEAN CORPUSCULAR HGB CONC 33.8 g/dl (32-36); MEAN PLATELET VOLUME 7.7 fL (7.4-10.4); PLATELET COUNT 292 K/uL (130-400); RED BLOOD COUNT 2.83 M/uL (4.2-5.4); WHITE BLOOD COUNT 12.84 K/uL (4.8-10.8)
[2017-01-03 10:41] LABS: PARTIAL THROMBOPLASTIN RATIO 1.6; PROTHROMBIN TIME (PATIENT) 10.7 SECONDS (9.0-12.0)
[2017-01-03 11:00] LABS: BUN/CREATININE RATIO 23.8 (10-20); CALCIUM 9.2 mg/dl (8.5-10.1); CREATININE 1.5 mg/dl (0.60-1.20); POTASSIUM 4.2 mmol/L (3.5-5.1)
[2017-01-03 11:08] LABS: BASO % 0.1 %; BASO ABS # 0.01 K/uL (0-0.2); COMPLETE YES; EOS % 1.1 %; IG% 0.2 %; LYMPH % 3.5 %; LYMPH ABS # 0.45 K/uL (1.2-3.4); MONO % 1.6 %; NEUT % 93.5 %
--- NOTE | 2017-01-03 13:42 | Hematology/Oncology Prog Note ---
Hematology/Onc Progress Note Date of Service Jan 03, 2017. Diagnoses Metastatic ovarian cancer Medications Medications Administered Medications (Trade) Dose Ordered Sig/Sascha Route Start Time Stop Time Status Last Admin Dose Admin Levofloxacin (Levaquin / D5W) 750 mg NOW STAT IV 12/31/16 18:17 12/31/16 18:18 DC 12/31/16 18:57 750 MG Acetaminophen (Tylenol Tab) 1,000 mg NOW STAT PO 12/31/16 21:54 12/31/16 21:55 DC 12/31/16 22:09 1,000 MG Acetaminophen (Tylenol Tab) 650 mg Q4H PRN PO 01/01/17 01:15 01/31/17 01:14 01/02/17 11:43 650 MG Calcium/Vitamin D (Caltrate Plus Tab) 2 tab BID PO 01/01/17 08:00 01/31/17 08:59 01/02/17 20:40 2 TAB Diltiazem HCl (Cardizem Cd Cap) 240 mg BID PO 01/01/17 08:00 01/31/17 08:59 01/03/17 07:40 240 MG Docusate Sodium (coLACE CAP) 100 mg DAILY PO 01/01/17 08:00 01/31/17 08:59 01/03/17 07:40 100 MG Duloxetine HCl (Cymbalta Cap) 20 mg BID PO 01/01/17 08:00 01/31/17 08:59 01/03/17 07:40 20 MG Hydralazine HCl (Apresoline Tab) 75 mg QID PO 01/01/17 08:00 01/31/17 08:59 01/03/17 12:25 75 MG Hydroxychloroquine Sulfate (Plaquenil Tab) 200 mg BID PO 01/01/17 08:00 01/31/17 08:59 01/03/17 07:40 200 MG Metoprolol Succinate (Toprol Xl Tab) 12.5 mg QAM PO 01/01/17 08:00 01/31/17 08:59 01/03/17 07:40 12.5 MG Multivitamins (Multivitamin Tab) 1 tab QAM PO 01/01/17 08:00 01/31/17 08:59 01/01/17 08:26 1 TAB Ranitidine HCl (zANTac TAB) 150 mg QAM PO 01/01/17 08:00 01/31/17 08:59 01/03/17 07:40 150 MG Cholecalciferol (Vitamin D Tab) 2,000 inter.unit QAM PO 01/01/17 08:00 01/31/17 08:59 01/01/17 08:28 2,000 INTER.UNIT Cyanocobalamin (Vitamin B-12 Tab) 1,000 mcg QAM PO 01/01/17 08:00 01/31/17 08:59 01/01/17 08:25 1,000 MCG Guaifenesin (Organidin Nr Tab) 600 mg Q12H PO 01/01/17 06:00 01/31/17 05:59 01/03/17 06:26 600 MG Budesonide (Pulmicort Respules 0.5MG/ 2ML Neb Soln) 0.5 mg BIDR INH 01/01/17 08:00 01/31/17 07:59 01/03/17 07:40 0.5 MG Ondansetron HCl (Zofran Inj) 4 mg Q6H PRN IV 01/01/17 01:30 01/31/17 01:29 01/02/17 13:01 4 MG Ipratropium Dike (Atrovent 0.02% 0.5MG/2.5ML Neb) 0.5 mg Q6R INH 01/01/17 03:00 01/31/17 02:59 01/03/17 07:40 0.5 MG Levalbuterol 1.25 mg 1.25 mg Q6R INH 01/01/17 03:00 01/31/17 02:59 01/03/17 07:40 1.25 MG Vancomycin HCl 1350 mg/Sodium Chloride 277 ml @ 125 mls/hr TODAY@0200 IV 01/01/17 02:00 01/01/17 04:13 DC 01/01/17 02:16 125 MLS/HR Ertapenem/Sodium Chloride (Invanz Iv/Nss 50ml) 55 ml @ 110 mls/hr DAILY@0400 IV 01/01/17 04:00 01/02/17 11:10 DC 01/02/17 04:47 110 MLS/HR Tramadol HCl (Ultram Tab) 25 mg NOW STAT PO 01/01/17 03:43 01/01/17 03:44 DC 01/01/17 03:46 25 MG Heparin Sodium (Porcine) 5 ml 5 ml PRN PRN IV 01/01/17 05:30 01/31/17 05:29 01/03/17 10:24 5 ML Vancomycin HCl/ Sodium Chloride (Vancomycin Inj/ Nss 250ml) 269 ml @ 125 mls/hr Q30H IV 01/02/17 02:00 01/02/17 11:10 DC 01/02/17 01:49 125 MLS/HR Tramadol HCl (Ultram Tab) 50 mg Q4H PRN PO 01/02/17 08:00 02/01/17 07:59 01/03/17 12:37 50 MG Lidocaine (Lidoderm Patch 5%) 1 patch QAM TD 01/02/17 10:30 02/01/17 10:29 01/03/17 08:01 1 PATCH Miscellaneous 1 ea DAILY@21 N/A 01/02/17 21:00 02/01/17 20:59 01/02/17 20:41 1 EA Al Hydroxide/Mg Hydroxide/ Lidocaine HCl/ Barcode (Maalox Susp/ Viscous Lidocaine 2% Soln) TODAY@1115 PO 01/02/17 11:15 01/02/17 12:00 DC 01/02/17 11:41 30 ML Benzonatate (Tessalon Perles Cap) 100 mg Q4H PRN PO 01/02/17 20:30 02/01/17 20:29 01/03/17 07:40 100 MG Ketorolac Tromethamine (Toradol Inj) 30 mg STK-MED ONCE .ROUTE 01/02/17 20:31 01/02/17 20:32 DC 01/02/17 20:28 30 MG Menthol (Nice Lesley) 24 lesley STK-MED ONCE .ROUTE 01/03/17 03:45 01/03/17 03:46 DC 01/03/17 03:41 24 LESLEY Subjective Ms. Burgess is doing better. She met with palliative care and has a plan to hopefully move to the [facility] area with her daughter. She will likely plan to pursue hospice care there. Her pain is modest and she otherwise feels much better than admission. She is still considering a percutaneous nephrostomy tube. Review of Systems: Constitutional: No chills, No fever Eyes: No worsening of vision Respiratory: No cough, No shortness of breath Cardiovascular: No chest pain, No edema Abdomen: + constipation, No nausea, No pain, No vomiting Musculoskeletal: + muscle pain, No joint pain Neurologic: No numbness/tingling, No weakness Heme: No abnormal bleeding/bruising Vital Signs Vital Signs Past 12 Hours Date Time Temp Pulse Resp B/P Pulse Ox O2 Delivery O2 Flow Rate FiO2 01/03/17 11:05 36.9 77 20 127/74 95 3.0 01/03/17 08:59 Nasal Cannula 2.0 01/03/17 07:41 79 16 90 Nasal Cannula 2.0 01/03/17 07:19 36.9 76 18 122/72 93 01/03/17 04:07 37.1 77 20 109/64 90 Nasal Cannula 2.0 01/03/17 02:05 80 16 92 Nasal Cannula 2.0 Physical Exam Constitutional: Level of Distress: NAD, chronically ill Psychiatric: Mental Status: active & alert Orientation: oriented except where noted Lungs: Auscuitation: CTA except as noted Cardiovascular: Heart Auscultation: RRR, no murmurs Abdomen: Inspection & Palpation: soft, no tenderness, guarding & rebound Extremities: no edema Laboratory Last 24 Hours Test 01/03/17 10:20 White Blood Count 12.84 K/uL Red Blood Count 2.83 M/uL Hemoglobin 8.8 g/dL Hematocrit 26.0 % Mean Corpuscular Volume 91.9 fL Mean Corpuscular Hemoglobin 31.1 pg Mean Corpuscular Hemoglobin Concent 33.8 g/dl Platelet Count 292 K/uL Mean Platelet Volume 7.7 fL Neutrophils (%) (Auto) 93.5 % Lymphocytes (%) (Auto) 3.5 % Monocytes (%) (Auto) 1.6 % Eosinophils (%) (Auto) 1.1 % Basophils (%) (Auto) 0.1 % Neutrophils # (Auto) 12.00 K/uL Lymphocytes # (Auto) 0.45 K/uL Monocytes # (Auto) 0.21 K/uL Eosinophils # (Auto) 0.14 K/uL Basophils # (Auto) 0.01 K/uL RDW Standard Deviation 53.7 fL RDW Coefficient of Variation 16.0 % Immature Granulocyte % (Auto) 0.2 % Immature Granulocyte # (Auto) 0.03 K/uL Red Blood Cell Morphology Unremarkable Prothrombin Time 10.7 SECONDS Prothromb Time International Ratio 1.0 Activated Partial Thromboplast Time 42.7 SECONDS Partial Thromboplastin Ratio 1.6 Sodium Level 140 mmol/L Potassium Level 4.2 mmol/L Chloride Level 106 mmol/L Carbon Dioxide Level 27 mmol/L Anion Gap 7.0 mmol/L Blood Urea Nitrogen 36 mg/dl Creatinine 1.50 mg/dl Est Creatinine Clear Calc Drug Dose 28.9 ml/min Estimated GFR () 39.6 Estimated GFR (Non- 34.2 BUN/Creatinine Ratio 23.8 Random Glucose 99 mg/dl Calcium Level 9.2 mg/dl Magnesium Level 2.0 mg/dl Total Bilirubin 0.6 mg/dl Direct Bilirubin 0.2 mg/dl Aspartate Amino Transf (AST/SGOT) 15 U/L Alanine Aminotransferase (ALT/SGPT) 30 U/L Alkaline Phosphatase 61 U/L Total Protein 6.0 gm/dl Albumin 2.7 gm/dl Assessment & Plan Ms. Burgess is improving overall. Unfortunately, as we discussed previously, her disease is progressing, when compared to her last scan in June,. She has been on a variety of treatments over the last few years and has derived slowly diminishing benefits, especially from her last few regimens. While there are some treatments she has not seen, I think that overall the pace of her disease is such that further treatment is likely of limited benefit. She expressed interest in seeing her team at [facility] again and I think that is reasonable, if for no other reason than to make her confident she is making the correct choice. I also think she should keep her appointment in our office next Saturday, 01/07 at 9:30. We will sign off for now, but would be happy to come back and address any further concerns she may have. With regard to her interest in a percutaneous nephrostomy, I think such a procedure would be contrary to the spirit of hospice and would expose her to risks of infections and bleeding. However, if she feels strongly about having it done, she can certainly proceed.
--- NOTE | 2017-01-03 14:08 | Progress Note ---
Subjective Date of Service: Jan 03, 2017. Subjective Pt evaluation today including: conversation w/ patient, conversation w/ family , physical exam, chart review, lab review, review of studies, conversation w/ application security consultant, review of inpatient medication list Spoke with pt at great length >30 minutes States pain improved on patch States shortness of breath about the same No other concerns addressed Daughter at bedside Problem List Medical Problems: (1) Acute dyspnea Status: Acute (2) Anemia Status: Chronic (3) Bilateral lower extremity edema Status: Acute (4) Change in mental status Status: Acute (5) Chest pressure Status: Acute (6) Dehydration Status: Acute (7) Dyspnea Status: Acute (8) Elevated troponin Status: Acute (9) Pneumonia Status: Acute (10) Primary cancer of ovary with widespread metastatic disease Status: Acute (11) SOB (shortness of breath) Status: Acute (12) Symptomatic anemia Status: Acute Review of Systems Constitutional: No chills, No fever Eyes: No redness, No worsening of vision ENT: No hearing loss, No sore throat Respiratory: + cough, + dyspnea at rest, + dyspnea on exertion, No shortness of breath, No sputum, No wheezing Cardiac: No chest pain, No orthopnea Abdomen: No constipation, No diarrhea, No nausea, No pain, No vomiting Musculoskeletal: + joint pain, No muscle pain Female : No dysuria, No urinary frequency Psychiatric: + anxiety, No depression symptoms Skin: No itch, No rash Objective Vital Signs Date Time Temp Pulse Resp B/P Pulse Ox O2 Delivery O2 Flow Rate FiO2 01/03/17 11:05 36.9 77 20 127/74 95 3.0 01/03/17 08:59 Nasal Cannula 2.0 01/03/17 07:41 79 16 90 Nasal Cannula 2.0 01/03/17 07:19 36.9 76 18 122/72 93 01/03/17 04:07 37.1 77 20 109/64 90 Nasal Cannula 2.0 01/03/17 02:05 80 16 92 Nasal Cannula 2.0 01/03/17 00:20 Nasal Cannula 2.0 01/03/17 00:00 36.7 84 18 120/57 92 2.0 01/02/17 22:00 Nasal Cannula 2.0 01/02/17 20:35 79 145/76 01/02/17 19:47 73 16 91 Nasal Cannula 2.0 01/02/17 19:25 37.4 79 16 124/74 94 2.0 01/02/17 16:29 Nasal Cannula 2.0 01/02/17 16:17 37.1 77 16 121/68 98 2.0 01/02/17 14:42 73 16 94 Nasal Cannula 2.0 Physical Exam General Appearance: WD/WN, + mild distress Neck: supple, no adenopathy Respiratory/Chest: chest non-tender, + decreased breath sounds Cardiovascular: no edema, no gallop Abdomen: non tender, soft Neurologic/Psychiatric: alert, normal mood/affect Laboratory Results Last 24 Hours Test 01/03/17 10:20 White Blood Count 12.84 K/uL Red Blood Count 2.83 M/uL Hemoglobin 8.8 g/dL Hematocrit 26.0 % Mean Corpuscular Volume 91.9 fL Mean Corpuscular Hemoglobin 31.1 pg Mean Corpuscular Hemoglobin Concent 33.8 g/dl Platelet Count 292 K/uL Mean Platelet Volume 7.7 fL Neutrophils (%) (Auto) 93.5 % Lymphocytes (%) (Auto) 3.5 % Monocytes (%) (Auto) 1.6 % Eosinophils (%) (Auto) 1.1 % Basophils (%) (Auto) 0.1 % Neutrophils # (Auto) 12.00 K/uL Lymphocytes # (Auto) 0.45 K/uL Monocytes # (Auto) 0.21 K/uL Eosinophils # (Auto) 0.14 K/uL Basophils # (Auto) 0.01 K/uL RDW Standard Deviation 53.7 fL RDW Coefficient of Variation 16.0 % Immature Granulocyte % (Auto) 0.2 % Immature Granulocyte # (Auto) 0.03 K/uL Red Blood Cell Morphology Unremarkable Prothrombin Time 10.7 SECONDS Prothromb Time International Ratio 1.0 Activated Partial Thromboplast Time 42.7 SECONDS Partial Thromboplastin Ratio 1.6 Sodium Level 140 mmol/L Potassium Level 4.2 mmol/L Chloride Level 106 mmol/L Carbon Dioxide Level 27 mmol/L Anion Gap 7.0 mmol/L Blood Urea Nitrogen 36 mg/dl Creatinine 1.50 mg/dl Est Creatinine Clear Calc Drug Dose 28.9 ml/min Estimated GFR () 39.6 Estimated GFR (Non- 34.2 BUN/Creatinine Ratio 23.8 Random Glucose 99 mg/dl Calcium Level 9.2 mg/dl Magnesium Level 2.0 mg/dl Total Bilirubin 0.6 mg/dl Direct Bilirubin 0.2 mg/dl Aspartate Amino Transf (AST/SGOT) 15 U/L Alanine Aminotransferase (ALT/SGPT) 30 U/L Alkaline Phosphatase 61 U/L Total Protein 6.0 gm/dl Albumin 2.7 gm/dl Assessment and Plan Shortness of breath - No evidence of PNA on CXR, vanc ertapenem and levaquin discontinued, cont xopenex with atrovent nebulizers to use every 6 hours while awake to 2 hours when necessary, and pulmicort Respules 0.5 mg inhaled twice a day. Nasal cannula 2 L O2 titrated to keep pulse ox greater than or equal to 92 %. Bilateral lower extremities were negative for DVT. Due to her creatinine of 1.6, the CT angiography of chest cannot be ordered to assess her pulmonary embolism, so therefore, a ventilation/perfusion scan was low probability for DVT. Will order 2 step, will likely require O2 on discharge Abdominal CT that revealed a 13 cm RP todd mass. Her last PET/CT, from before her paclitaxel started, measured this mass as ~8 cm, suggesting marked progression. Failed numerous treatments in the past. Palliative care consulted, pt remins full code. Will f/u with oncology as outpt. Hypertension/venous insufficiency/chronic kidney disease stage III--continue metoprolol succinate ER 12.5 mg by mouth every morning, hydralazine 75 mg by mouth 4 times a day, diltiazem CD 240 mg by mouth twice a day. We will hold furosemide. Arthritis--continue hydroxychloroquine sulfate 200 mg by mouth twice a day, and duloxetine 20 mg by mouth twice a day. GERD--continue ranitidine 150 mg by mouth every morning. Vitamin B12 deficiency--continue supplement daily. Anxiety--continue alprazolam 0.5 mg by mouth daily when necessary. Pt is FULL CODE
[2017-01-03] MEDS: ACETAMINOPHEN 325 MG TAB PO PRN (15:35)
[2017-01-03] MEDS ORDERED: SENNA 8.6 MG TAB PO ONE (15:55)
[2017-01-04] VITALS (11 sets, daily range): BP systolic 97–137; BP diastolic 59–72; PULSE 67–79; TEMP 36.6–37.5; O2SAT 90–98
[2017-01-04] MEDS: ONDANSETRON INJ 2 MG/ML 2 ML VIAL IV PRN (00:34)
[2017-01-04] MEDS: TRAMADOL HCL 50 MG TAB PO PRN ×4 (00:34→19:53)
[2017-01-04] MEDS: IPRATROPIUM BROMIDE NEB SOLN 0.02% 2.5 ML VIAL INH SCH ×4 (02:09→19:15)
[2017-01-04] MEDS: LEVALBUTEROL 1.25MG/0.5ML NEB INH SCH ×4 (02:09→19:15)
[2017-01-04] MEDS: GUAIFENESIN 200 MG TAB PO SCH ×2 (05:34→17:37)
[2017-01-04] MEDS: BUDESONIDE 0.5 MG/2 ML VIAL (PULMICORT) INH SCH ×2 (07:11→19:15)
[2017-01-04] MEDS: SENNA 8.6 MG TAB PO SCH (08:00)
[2017-01-04] MEDS: DILTIAZEM HCL 240 MG CAPCR PO SCH ×2 (08:20→19:55)
[2017-01-04] MEDS: CALCIUM 600MG + VIT D 400 IU TAB PO SCH ×2 (08:20→19:54)
[2017-01-04] MEDS: DOCUSATE SODIUM 100 MG CAP PO SCH (08:20)
[2017-01-04] MEDS: HYDROXYCHLOROQUINE SULFATE 200 MG TAB PO SCH ×2 (08:21→19:54)
[2017-01-04] MEDS: MULTIVITAMIN TAB PO SCH (08:21)
[2017-01-04] MEDS: CYANOCOBALAMIN 500 MCG TAB (VIT B-12) PO SCH (08:22)
[2017-01-04] MEDS: METOPROLOL SUCC 25MG EXT REL TAB PO SCH (08:22)
[2017-01-04] MEDS: CHOLECALCIFEROL 1000 INTER.UNIT TAB PO SCH (08:23)
[2017-01-04] MEDS: RANITIDINE HCL 150 MG TAB PO SCH (08:23)
[2017-01-04] MEDS: LIDODERM (LIDOCAINE) PATCH 5% TD SCH (08:24)
[2017-01-04] MEDS: DULOXETINE HCL 20 MG CAP PO SCH ×2 (09:23→19:54)
[2017-01-04] MEDS: DICLOFENAC SOD 1% GEL 100 GM TUBE EXT PRN (12:16)
--- NOTE | 2017-01-04 12:41 | Progress Note ---
Subjective Date of Service: Jan 04, 2017. Subjective Pt evaluation today including: conversation w/ patient, conversation w/ family , physical exam, chart review, lab review, review of studies, review of inpatient medication list Pain remains uncontrolled States pain mostly in right arm from shoulder down States prednisone has helped in the past Problem List Medical Problems: (1) Acute dyspnea Status: Acute (2) Anemia Status: Chronic (3) Bilateral lower extremity edema Status: Acute (4) Change in mental status Status: Acute (5) Chest pressure Status: Acute (6) Dehydration Status: Acute (7) Dyspnea Status: Acute (8) Elevated troponin Status: Acute (9) Pneumonia Status: Acute (10) Primary cancer of ovary with widespread metastatic disease Status: Acute (11) SOB (shortness of breath) Status: Acute (12) Symptomatic anemia Status: Acute Review of Systems Constitutional: No chills, No fever Respiratory: No cough, No dyspnea on exertion, No shortness of breath, No sputum, No wheezing Cardiac: No chest pain, No orthopnea Abdomen: No diarrhea, No nausea, No pain, No vomiting Musculoskeletal: + joint pain, No muscle pain Female : No dysuria, No urinary frequency Objective Vital Signs Date Time Temp Pulse Resp B/P Pulse Ox O2 Delivery O2 Flow Rate FiO2 01/04/17 11:37 37.3 67 20 103/61 93 01/04/17 11:19 37.3 67 20 103/61 93 01/04/17 08:00 Nasal Cannula 3.0 01/04/17 07:43 37.5 73 18 109/67 94 3.0 01/04/17 07:11 73 16 91 Nasal Cannula 3.0 01/04/17 04:24 37.3 77 20 116/69 91 Nasal Cannula 2.0 01/04/17 01:05 37.5 79 18 137/72 91 Nasal Cannula 2.0 01/04/17 00:00 Nasal Cannula 3.0 01/03/17 20:03 37.2 71 18 117/68 92 Nasal Cannula 3.0 01/03/17 19:05 75 16 91 Nasal Cannula 3.0 01/03/17 16:00 Nasal Cannula 3.0 01/03/17 15:39 37.5 77 20 112/67 91 Nasal Cannula 3.0 01/03/17 14:32 77 16 92 Nasal Cannula 3.0 Physical Exam General Appearance: WD/WN, no apparent distress Neck: supple, no adenopathy Respiratory/Chest: lungs clear, + decreased breath sounds Cardiovascular: no edema, no gallop Abdomen: non tender, soft Neurologic/Psychiatric: alert, normal mood/affect Laboratory Results Last 24 Hours Test 01/04/17 11:53 Assessment and Plan Shortness of breath - No evidence of PNA on CXR, vanc ertapenem and levaquin discontinued, cont xopenex with atrovent nebulizers to use every 6 hours while awake to 2 hours when necessary, and pulmicort Respules 0.5 mg inhaled twice a day. Nasal cannula 2 L O2 titrated to keep pulse ox greater than or equal to 92 %. Bilateral lower extremities were negative for DVT. Due to her creatinine of 1.6, the CT angiography of chest cannot be ordered to assess her pulmonary embolism, so therefore, a ventilation/perfusion scan was low probability for DVT. Will order 2 step, will likely require O2 on discharge Chronic pain, cont lidoderm patch, voltaren, prednisone started as well Abdominal CT that revealed a 13 cm RP todd mass. Her last PET/CT, from before her paclitaxel started, measured this mass as ~8 cm, suggesting marked progression. Failed numerous treatments in the past. Palliative care consulted, pt remins full code. Will f/u with oncology as outpt. Hypertension/venous insufficiency/chronic kidney disease stage III--continue metoprolol succinate ER 12.5 mg by mouth every morning, hydralazine 75 mg by mouth 4 times a day, diltiazem CD 240 mg by mouth twice a day. We will hold furosemide. Arthritis--continue hydroxychloroquine sulfate 200 mg by mouth twice a day, and duloxetine 20 mg by mouth twice a day. GERD--continue ranitidine 150 mg by mouth every morning. Vitamin B12 deficiency--continue supplement daily. Anxiety--continue alprazolam 0.5 mg by mouth daily when necessary. Pt is FULL CODE
[2017-01-04 13:10] LABS: HEMATOCRIT 24.1 % (37-47); MEAN CELL VOLUME 92.3 fL (80-100); MEAN CORPUSCULAR HGB CONC 33.6 g/dl (32-36); PLATELET COUNT 284 K/uL (130-400); RED BLOOD COUNT 2.61 M/uL (4.2-5.4); WHITE BLOOD COUNT 14.34 K/uL (4.8-10.8)
[2017-01-04] MEDS ORDERED: VANCOMYCIN TROUGH SCH (13:30)
[2017-01-04 14:38] LABS: BASO % 0.1 %; BASO ABS # 0.01 K/uL (0-0.2); COMPLETE YES; EOS % 1.3 %; IG% 0.2 %; LYMPH % 4.2 %; MONO % 1.6 %; NEUT % 92.6 %
[2017-01-04 18:04] LABS: URINE APPEARANCE TURBID (CLEAR); URINE BILIRUBIN NEG (NEG); URINE COLOR DK YELLOW; URINE EPITHELIAL CELL AUTO >30 /lpf (0-5); URINE NITRITE NEG (NEG); URINE SPECIFIC GRAVITY 1.021 (1.000-1.030); UROBILINOGEN NEG (NEG)
[2017-01-04 18:07] LABS: MANUAL MICROSCOPIC REQUIRED? NO; REVIEW REQ? YES
[2017-01-04 18:19] LABS: URINE PATH CASTS 0-3 GRANULAR CASTS /lpf (0)
[2017-01-05] VITALS (7 sets, daily range): BP systolic 104–114; BP diastolic 55–68; PULSE 73–80; TEMP 37.1–37.3; O2SAT 90–97
[2017-01-05] MEDS: LEVALBUTEROL 1.25MG/0.5ML NEB INH SCH ×3 (01:16→14:10)
[2017-01-05] MEDS: IPRATROPIUM BROMIDE NEB SOLN 0.02% 2.5 ML VIAL INH SCH ×3 (01:16→14:10)
[2017-01-05] MEDS: TRAMADOL HCL 50 MG TAB PO PRN ×2 (04:28→10:32)
[2017-01-05] MEDS: GUAIFENESIN 200 MG TAB PO SCH (04:29)
[2017-01-05] MEDS: DICLOFENAC SOD 1% GEL 100 GM TUBE EXT PRN (04:39)
[2017-01-05] MEDS: BUDESONIDE 0.5 MG/2 ML VIAL (PULMICORT) INH SCH (07:47)
[2017-01-05] MEDS: CALCIUM 600MG + VIT D 400 IU TAB PO SCH (09:13)
[2017-01-05] MEDS: DILTIAZEM HCL 240 MG CAPCR PO SCH (09:14)
[2017-01-05] MEDS: DOCUSATE SODIUM 100 MG CAP PO SCH (09:15)
[2017-01-05] MEDS: MULTIVITAMIN TAB PO SCH (09:16)
[2017-01-05] MEDS: DULOXETINE HCL 20 MG CAP PO SCH (09:16)
[2017-01-05] MEDS: HYDROXYCHLOROQUINE SULFATE 200 MG TAB PO SCH (09:17)
[2017-01-05] MEDS: METOPROLOL SUCC 25MG EXT REL TAB PO SCH (09:18)
[2017-01-05] MEDS: SENNA 8.6 MG TAB PO SCH (09:18)
[2017-01-05] MEDS: CYANOCOBALAMIN 500 MCG TAB (VIT B-12) PO SCH (09:19)
[2017-01-05] MEDS: CHOLECALCIFEROL 1000 INTER.UNIT TAB PO SCH (09:19)
[2017-01-05] MEDS: RANITIDINE HCL 150 MG TAB PO SCH (09:20)
[2017-01-05] MEDS: LIDODERM (LIDOCAINE) PATCH 5% TD SCH (09:24)
[2017-01-05] MEDS ORDERED: FENTANYL PATCH REMOVE & WASTE SCH (09:59)
[2017-01-05] MEDS ORDERED: FENTANYL 12 MCG/HR TDSY TD SCH (10:00)
--- NOTE | 2017-01-05 10:47 | Progress Note ---
Subjective Date of Service: Jan 05, 2017. Subjective Pt evaluation today including: conversation w/ patient, physical exam, chart review, lab review, review of studies, review of inpatient medication list States joint pain worsening in shoulder arms and wrists No N/V/D or abdominal pain No fevers or chills Problem List Medical Problems: (1) Acute dyspnea Status: Acute (2) Anemia Status: Chronic (3) Bilateral lower extremity edema Status: Acute (4) Change in mental status Status: Acute (5) Chest pressure Status: Acute (6) Dehydration Status: Acute (7) Dyspnea Status: Acute (8) Elevated troponin Status: Acute (9) Pneumonia Status: Acute (10) Primary cancer of ovary with widespread metastatic disease Status: Acute (11) SOB (shortness of breath) Status: Acute (12) Symptomatic anemia Status: Acute Review of Systems Constitutional: No chills, No fever Respiratory: No cough, No dyspnea on exertion, No shortness of breath, No sputum, No wheezing Cardiac: No chest pain, No orthopnea Abdomen: No diarrhea, No nausea, No pain, No vomiting Musculoskeletal: No joint pain, No muscle pain Female : No dysuria, No urinary frequency Objective Vital Signs Date Time Temp Pulse Resp B/P Pulse Ox O2 Delivery O2 Flow Rate FiO2 01/05/17 07:47 73 16 93 Nasal Cannula 3.0 01/05/17 07:03 37.3 74 18 104/55 97 01/05/17 05:25 37.1 73 18 114/68 90 Nasal Cannula 3.0 01/05/17 00:00 Nasal Cannula 3.0 01/04/17 23:12 36.6 71 18 97/59 91 Nasal Cannula 3.0 01/04/17 19:59 Nasal Cannula 3.0 01/04/17 19:23 36.8 68 18 109/66 98 Nasal Cannula 3.0 01/04/17 19:15 76 16 95 Nasal Cannula 3.0 01/04/17 16:00 Nasal Cannula 3.0 01/04/17 14:54 37.0 68 18 104/64 92 01/04/17 14:12 69 16 90 Nasal Cannula 3.0 01/04/17 11:37 37.3 67 20 103/61 93 01/04/17 11:19 37.3 67 20 103/61 93 Physical Exam General Appearance: WD/WN, no apparent distress Neck: supple, no adenopathy Respiratory/Chest: lungs clear, normal breath sounds Cardiovascular: no edema, no gallop Abdomen: non tender, soft Neurologic/Psychiatric: alert, oriented x 3 Laboratory Results Last 24 Hours Test 01/04/17 13:00 01/04/17 17:45 01/05/17 10:24 White Blood Count 14.34 K/uL Red Blood Count 2.61 M/uL Hemoglobin 8.1 g/dL Hematocrit 24.1 % Mean Corpuscular Volume 92.3 fL Mean Corpuscular Hemoglobin 31.0 pg Mean Corpuscular Hemoglobin Concent 33.6 g/dl Platelet Count 284 K/uL Mean Platelet Volume 8.0 fL Neutrophils (%) (Auto) 92.6 % Lymphocytes (%) (Auto) 4.2 % Monocytes (%) (Auto) 1.6 % Eosinophils (%) (Auto) 1.3 % Basophils (%) (Auto) 0.1 % Neutrophils # (Auto) 13.29 K/uL Lymphocytes # (Auto) 0.60 K/uL Monocytes # (Auto) 0.23 K/uL Eosinophils # (Auto) 0.18 K/uL Basophils # (Auto) 0.01 K/uL RDW Standard Deviation 53.1 fL RDW Coefficient of Variation 15.8 % Immature Granulocyte % (Auto) 0.2 % Immature Granulocyte # (Auto) 0.03 K/uL Urine Color DK YELLOW Urine Appearance TURBID Urine pH 5.0 Urine Specific [place] 1.021 Urine Protein 2+ Urine Glucose (UA) NEG Urine Ketones TRACE Urine Occult Blood 2+ Urine Nitrite NEG Urine Bilirubin NEG Urine Urobilinogen NEG Urine Leukocyte Esterase LARGE Urine WBC (Auto) >30 /hpf Urine RBC (Auto) >30 /hpf Urine Hyaline Casts (Auto) 10-30 /lpf Urine Epithelial Cells (Auto) >30 /lpf Urine Bacteria (Auto) NEG Urine Pathogenic Casts 0-3 GRANULAR CASTS /lpf Urine Yeast (Auto) Assessment and Plan Shortness of breath - No evidence of PNA on CXR, vanc ertapenem and levaquin discontinued, cont xopenex with atrovent nebulizers to use every 6 hours while awake to 2 hours when necessary, and pulmicort Respules 0.5 mg inhaled twice a day. Nasal cannula 2 L O2 titrated to keep pulse ox greater than or equal to 92 %. Bilateral lower extremities were negative for DVT. Due to her creatinine of 1.6, the CT angiography of chest cannot be ordered to assess her pulmonary embolism, so therefore, a ventilation/perfusion scan was low probability for DVT. O2 on discharge per 2 step Chronic pain, cont lidoderm patch, voltaren, prednisone started as well, if worsening will start on fentanyl patch Abdominal CT that revealed a 13 cm RP todd mass. Her last PET/CT, from before her paclitaxel started, measured this mass as ~8 cm, suggesting marked progression. Failed numerous treatments in the past. Palliative care consulted, pt remins full code. Will f/u with oncology as outpt. Hypertension/venous insufficiency/chronic kidney disease stage III--continue metoprolol succinate ER 12.5 mg by mouth every morning, hydralazine 75 mg by mouth 4 times a day, diltiazem CD 240 mg by mouth twice a day. We will hold furosemide. Arthritis--continue hydroxychloroquine sulfate 200 mg by mouth twice a day, and duloxetine 20 mg by mouth twice a day. GERD--continue ranitidine 150 mg by mouth every morning. Vitamin B12 deficiency--continue supplement daily. Anxiety--continue alprazolam 0.5 mg by mouth daily when necessary. Pt is FULL CODE
[2017-01-05] MEDS ORDERED: VLTG EXT (13:01)
[2017-01-05] MEDS ORDERED: DRGTP12 TD (13:01)
[2017-01-05] MEDS ORDERED: GUAI1TAB68 PO (13:01)
[2017-01-05] MEDS ORDERED: SNK PO (13:01)
[2017-01-05] MEDS ORDERED: LDDP5 TD (13:01)
[2017-01-05] MEDS ORDERED: AMB5 PO (13:01)
[2017-01-05] MEDS ORDERED: ULT50X PO (13:01)
[2017-01-05] MEDS ORDERED: PRD20 PO (13:01)
--- NOTE | 2017-01-05 13:08 | Discharge Instructions ---
Discharge Instructions Date of Service Jan 05, 2017. Admission Reason for Admission: Anemia,Pneumonia Discharge Discharge Diagnosis / Problem: Pneumonia, anemia Discharge Goals Goal(s): Decrease discomfort, Improve function, Increase independence, Improve disease control, Improve nutritional status, Learn about illness, Diagnostic testing, Prevent Disease Progression Activity Recommendations Activity Limitations: resume your previous activity Shower/Bathe: no limitations . Instructions / Follow-Up Instructions / Follow-Up Patient to be discharged home with home health Patient will be discharged with oxygen provided by [facility] Prescription for prednisone, fentanyl and lidoderm patches, tramadol, ambien and mucinex provided, please take as directed Please follow up with Dr Codey Cavazos as scheduled Please follow up with Dr Crocker in 1-2 weeks If worsening chest pain, shortness of breath, fevers, chills or confusion, please report to ER Current Hospital Diet Patient's current hospital diet: Regular Diet Discharge Diet Recommended Diet: Regular Diet Pending Studies Studies pending at discharge: no Medical Emergencies . Who to Call and When: Medical Emergencies: If at any time you feel your situation is an emergency, please call 911 immediately. . Non-Emergent Contact Non-Emergency issues call your: Primary Care Provider Call Non-Emergent contact if: you have a fever, your pain is worsening . . "Provider Documentation" section prepared by Igor Zapata. VTE Core Measure Inpt VTE Proph given/why not?: SCD's
--- NOTE | 2017-01-05 13:38 | Discharge Summary ---
Discharge Summary Date of Service Jan 05, 2017. Discharge Summary Admission Date: Jan 01, 2017 at 01:18 Discharge Date: Jan 05, 2017 Discharge Disposition: Home with services Principal Diagnosis: Chronic resp failure, chronic pain Problems/Secondary Diagnoses: (1) Anemia Status: Chronic Immunizations: Have You Had Influenza Vaccine: Yes History of Tetanus Vaccine?: unknown History of Pneumococcal: Yes History of Hepatitis B Vaccine: No Medication Reconciliation New Medications: Diclofenac Sod (Voltaren) 100 Appln/100 Gm Gel 1 APPLN EXT Q8 PRN for Pain, #1 TUBE Fentanyl (Fentanyl) 12 Mcg Tdsy 12 MCG TD Q3D@0900, #10 PATCH Guaifenesin (Organ-I Nr) 200 Mg Tab 600 MG PO Q12H for 7 Days, #14 TAB Lidocaine (Lidocaine) 1 Patch Tdsy 1 PATCH TD QAM, #30 PATCH Prednisone (Prednisone) 20 Mg Tab 20 MG PO DAILY, #30 TAB Senna (Senna Lax) 8.6 Mg Tab 8.6 MG PO QAM, #30 TAB Tramadol HCl (Tramadol HCl) 50 Mg Tab 50 MG PO Q4H PRN for Pain, #30 TAB Zolpidem Tartrate (Zolpidem Tartrate) 5 Mg Tab 5 MG PO HSZ PRN for Insomnia, #30 TAB Continued Medications: Albuterol Hfa (Ventolin Hfa) 200 Puffs/76816 Mcg Aers 2 PUFFS INH Q6H PRN for Shortness of Breath, #1 INHALER Albuterol Sulf (Albuterol Sulfate) 2.5 Mg/0.5 Ml Nebu 1 INHA INH UD PRN for Shortness of Breath Alprazolam (Xanax) 0.5 Mg Tab 0.5 MG PO DAILY PRN for Anxiety, TAB Calcium/Vitamin D (Os-[place] 500 Plus D) Tab 2 TAB PO BID, TAB Cholecalciferol (Vitamin D3) 2,000 Unit Cap 1 CAP PO QAM for 90 Days, #90 CAP 3 Refills Cyanocobalamin (Vitamin B12) 1,000 Mcg Tab 1 TAB PO QAM Diltiazem Hcl (Diltiazem Cd) 240 Mg Capcr 240 MG PO BID, #90 Docusate Sodium (Colace) 100 Mg Cap 1 CAP PO DAILY, CAP Duloxetine HCl (Cymbalta) 20 Mg Cap 20 MG PO BID for 30 Days, #60 CAP Furosemide (Lasix) 20 Mg Tab 20 MG PO 3XWK, TAB mon, wed, fri Furosemide (Lasix) 20 Mg Tab 40 MG PO 4XWK, TAB tue, th, sat, sun Hydralazine Hcl (Apresoline) 100 Mg Tab 75 MG PO QID, TAB Hydroxychloroquine Sulfate (Plaquenil) 200 Mg Tab 200 MG PO BID, TAB Metoprolol Succinate (Metoprolol Succinate ER) 25 Mg Tabcr 12.5 MG PO QAM, #30 Multivitamin (Multivitamin) Tab 1 TABLET PO QAM, 0 Refills Ranitidine Hcl (Zantac) 150 Mg Tab 150 MG PO QAM, TAB Discharge Exam Review of Systems: Constitutional: + weakness, No chills, No fever Respiratory: + shortness of breath, No cough, No sputum, No wheezing Cardiovascular: No chest pain, No orthopnea Abdomen: No diarrhea, No nausea, No pain, No vomiting Musculoskeletal: + joint pain, No muscle pain Genitourinary - Female: No dysuria, No urinary frequency, No urinary urgency Neurologic: No paralysis, No weakness Physical Exam: General Appearance: WD/WN, no apparent distress Neck: supple, no adenopathy Respiratory/Chest: chest non-tender, + decreased breath sounds Cardiovascular: no edema, no gallop Abdomen / GI: non tender, soft Neurologic/Psychiatric: alert, oriented x 3 Skin: warm/dry, no rash Hospital Course Chronic respiratory failure, shortness of breath - No evidence of PNA on CXR, vanc ertapenem and levaquin discontinued, cont xopenex with atrovent nebulizers to use every 6 hours while awake to 2 hours when necessary, and pulmicort Respules 0.5 mg inhaled twice a day. Nasal cannula 2 L O2 titrated to keep pulse ox greater than or equal to 92%. Bilateral lower extremities were negative for DVT. Due to her creatinine of 1.6, the CT angiography of chest cannot be ordered to assess her pulmonary embolism, so therefore, a ventilation/ perfusion scan was low probability for DVT. O2 on discharge per 2 step Acute metabolic encephalopathy - Unalbe to do MRI although resolved, B12, thiamine, ammonia unremarkable. No infectious cause Chronic pain, cont lidoderm patch, voltaren, prednisone, and fentanyl patch Abdominal CT that revealed a 13 cm RP todd mass. Her last PET/CT, from before her paclitaxel started, measured this mass as ~8 cm, suggesting marked progression. Failed numerous treatments in the past. Palliative care consulted, pt remins full code. Will f/u with oncology as outpt. Hypertension/venous insufficiency/chronic kidney disease stage III--continue metoprolol succinate ER 12.5 mg by mouth every morning, hydralazine 75 mg by mouth 4 times a day, diltiazem CD 240 mg by mouth twice a day. We will hold furosemide. Arthritis--continue hydroxychloroquine sulfate 200 mg by mouth twice a day, and duloxetine 20 mg by mouth twice a day. GERD--continue ranitidine 150 mg by mouth every morning. Vitamin B12 deficiency--continue supplement daily. Anxiety--continue alprazolam 0.5 mg by mouth daily when necessary. Pt is FULL CODE Total Time Spent: Greater than 30 minutes This includes examination of the patient, discharge planning, medication reconciliation, and communication with other providers. Discharge Instructions Please refer to the electronic Patient Visit Report (Discharge Instructions) for additional information. Additional Copies To Krzysztof Crocker MD
[2017-01-05] MEDS ORDERED: CHECK FENTANYL PATCH PLACEMENT SCH (16:00)
--- NOTE | 2017-01-07 10:03 | EDITING REQUIRED CODING QUERY ---
CODING QUERY To promote full compliance with coding requirements relating to patient care, provider participation is requested in all cases of medical biller coder uncertainty. Please assist us with the question(s) below: Coding Question(s): Please clarify if the Acute Metabolic Encephalopathy (documented on discharge summary), was present on admission or developed during stay. Thank you! (X) Acute Metabolic Encephalopathy, present on admission () Acute Metabolic Encephalopathy, not POA (developed during stay) () Other, explain Thank you! Jeanne Parrish Principal Diagnosis: "_that condition established after study, to be chiefly responsible for occasioning the admission of the patient to the hospital for care." Co-Existing Principal Diagnosis: "_when two or more diagnoses equally meet the criteria for principal diagnosis as determined by the circumstances of admission, diagnostic work up, and/or therapy provided, and the Alphabetic Index, Tabular List, or another coding guideline does not provide sequencing direction, any one of the diagnoses may be sequenced first." "When the physician has documented what appears to be a current diagnosis in the body of the record, but has not included the diagnosis in the final diagnostic statement, the physician should be asked whether the diagnosis should be added." (Source Coding [facility] 2 QTR90. p3-4)
== END 2017-01-05 16:15 | disposition home health service (06) | DRG 193 ==
LOC: ENRESERVTM → ENRESERVDT → EDSEX 16:45 → EDBD 16:45 → C.EDB 16:47 → C.4E 01-01 01:18 → EDBEDREQSVC 01-01 01:25
PROVIDERS: ADMIT Hospitalist; ATTEND Hospitalist
DX: J18.9 Pneumonia, unspecified organism (principal); G93.41 Metabolic encephalopathy; C56.9 Malignant neoplasm of unspecified ovary; J96.10 Chronic respiratory failure, unspecified whether with hypoxia or hypercapnia; J44.9 Chronic obstructive pulmonary disease, unspecified; I12.9 Hypertensive chronic kidney disease with stage 1 through stage 4 chronic kidney disease, or unspecified chronic kidney disease; N18.3 Chronic kidney disease, stage 3 (moderate); M19.90 Unspecified osteoarthritis, unspecified site; K21.9 Gastro-esophageal reflux disease without esophagitis; E53.8 Deficiency of other specified B group vitamins; F31.9 Bipolar disorder, unspecified; G89.29 Other chronic pain; Z79.899 Other long term (current) drug therapy; D63.8 Anemia in other chronic diseases classified elsewhere; D48.9 Neoplasm of uncertain behavior, unspecified; N28.9 Disorder of kidney and ureter, unspecified; G58.9 Mononeuropathy, unspecified

== ENCOUNTER → 2017-01-09 | Outpatient (CLI) | payer OTHER ==
[~2017-01-09] MED LIST changes: -ACET-1256 PO; +AMB5 PO; -DILT120C68 PO; +DLTCD/240 PO; +DOCU-94 PO; +DRGTP12 TD; +GUAI1TAB68 PO; +LDDP5 TD; +PRD20 PO; +SNK PO; +TPRSR/25 PO; +ULT50X PO; +VLTG EXT
== END | disposition home or self-care (01) ==
LOC: C.LABSPEC 10:32
PROVIDERS: ATTEND Urology
DX: N39.0 Urinary tract infection, site not specified (principal)

== ENCOUNTER → 2017-01-16 | Outpatient (CLI) | payer OTHER ==
[2017-01-16 14:56] LABS: BLOOD UREA NITROGEN 25 mg/dl (7-18); BUN/CREATININE RATIO 17.6 (10-20); CALCIUM 8.8 mg/dl (8.5-10.1); CARBON DIOXIDE 29 mmol/L (21-32); CHLORIDE 101 mmol/L (98-107); GLUCOSE 100 mg/dl (70-99); MAGNESIUM 1.9 mg/dl (1.8-2.4); PHOSPHORUS 2.2 mg/dl (2.5-4.9); POTASSIUM 3.6 mmol/L (3.5-5.1); SODIUM 139 mmol/L (136-145)
== END | disposition home or self-care (01) ==
LOC: C.LAB1850 10:55
PROVIDERS: ATTEND Internal Medicine Nephrology
DX: N18.3 Chronic kidney disease, stage 3 (moderate) (principal); N13.30 Unspecified hydronephrosis